=== PATIENT | female | born 1975 | race Caucasian/White ===

== ENCOUNTER 2017-04-27 01:05 | Emergency (ER) | payer SELFPAY ==
[~2017-04-27] VITALS: Ht 162.6 cm; Wt 131.5 kg
[2017-04-27] MEDS ORDERED: methylPREDNISolone 125 MG (Solu-MEDROL) VIAL IV STA (01:22)
--- NOTE | 2017-04-27 01:22 | ED Cough/URI ---
General Stated Complaint: SOB Source: patient History of Present Illness Time seen by provider: 01:13 Initial Comments PT ARRIVES VIA POV FROM HOME C/O PRODUCTIVE COUGH X 2 WEEKS--BROWN/GREEN SPUTUM AT TIMES SHE COUGHS SO HARD IT CAUSES HER TO CHOKE AND GET SHORT OF BREATH HAS HAD A LOT OF POST NASAL DRAINAGE C/O SUBJECTIVE FEVER AND CHILLS C/O GENERALIZED WEAKNESS PT SAW [employer] [facility] 2 WEEKS AGO FOR THIS AND WAS GIVEN RX FOR PREDNISONE X 5 DAYS AND WAS BETTER WHILE SHE WAS TAKING THEM, THEN WHEN FINISHED, SHE HAD INCREASED NASAL DRAINAGE AND INCREASED COUGH HAS NOT FOLLOWED UP SINCE THEN PT DOES HAVE COPD AND HAS USED HER ALBUTEROL INHALER 5-6 TIMES TODAY WITHOUT RELIEF--LAST USED 30 MINUTES AGO PCP: [facility], DR. Omar GONZALEZ Allergies and Home Medications Allergies Coded Allergies: acetaminophen (Verified Allergy, Intermediate, ITCHING, 04/27/17) oxycodone (Verified Allergy, Intermediate, ITCHING, 04/27/17) Home Medications Albuterol 8.5 Gm Hfa.aer.ad, (Reported) Ascorbate Calcium 500 Mg Tablet, (Reported) Aspirin 81 Mg Chew, (Reported) Benzonatate 100 Mg Capsule, 1-2 TAB PO TID, #30 Prescribed by: MAGGIE RAJPUT on 04/27/17237 Ferrous Sulfate 325 Mg Tablet, (Reported) Gabapentin 300 Mg Capsule, (Reported) Guaifenesin/Dextromethorphan 1 Each Tbmp.12hr, 1 EACH PO BID for 10 Days, #20 Prescribed by: MAGGIE RAJPUT on 04/27/17237 Hydrochlorothiazide 25 Mg Tab, (Reported) Levofloxacin 500 Mg Tablet, 500 MG PO DAILY, #10 Prescribed by: MAGGIE RAJPUT on 04/27/17 0238 Methylprednisolone 4 Mg Tab.ds.pk, 4 MG PO UD, #1 Prescribed by: MAGGIE RAJPUT on 04/27/17 023 Naproxen 500 Mg Tablet, (Reported) Oxymetazoline HCl 30 Ml Mist, (Reported) Propranolol Hcl 10 Mg Tablet, (Reported) Ranitidine HCl 150 Mg Tablet, (Reported) Constitutional: see HPI, chills, fever, weakness EENTM: see HPI, nose congestion, other (NASAL DRAINAGE) Respiratory: see HPI, cough, phlegm, short of breath Cardiovascular: no symptoms reported Gastrointestinal: no symptoms reported Genitourinary: no symptoms reported : No LMP: Apr 13, 2017 Musculoskeletal: no symptoms reported Skin: no symptoms reported Psychiatric/Neurological: No Symptoms Reported Hematologic/Lymphatic: No Symptoms Reported Immunological/Allergic: no symptoms reported Past Kyblbdz-Ucgzuc-Ursjga Hx Patient Social History Alcohol Use: Occasionally Uses Recreational Drug Use: No Smoking Status: Current Everyday Smoker (1/2 PPD) Type Used: Cigarettes Recent Foreign Travel: No Contact w/Someone Who Travel: No Surgeries History of Surgeries: Yes ( X 3; EXPLORATORY LAPAROSCOPY) Surgeries: Abdominal, Section, Tubal Ligation Respiratory History of Respiratory Disorde: Yes Respiratory Disorders: Asthma, COPD Cardiovascular History of Cardiac Disorders: Yes Cardiac Disorders: Hypertension Neurological History of Neurological Disord: No Reproductive System : No Hx Reproductive Disorders: No [employer] History: Tubal Ligation Genitourinary History of Genitourinary Disor: No Gastrointestinal History of Gastrointestinal Di: No Musculoskeletal History of Musculoskeletal Dis: Yes (SCIATICA) Musculoskeletal Disorders: Chronic Back Pain Endocrine History of Endocrine Disorders: No HEENT History of HEENT Disorders: No Cancer History of Cancer: No Psychosocial History of Psychiatric Problem: No Integumentary History of Skin or Integumenta: No Blood Transfusions History of Blood Disorders: No Physical Exam Vital Signs Vital Sign - Last 12Hours 04/27/17 01:33 Temp 98.3 Pulse 90 Resp 18 B/P (MAP) 138/82 Pulse Ox 93 O2 Delivery Room Air Capillary Refill : General Appearance: WD/WN, no apparent distress, obese, other (STRONG ODOR OF CIGARETTES. TALKS LOUDLY AT LENGTH. DOES NOT APPEAR TO BE DYSPNEIC) HEENT: PERRL/EOMI, other (POST NASAL DRAINAGE) Neck: normal inspection Respiratory: no respiratory distress, no accessory muscle use, decreased breath sounds (LUNG SOUNDS DIMINISHED IN ALL LUNG BUNCH) Cardiovascular: regular rate, rhythm, no edema, no JVD, no murmur Gastrointestinal: normal bowel sounds, non tender, soft Extremities: normal inspection, no pedal edema, no calf tenderness, normal capillary refill Neurologic/Psychiatric: factorer II-XII nml as tested, no motor/sensory deficits, alert, normal mood/affect, oriented x 3 Skin: normal color, warm/dry Focused Exam Evaluation Lactate Level Laboratory Tests 04/27/17 02:19: Lactic Acid Level 1.72 Lactic Acid Level Laboratory Tests Test 04/27/17 02:19 Lactic Acid Level 1.72 MMOL/L (0.50-2.00) Progress/Results/Core Measures Results/Orders Lab Results Laboratory Tests Test 04/27/17 01:56 04/27/17 02:19 Range/Units White Blood Count 5.8 4.3-11.0 10^3/uL Red Blood Count 4.37 4.35-5.85 10^6/uL Hemoglobin 13.4 11.5-16.0 G/DL Hematocrit 40 35-52 % Mean Corpuscular Volume 90 80-99 FL Mean Corpuscular Hemoglobin 31 25-34 PG Mean Corpuscular Hemoglobin Concent 34 32-36 G/DL Red Cell Distribution Width 16.8 H 10.0-14.5 % Platelet Count 241 130-400 10^3/uL Mean Platelet Volume 10.9 H 7.4-10.4 FL Neutrophils (%) (Auto) 73 42-75 % Lymphocytes (%) (Auto) 15 12-44 % Monocytes (%) (Auto) 10 0-12 % Eosinophils (%) (Auto) 2 0-10 % Basophils (%) (Auto) 0 0-10 % Neutrophils # (Auto) 4.2 1.8-7.8 X 10^3 Lymphocytes # (Auto) 0.9 L 1.0-4.0 X 10^3 Monocytes # (Auto) 0.6 0.0-1.0 X 10^3 Eosinophils # (Auto) 0.1 0.0-0.3 10^3/uL Basophils # (Auto) 0.0 0.0-0.1 10^3/uL Sodium Level 138 135-145 MMOL/L Potassium Level 3.6 3.6-5.0 MMOL/L Chloride Level 102 98-107 MMOL/L Carbon Dioxide Level 23 21-32 MMOL/L Anion Gap 13 5-14 MMOL/L Blood Urea Nitrogen 13 7-18 MG/DL Creatinine 0.79 0.60-1.30 MG/DL Estimat Glomerular Filtration Rate > 60 BUN/Creatinine Ratio 16 Glucose Level 108 H 70-105 MG/DL Calcium Level 8.9 8.5-10.1 MG/DL Total Bilirubin 0.4 0.1-1.0 MG/DL Aspartate Amino Transf (AST/SGOT) 16 5-34 U/L Alanine Aminotransferase (ALT/SGPT) 31 0-55 U/L Alkaline Phosphatase 77 40-136 U/L Total Protein 6.7 6.4-8.2 GM/DL Albumin 3.7 3.2-4.5 GM/DL Serum Test, Qualitative NEGATIVE NEGATIVE Lactic Acid Level 1.72 0.50-2.00 MMOL/L Micro Results Microbiology 04/27/17 Influenza Types A,B Antigen (JACE) - Final, Complete My Orders Orders - MAGGIE RAJPUT DO Saline Lock/Iv-Start (04/27/17 01:22) O2 (04/27/17:22) Monitor-Rhythm Ecg Trace Only (04/27/17:) Cbc With Automated Diff (04/27/17:) Comprehensive Metabolic Panel (04/27/17:) Hcg,Qualitative Serum (04/27/17:) Lactic Acid Analyzer (04/27/17:22) Blood Culture (04/27/17:22) Influenza A And B Antigens (04/27/17:22) Chest Pa/Lat (2 View) (04/27/17 01:22) Albuterol/Ipra Inhalation Soln (Duoneb I (04/27/17 01:30) Dexamethasone Injection (Decadron Inject (04/27/17 01:30) Methylprednisolone Sod Succ (Solu-Medrol (04/27/17 01:22) Svn Sm Volume Nebulizer Rt-Rfs (04/27/17 01:22) Ceftriaxone Injection (Rocephin Injectio (04/27/17 02:45) Levofloxacin Tablet (Levaquin Tablet) (04/27/17 02:35) Benzonatate Capsule (Tessalon Perles) (04/27/17 02:45) Medications Given in ED Current Medications Medications Dose Ordered Sig/Jenny Route Start Time Stop Time Status Last Admin Dose Admin Albuterol/ Ipratropium 3 ml ONCE ONCE INH 04/27/17 01:30 04/27/17 01:31 DC 04/27/17 02:16 3 ML Ceftriaxone Sodium 1000 mg/ Sodium Chloride 50 ml @ 100 mls/hr ONCE ONCE IV 04/27/17 02:45 04/27/17 03:14 04/27/17 02:44 100 MLS/HR Dexamethasone Sodium Phosphate 20 mg ONCE ONCE IH 04/27/17 01:30 04/27/17 01:31 DC 04/27/17 02:17 20 MG Vital Signs/I&O Vital Sign - Last 12Hours 04/27/17 04/27/17 04/27/17 01:33 01:33 02:18 Temp 98.3 Pulse 90 Resp 18 B/P (MAP) 138/82 Pulse Ox 93 97 O2 Delivery Room Air Room Air Room Air Progress Note : Progress Note INCREASED AERATION AFTER NEB TREATMENT Diagnostic Imaging Comments CXR--NO ACUTE PROCESS, PENDING RADIOLOGIST REVIEW Reviewed: Reviewed by Me Departure Impression Impression: Primary Impression: Bronchitis Additional Impressions: Smoker History of COPD Disposition: HOME, SELF-CARE Condition: Improved Departure-Patient Inst. Referrals: ROBI GONZALEZ MD (PCP/Family) Primary Care Physician Patient Instructions: Acute Bronchitis, Adult (DC) Add. Discharge Instructions: LOTS OF CLEAR LIQUIDS TYLENOL AND MOTRIN NEEDED FOR PAIN OR FEVER FOLLOW UP WITH DR. GONZALEZ IN 3-4 DAYS FOR RECHECK Scripts Benzonatate (Tessalon Perle) 100 Mg Capsule 1-2 TAB PO TID for Cough, #30 CAP Prov: MAGGIE RAJPUT DO 04/27/17 Guaifenesin/Dextromethorphan (Mucinex Dm ER 1,200-60 mg Tab) 1 Each Tbmp.12hr 1 EACH PO BID for 10 Days, #20 EA Prov: REGULOMAGGIE K DO 04/27/17 Methylprednisolone (Medrol) 4 Mg Tab.ds.pk 4 MG PO UD, #1 PKG Prov: MAGGIE RAJPUT DO 04/27/17 Levofloxacin (Levaquin) 500 Mg Tablet 500 MG PO DAILY for INFECTION, #10 TAB Prov: MAGGIE RAJPUT DO 04/27/17 MAGGIE RAJPUT DO Apr 27, 2017 01:22
[2017-04-27] MEDS ORDERED: DEXAMETHASONE 4 MG/ML SDV (DECADRON) IH ONE (01:30)
[2017-04-27] MEDS ORDERED: RT-ALBUTEROL/IPRATROPIUM 3 ML (DUONEB) VIAL INH ONE (01:30)
[2017-04-27 02:13] LABS: BASOPHILS % (AUTO) 0 % (0-10); EOSINOPHILS # (AUTO) 0.1 10^3/uL (0.0-0.3); EOSINOPHILS % (AUTO) 2 % (0-10); LYMPHOCYTES # (AUTO) 0.9 X 10^3 (1.0-4.0); LYMPHOCYTES % (AUTO) 15 % (12-44); MEAN CORPUSCULAR HEMOGLOBIN 31 PG (25-34); MEAN CORPUSCULAR HGB CONC 34 G/DL (32-36); MEAN CORPUSCULAR VOLUME 90 FL (80-99); MEAN PLATELET VOLUME 10.9 FL (7.4-10.4); MONOCYTES # (AUTO) 0.6 X 10^3 (0.0-1.0); MONOCYTES % (AUTO) 10 % (0-12); NEUTROPHILS # (AUTO) 4.2 X 10^3 (1.8-7.8); NEUTROPHILS % (AUTO) 73 % (42-75); PLATELET COUNT 241 10^3/uL (130-400); RED BLOOD COUNT 4.37 10^6/uL (4.35-5.85); RED CELL DISTRIBUTION WIDTH 16.8 % (10.0-14.5); WHITE BLOOD COUNT 5.8 10^3/uL (4.3-11.0)
[2017-04-27 02:31] LABS: CARBON DIOXIDE 23 MMOL/L (21-32); CHLORIDE 102 MMOL/L (98-107); POTASSIUM 3.6 MMOL/L (3.6-5.0); SODIUM 138 MMOL/L (135-145)
[2017-04-27 02:32] LABS: ALANINE AMINOTRANSFERASE 31 U/L (0-55); ALBUMIN 3.7 GM/DL (3.2-4.5); ANION GAP 13 MMOL/L (5-14); ASPARTATE AMINO TRANSFERASE 16 U/L (5-34); BILIRUBIN,TOTAL 0.4 MG/DL (0.1-1.0); BLOOD UREA NITROGEN 13 MG/DL (7-18); BUN/CREATININE RATIO 16; CALCIUM 8.9 MG/DL (8.5-10.1); CREATININE SERUM 0.79 MG/DL (0.60-1.30); GFR ESTIMATED > 60; GLUCOSE 108 MG/DL (70-105); TOTAL PROTEIN 6.7 GM/DL (6.4-8.2)
[2017-04-27] MEDS ORDERED: OXYM30MI9 (02:32)
[2017-04-27] MEDS ORDERED: HCT25T (02:32)
[2017-04-27] MEDS ORDERED: PROP10TA8 (02:32)
[2017-04-27] MEDS ORDERED: FERR325T24 (02:32)
[2017-04-27] MEDS ORDERED: ALBU8.5H2 (02:33)
[2017-04-27] MEDS ORDERED: ASPI81TA19 (02:33)
[2017-04-27] MEDS ORDERED: GABA-488 (02:33)
[2017-04-27] MEDS ORDERED: NAPR500T (02:33)
[2017-04-27] MEDS ORDERED: ASCO-262 (02:33)
[2017-04-27] MEDS ORDERED: RANI150T90 (02:33)
[2017-04-27] MEDS ORDERED: LEVOFLOXACIN 500 MG TAB (LEVAQUIN) PO STA (02:35)
[2017-04-27] MEDS ORDERED: METH4TAB PO (02:38)
[2017-04-27] MEDS ORDERED: BENZ-13 PO (02:38)
[2017-04-27] MEDS ORDERED: GUAI1TBM19 PO (02:38)
[2017-04-27] MEDS ORDERED: LEVO500T2 PO (02:38)
[2017-04-27] MEDS ORDERED: BENZONATATE 100 MG (TESSALON) CAPSULE PO SCH (02:45)
[2017-04-27] MEDS ORDERED: cefTRIAXone INJECTION 1,000 MG in NS (IVPB) 50 ML IV ONE (02:45)
[2017-04-27 03:22] VITALS: BP 126/96
--- NOTE | 2017-04-27 07:16 | Diagnostic Imaging Report ---
PA and lateral views of the chest Indication: Shortness of breath Findings: The lungs are clear. The heart size is normal. There is no effusion or pneumothorax The mediastinum and rafael appear unremarkable. Impression: Unremarkable study. Dictated by: Dictated on workstation # [id number]
== END 2017-04-27 03:25 | disposition home or self-care (01) ==
LOC: ER 01:08
DX: J40 Bronchitis, not specified as acute or chronic (principal); J44.9 Chronic obstructive pulmonary disease, unspecified; I10 Essential (primary) hypertension; F17.210 Nicotine dependence, cigarettes, uncomplicated; Z98.51 Tubal ligation status; Z87.59 Personal history of other complications of pregnancy, childbirth and the puerperium; Z79.4 Long term (current) use of insulin
CPT/HCPCS: 36415; 71020; 80053; 83605; 84703; 85025; 87040; 87804; 94640; 96374; 96375

== ENCOUNTER 2018-07-28 15:30 | Emergency (ER) | payer SELFPAY ==
[~2018-07-28] VITALS: Ht 162.6 cm; Wt 121.6 kg
[~2018-07-28 15:30] MED LIST: ALBU8.5H2; ASCO-262; ASPI81TA19; BENZ100C18 PO; FERR325T24; GABA-488; GUAI1TBM19 PO; HCT25T; LEVO500T2 PO; METH4TAB PO; NAPR-1071; OXYM30MI9; PROP10TA8; RANI150T90
--- OUTSIDE RECORDS SUMMARY | 2018-07-28 15:39 | XMS REPORT ---
Author Author CHIDI RODRIGUEZ Organization [facility] [place] Address [address] [place] [address] Care Team Providers Care Social Media Marketing Manager Name Role Phone JENNIFERCHIDI Unavailable PROBLEMS Type Condition ICD9-CM Code HLF88-CB Code Onset Dates Condition Status SNOMED Code Problem Benign essential tremor G25.0 Active 726521658 Problem Sciatica, right side M54.31 Active 07433930 Problem Essential hypertension I10 Active 73951322 Problem PTSD (post-traumatic stress disorder) F43.10 Active 12882066 Problem Mild intermittent asthma J45.20 Active 297478243 Problem Moderate episode of recurrent major depressive disorder F33.1 Active 542731931 Problem Iron deficiency anemia secondary to inadequate dietary iron intake D50.8 Active 938646793 Problem Mild intermittent asthma with (acute) exacerbation J45.21 Active 179693111 Problem Unspecified mood [affective] disorder F39 Active 62607735 ALLERGIES No Information ENCOUNTERS Encounter Location Date Diagnosis [facility] [id number] [place] [phone] Jul, [place] [id number] [place] [phone] Jul, Unspecified mood [affective] disorder F39 [place] [address] [address] Jun, Unspecified mood [affective] disorder F39 ; PTSD (post- traumatic stress disorder) F43.10 and Other halfway (current) drug therapy Z79.899 [place] [address] [address] Jun, Acute nasopharyngitis J00 and BMI 45.0-49.9, adult Z68.42 [place] [address] [address] Jun, Unspecified mood [affective] disorder F39 and Posttraumatic stress disorder F43.10 [facility] [place] [id number] [place] [phone] Jun, [facility] [place] [id number] [place] [phone] May, Unspecified mood [affective] disorder F39 and PTSD (post- traumatic stress disorder) F43.10 [place] [id number] [place] [address] 94[address] [phone] May, Unspecified mood [affective] disorder F39 and Posttraumatic stress disorder F43.10 [place] [id number] [place] [address] 6[address]- [address] May, Unspecified mood [affective] disorder F39 [place] [id number] [place] [phone] Apr, Unspecified mood [affective] disorder F39 and PTSD (post- traumatic stress disorder) F43.10 [place] [id number] [place] [address] [phone]- [phone] Mar, Unspecified mood [affective] disorder F39 and PTSD (post- traumatic stress disorder) F43.10 [place] [address] [address] Mar, Unspecified mood [affective] disorder F39 and Mild intermittent asthma J45.20 [facility] [place] [address] [address] Mar, 2018 Unspecified mood [affective] disorder F39 and Posttraumatic stress disorder F43.10 [place] [id number] [place] [phone] Feb, Mild intermittent asthma with (acute) exacerbation J45.21 [facility] [place] [address] [address] Feb, Essential hypertension I10 and Moderate episode of recurrent major depressive disorder F33.1 [facility] [place] [address] [address] Feb, Unspecified mood [affective] disorder F39 and Posttraumatic stress disorder F43.10 [facility] [place] [address] [address] Feb, [facility] [place] [id number] [place] [address] Jan, Unspecified mood [affective] disorder F39 and Posttraumatic stress disorder F43.10 [facility] [place] [id number] [place] [address] 0[address]- [address] Jan, Sciatica, right side M54.31 ; Moderate episode of recurrent major depressive disorder F33.1 ; Non-seasonal allergic rhinitis, unspecified trigger J30.89 ; Mild intermittent asthma with (acute) exacerbation J45.21 and BMI 50.0-59.9, adult Z68.43 [place] [address] [place] [address] 038[address]- 40[address] Jan, Unspecified mood [affective] disorder F39 [place] [id number] [place] [address] 27[address] December, Unspecified mood [affective] disorder F39 [facility] [place] [address] [place] [address]- [address] December, [facility] [place] [id number] [place] [address] 91[address]- 84[address] Nov, Essential hypertension I10 [facility] [address] [place] [phone] Nov, Dental examination Z01.20 and Dental caries K02.9 [facility] [place] [id number] [place] [address]27- [address] Nov, [facility] [place] [id number] [place] [address] 37565- 5107 Nov, Moderate episode of recurrent major depressive disorder F33.1 ; Essential hypertension I10 and BMI 50.0-59.9, adult Z68.43 [facility] [place] [id number] [place] [address] 89[address]- [address] Oct, [facility] [place] [id number] [place] [address] 14916- [address] Oct, [facility] [id number] [place] [address] Sep, Acute non-recurrent maxillary sinusitis J01.00 and BMI 50.0 -59.9, adult Z68.43 [facility] [id number] [place] [address] Sep, Acute non-recurrent maxillary sinusitis J01.00 and BMI 50.0 -59.9, adult Z68.43 [place] [id number] [place] [address]- [phone] Jun, Acute suppurative otitis media of right ear without spontaneous rupture of tympanic membrane, recurrence not specified H66.001 ; BMI 50.0-59.9, adult Z68.43 and BMI 60.0-69.9, adult Z68.44 [place] [id number] [place] [address] 30120- [address] Jun, [place] [id number] [place] [address] 859[address]- [address] May, [place] [address] [address] Apr, Benign essential tremor G25.0 [place] [id number] [place] [address] 50381- [address] Apr, [place] [address] [address] Apr, Benign paroxysmal vertigo of both ears H81.13 [place] [id number] [place] [address] 22298- 0682 Mar, [place] [address] [facility] [id number] [address] Feb, Sciatica, right side M54.31 ; Essential hypertension I10 ; Iron deficiency anemia secondary to inadequate dietary iron intake D50.8 and Benign essential tremor G25.0 [place] [id number] [address] Feb, Benign essential tremor G25.0 and Essential hypertension I10 [place] [id number] [address] Feb, Benign essential tremor G25.0 and Essential hypertension I10 IMMUNIZATIONS No Known Immunizations SOCIAL HISTORY Never Assessed REASON FOR VISIT Repository Medication PLAN OF CARE VITAL SIGNS MEDICATIONS Medication Instructions Dosage Frequency Start Date End Date Duration Status Pristiq 50 MG Orally Once a day 2 tablet 24h Jun, 45 days Active RESULTS No Results PROCEDURES No Known procedures INSTRUCTIONS MEDICATIONS ADMINISTERED No Known Medications MEDICAL (GENERAL) HISTORY Type Description Date Medical History asthma Medical History chronic obstructive pulmonary disease (COPD) Medical History HTN Medical History sciatic pain Surgical History section x3 Surgical History exploratory laparoscopy Surgical History tubal ligation
--- OUTSIDE RECORDS SUMMARY | 2018-07-28 15:39 | XMS REPORT ---
Author Author CHIDI RODRIGUEZ [facility] Address [address] [place] [address] Care Team Providers Care Machine Steak Tenderizer Name Role Phone JENNIFERCHIDI Unavailable PROBLEMS Type Condition ICD9-CM Code [id number] Code Onset Dates Condition Status SNOMED Code Problem Benign essential tremor G25.0 Active 704742132 Problem Sciatica, right side M54.31 Active 27640323 Problem Essential hypertension I10 Active 32056279 Problem PTSD (post-traumatic stress disorder) F43.10 Active 36351477 Problem Mild intermittent asthma J45.20 Active 305611872 Problem Moderate episode of recurrent major depressive disorder F33.1 Active 700349873 Problem Iron deficiency anemia secondary to inadequate dietary iron intake D50.8 Active 292388765 Problem Mild intermittent asthma with (acute) exacerbation J45.21 Active 201781935 Problem Unspecified mood [affective] disorder F39 Active 92120027 ALLERGIES Substance Reaction Event Type Date Status Percocet itching Drug Allergy Jun, Active ENCOUNTERS Encounter Location Date Diagnosis [place] [id number] [place] [address] 12109- 2288 Jul, [place] [address] [place] [id number] [place] [address] 95731- 0216 Jul, [place] [address] [place] [id number] [place] [address] 94756- 0538 Jun, Unspecified mood [affective] disorder F39 ; PTSD (post- traumatic stress disorder) F43.10 and Other release specialist (current) drug therapy Z79.899 [place] [address] [place] [address] 80580- 5223 Jun, Acute nasopharyngitis J00 and BMI 45.0-49.9, adult Z68.42 [place] [address] [place] [id number] [address] Jun, Unspecified mood [affective] disorder F39 and Posttraumatic stress disorder F43.10 [facility] [address] [place] [id number] [place] [address] 06902- 1688 Jun, [facility] [address] [place] [address] [id number] [place] [address] 14205- 6784 May, Unspecified mood [affective] disorder F39 and PTSD (post- traumatic stress disorder) F43.10 [place] [address] [place] [id number] [place] [address] 82515- 0228 May, Unspecified mood [affective] disorder F39 and Posttraumatic stress disorder F43.10 [place] [address] [place] [id number] [place] [address] 20345- 3286 May, Unspecified mood [affective] disorder F39 [place] [address] [place] [id number] [place] [address] 28702- 4073 Apr, Unspecified mood [affective] disorder F39 and PTSD (post- traumatic stress disorder) F43.10 [place] [address] [place] [id number] [place] [address] 60772- 7048 Mar, Unspecified mood [affective] disorder F39 and PTSD (post- traumatic stress disorder) F43.10 [place] [address] [address] 3496 Mar, Unspecified mood [affective] disorder F39 and Mild intermittent asthma J45.20 [place] [address] [place] [id number] [place] [address] 28326- 8470 07 Mar, 2018 Unspecified mood [affective] disorder F39 and Posttraumatic stress disorder F43.10 [place] [address] [place] [id number] [place] [address] 02651- 4058 Feb, Mild intermittent asthma with (acute) exacerbation J45.21 [place] [address] [place] [address] 29049- 4674 Feb, Essential hypertension I10 and Moderate episode of recurrent major depressive disorder F33.1 [facility] [address] [address] 1841 Feb, Unspecified mood [affective] disorder F39 and Posttraumatic stress disorder F43.10 [facility] [address] [place] [id number] [place] [address] 66958- 6487 Feb, [facility] [address] [place] [id number] [place] [address] 40306- 4082 Jan, Unspecified mood [affective] disorder F39 and Posttraumatic stress disorder F43.10 [place] [address] [place] [id number] [place] [address] 25260- 9948 Jan, Sciatica, right side M54.31 ; Moderate episode of recurrent major depressive disorder F33.1 ; Non-seasonal allergic rhinitis, unspecified trigger J30.89 ; Mild intermittent asthma with (acute) exacerbation J45.21 and BMI 50.0-59.9, adult Z68.43 [facility] [address] [place] [address] [id number] [place] [address] 12316- 6612 Jan, Unspecified mood [affective] disorder F39 [facility] [address] [place] [id number] [place] [address] 40237- 0242 December, Unspecified mood [affective] disorder F39 [facility] [address] [place] [id number] [place] [address] 39416- 9213 December, [facility] [address] [place] [id number] [place] [address] 31464- 7786 Nov, Essential hypertension I10 [facility] [id number] [place] [address] [id number] Nov, Dental examination Z01.20 and Dental caries K02.9 [facility] [address] [place] [address] 19608- 5918 Nov, [facility] [address] [place] [id number] [place] [address] 63799- 5762 Nov, Moderate episode of recurrent major depressive disorder F33.1 ; Essential hypertension I10 and BMI 50.0-59.9, adult Z68.43 [place] [address] [place] [id number] [place] [address] 44637- 6804 Oct, [facility] [address] [place] [id number] [place] [address] 73607- 3551 Oct, [facility] [address] 26[address] -2291 Sep, Acute non-recurrent maxillary sinusitis J01.00 and BMI 50.0 -59.9, adult Z68.[address] [facility] [address] 264[address] -1396 Sep, Acute non-recurrent maxillary sinusitis J01.00 and BMI 50.0 -59.9, adult Z68.43 [place] [address] 16162- 6129 Jun, Acute suppurative otitis media of right ear without spontaneous rupture of tympanic membrane, recurrence not specified H66.001 ; BMI 50.0-59.9, adult Z68.43 and BMI 60.0-69.9, adult Z68.44 [place] [address] [place] [id number] [place] [address] 23060- 6410 Jun, [place] [address] [place] [id number] [place] [address] 34618- 5925 May, [place] [address] 07812- 9714 Apr, Benign essential tremor G25.0 [place] [address] 50632- 2294 Apr, [place] [address] 04542- 5379 Apr, Benign paroxysmal vertigo of both ears H81.13 [place] [address] 11124- 0042 Mar, [facility] [address] [facility] [id number] [address] Feb, Sciatica, right side M54.31 ; Essential hypertension I10 ; Iron deficiency anemia secondary to inadequate dietary iron intake D50.8 and Benign essential tremor G25.0 [place] [address] [place] [id number] [address]- 9150 Feb, Benign essential tremor G25.0 and Essential hypertension I10 [place] [address] [facility] [id number] [address]- 3385 Feb, Benign essential tremor G25.0 and Essential hypertension I10 IMMUNIZATIONS No Known Immunizations SOCIAL HISTORY Never Assessed REASON FOR VISIT LIANA f/uBryce campo ma PLAN OF CARE Activity Details Follow Up 4 Weeks Reason: f/u VITAL SIGNS Height 63 in 2018-07-03 Weight 269.4 lbs 2018-07-03 Heart Rate 80 bpm 2018-07-03 Respiratory Rate 20 2018-07-03 BMI 47.72 kg/m2 2018-07-03 Blood pressure systolic 126 mmHg 2018-07-03 Blood pressure diastolic 90 mmHg 2018-07-03 MEDICATIONS Medication Instructions Dosage Frequency Start Date End Date Duration Status Gabapentin 300 MG Orally Three times a day 1 capsule 8h Feb, 30 day(s) Active Latuda 40 mg Orally Once a day 1 tablet with food 24h Mar, Active Vitamin C 500 MG Orally Once a day 1 tablet 24h Active Hydrochlorothiazide 25 MG Orally Once a day 1 tablet in the morning 24h Feb, 90 days Active SudoGest 60 mg Orally every 6 hrs 1 tablet as needed 6h Jun, 5 days Not-Taking Flonase 50 MCG/ACT Nasally Once a day 1 spray in each nostril 24h 30 day(s) Active Propranolol HCl 10 mg Orally Twice a day 1 tablet 12h 30 Active ProAir HFA 108 (90 Base) MCG/ACT Inhalation every 4 hrs 2 puffs as needed 4h 90 days Not-Taking Proventil HFA 108 (90 Base) MCG/ACT INHALE TWO PUFFS BY MOUTH EVERY 4 HOURS NEEDED 17 Active Ferrous Sulfate 325 (65 Fe) MG Orally Once a day 1 tablet 24h Feb, 30 day(s) Active Pristiq 100 mg Orally Once a day 1 tablet 24h 28 Jun, 2018 30 day(s) Active Cyclobenzaprine HCl 10 mg Orally 2 times a day 1 tablet as needed 12h 18 Jan, 2018 Not-Taking RESULTS No Results PROCEDURES No Known procedures INSTRUCTIONS MEDICATIONS ADMINISTERED No Known Medications MEDICAL (GENERAL) HISTORY Type Description Date Medical History asthma Medical History chronic obstructive pulmonary disease (COPD) Medical History HTN Medical History sciatic pain Surgical History section x3 Surgical History exploratory laparoscopy Surgical History tubal ligation
--- OUTSIDE RECORDS SUMMARY | 2018-07-28 15:40 | XMS REPORT ---
Author Author JERRICA CAIN Organization [facility] Address [address] [place] [address] Care Team Providers Care Magnetic Resonance Imaging Coordinator Name Role Phone JERRICA CAIN Unavailable PROBLEMS Type Condition ICD9-CM Code [id number] Code Onset Dates Condition Status SNOMED Code Problem Benign essential tremor G25.0 Active 752660502 Problem Sciatica, right side M54.31 Active 67079326 Problem Essential hypertension I10 Active 56519250 Problem PTSD (post-traumatic stress disorder) F43.10 Active 76995708 Problem Mild intermittent asthma J45.20 Active 809805263 Problem Moderate episode of recurrent major depressive disorder F33.1 Active 944590827 Problem Iron deficiency anemia secondary to inadequate dietary iron intake D50.8 Active 857796015 Problem Mild intermittent asthma with (acute) exacerbation J45.21 Active 990840573 Problem Unspecified mood [affective] disorder F39 Active 57804190 ALLERGIES No Information ENCOUNTERS Encounter Location Date Diagnosis [facility] [address] [place] [address] 26453- 4125 Jun, [facility] [address] [place] [id number] [place] [address] 46661- 0534 May, [facility] [address] [place] [id number] [place] [address] 97725- 5164 May, Unspecified mood [affective] disorder F39 and Posttraumatic stress disorder F43.10 [facility] [address] [place] [id number] [place] [address] 00919- 0452 May, Unspecified mood [affective] disorder F39 [facility] [address] [place] [id number] [place] [address] 87386- 1016 Apr, Unspecified mood [affective] disorder F39 and PTSD (post- traumatic stress disorder) F43.10 [facility] [address] [place] [id number] [place] [address] 57440- 9930 Mar, Unspecified mood [affective] disorder F39 and PTSD (post- traumatic stress disorder) F43.10 [place] [address] [place] [id number] [place] [address] 31986- 9488 13 Mar, 2018 Unspecified mood [affective] disorder F39 and Mild intermittent asthma J45.20 [place] [address] [place] [id number] [place] [address] 74546- 8891 07 Mar, 2018 Unspecified mood [affective] disorder F39 and Posttraumatic stress disorder F43.10 [place] [address] [place] [id number] [place] [address] 25492- 6061 23 Feb, 2018 Mild intermittent asthma with (acute) exacerbation J45.21 [place] [address] [place] [id number] [place] [address] 72882- 8653 Feb, Essential hypertension I10 and Moderate episode of recurrent major depressive disorder F33.1 [place] [address] [place] [id number] [place] [address] 31981- 2207 Feb, Unspecified mood [affective] disorder F39 and Posttraumatic stress disorder F43.10 [place] [address] [place] [id number] [place] [address] 57020- 8419 Feb, [place] [address] [place] [id number] [place] [address] 81297- 7426 Jan, Unspecified mood [affective] disorder F39 and Posttraumatic stress disorder F43.10 [place] [address] [place] [id number] [place] [address] 14128- 3622 18 Jan, 2018 Sciatica, right side M54.31 ; Moderate episode of recurrent major depressive disorder F33.1 ; Non-seasonal allergic rhinitis, unspecified trigger J30.89 ; Mild intermittent asthma with (acute) exacerbation J45.21 and BMI 50.0-59.9, adult Z68.43 [place] [address] [place] [id number] [place] [address] 70380- 1040 05 Jan, 2018 Unspecified mood [affective] disorder F39 [facility] [address] [place] [address] 26273- 9184 December, Unspecified mood [affective] disorder F39 [facility] [address] [place] [id number] [place] [address] 83460- 4159 December, [facility] [address] [place] [id number] [place] [address] 30882- 3254 Nov, Essential hypertension I10 [facility] [address] [place] [id number] [place] [address] [id number] Nov, Dental examination Z01.20 and Dental caries K02.9 [place] [address] [place] [id number] [place] [address] 45122- 8515 Nov, [facility] [address] [place] [id number] [place] [address] 45662- 5626 Nov, Moderate episode of recurrent major depressive disorder F33.1 ; Essential hypertension I10 and BMI 50.0-59.9, adult Z68.43 [facility] [address] [place] [id number] [place] [address] 10538- 5361 Oct, [facility] [address] [place] [id number] [place] [address] 88616- 9912 Oct, [facility] [address] [place] [id number] [place] [address] 88315 -9491 Sep, Acute non-recurrent maxillary sinusitis J01.00 and BMI 50.0 -59.9, adult Z68.43 [facility] [address] [place] [address] 27725 -1797 Sep, Acute non-recurrent maxillary sinusitis J01.00 and BMI 50.0 -59.9, adult Z68.43 [facility] [address] [place] [address] 05054- 9619 Jun, Acute suppurative otitis media of right ear without spontaneous rupture of tympanic membrane, recurrence not specified H66.001 ; BMI 50.0-59.9, adult Z68.43 and BMI 60.0-69.9, adult Z68.44 [place] [address] [address]- 6284 Jun, [place] [address] [place] [id number] [place] [address] 09369- 1747 May, [place] [address] [place] [id number] [place] [address] 14013- 4326 Apr, Benign essential tremor G25.0 [place] [address] [place] [id number] [place] [address] 46074- 3414 Apr, [place] [address] [place] [id number] [place] [address] 56304- 1569 Apr, Benign paroxysmal vertigo of both ears H81.13 [place] [address] [place] [id number] [place] [address] 19416- 3281 Mar, [place] [address] [place] [id number] [place] [address] 99958- 9445 Feb, Sciatica, right side M54.31 ; Essential hypertension I10 ; Iron deficiency anemia secondary to inadequate dietary iron intake D50.8 and Benign essential tremor G25.0 [place] [address] [address]- 2660 Feb, Benign essential tremor G25.0 and Essential hypertension I10 [place] [address] [address]- 5851 Feb, Benign essential tremor G25.0 and Essential hypertension I10 IMMUNIZATIONS No Known Immunizations SOCIAL HISTORY Never Assessed REASON FOR VISIT f/u PLAN OF CARE Activity Details Follow Up 2 Weeks Reason:mood and anxiety VITAL SIGNS MEDICATIONS Unknown Medications RESULTS No Results PROCEDURES Procedure Date Ordered Result Body Site Psychotherapy, patient &/family, 30 minutes, established patient May 13, 2018 INSTRUCTIONS MEDICATIONS ADMINISTERED No Known Medications MEDICAL (GENERAL) HISTORY Type Description Date Medical History asthma Medical History chronic obstructive pulmonary disease (COPD) Medical History HTN Medical History sciatic pain Surgical History section x3 Surgical History exploratory laparoscopy Surgical History tubal ligation
--- OUTSIDE RECORDS SUMMARY | 2018-07-28 15:40 | XMS REPORT ---
Author Author CHIDI RODRIGUEZ [facility] Address [address] [place] [address] Care Team Providers Care Construction Recruiter Name Role Phone JENNIFERCHIDI Unavailable PROBLEMS Type Condition ICD9-CM Code [id number] Code Onset Dates Condition Status SNOMED Code Problem Benign essential tremor G25.0 Active 249893115 Problem Sciatica, right side M54.31 Active 03476945 Problem Essential hypertension I10 Active 53206768 Problem PTSD (post-traumatic stress disorder) F43.10 Active 55217003 Problem Mild intermittent asthma J45.20 Active 685226946 Problem Moderate episode of recurrent major depressive disorder F33.1 Active 401610189 Problem Iron deficiency anemia secondary to inadequate dietary iron intake D50.8 Active 079103207 Problem Mild intermittent asthma with (acute) exacerbation J45.21 Active 761914017 Problem Unspecified mood [affective] disorder F39 Active 25050737 ALLERGIES Substance Reaction Event Type Date Status Percocet itching Drug Allergy May, Active ENCOUNTERS Encounter Location Date Diagnosis [facility] [id number] [place] [address] 76351- 6771 Jul, [facility] [id number] [place] [address] 11920- 0742 Jun, [facility] [id number] [place] [address] 11618- 7633 Jun, [facility] [id number] [place] [address] 03224- 6101 Jun, [facility] [id number] [place] [address] 03977- 1108 May, Unspecified mood [affective] disorder F39 and PTSD (post- traumatic stress disorder) F43.10 [facility] [address] [place] [address] 08 May, 2018 Unspecified mood [affective] disorder F39 and Posttraumatic stress disorder F43.10 [facility] [id number] [place] [address] 13323- 3016 May, Unspecified mood [affective] disorder F39 [facility] [id number] [place] [address] 87053- 3566 Apr, Unspecified mood [affective] disorder F39 and PTSD (post- traumatic stress disorder) F43.10 [place] [facility] [id number] [place] [address] 35176- 9098 Mar, Unspecified mood [affective] disorder F39 and PTSD (post- traumatic stress disorder) F43.10 [place] [address] [place] [address] 45292- 2621 Mar, Unspecified mood [affective] disorder F39 and Mild intermittent asthma J45.20 [facility] [id number] [place] [address] 51601- 4487 Mar, Unspecified mood [affective] disorder F39 and Posttraumatic stress disorder F43.10 [facility] [id number] [place] [address] 56160- 0168 Feb, Mild intermittent asthma with (acute) exacerbation J45.21 [facility] [id number] [place] [address] 87238- 5991 Feb, Essential hypertension I10 and Moderate episode of recurrent major depressive disorder F33.1 [facility] [id number] [place] [address] 85880- 6228 Feb, Unspecified mood [affective] disorder F39 and Posttraumatic stress disorder F43.10 [facility] [id number] [place] [address] 16559- 2029 Feb, [facility] [id number] [place] [address] 06574- 2609 Jan, Unspecified mood [affective] disorder F39 and Posttraumatic stress disorder F43.10 [facility] [address] [place] [address] 74039- 1079 18 Jan, 2018 Sciatica, right side M54.31 ; Moderate episode of recurrent major depressive disorder F33.1 ; Non-seasonal allergic rhinitis, unspecified trigger J30.89 ; Mild intermittent asthma with (acute) exacerbation J45.21 and BMI 50.0-59.9, adult Z68.43 [facility] [id number] [place] [address] 45226- 7274 05 Jan, 2018 Unspecified mood [affective] disorder F39 [facility] [id number] [place] [address] 99218- 9878 December, Unspecified mood [affective] disorder F39 [facility] [id number] [place] [address] 28981- 7217 December, [facility] [address] 13501- 0461 Nov, Essential hypertension I10 [facility] [address] [place] [address] [phone] Nov, Dental examination Z01.20 and Dental caries K02.9 [facility] [address] [place] [address] 19027- 8581 Nov, [facility] [address] [place] [address] 94191- 6153 Nov, Moderate episode of recurrent major depressive disorder F33.1 ; Essential hypertension I10 and BMI 50.0-59.9, adult Z68.43 [facility] [id number] [place] [address] 41515- 9685 Oct, [facility] [id number] [place] [address] 21780- 0457 Oct, [facility] [address] [place] [address] 35340 -3664 Sep, Acute non-recurrent maxillary sinusitis J01.00 and BMI 50.0 -59.9, adult Z68.43 [facility] [id number] [place] [address] 26173 -2644 Sep, Acute non-recurrent maxillary sinusitis J01.00 and BMI 50.0 -59.9, adult Z68.43 [facility] [address] 93091- 2700 Jun, Acute suppurative otitis media of right ear without spontaneous rupture of tympanic membrane, recurrence not specified H66.001 ; BMI 50.0-59.9, adult Z68.43 and BMI 60.0-69.9, adult Z68.44 [place] [address] 24684- 1876 Jun, [place] [facility] [address] 53586- 2202 May, [facility] [facility] [address] 17320- 9259 Apr, Benign essential tremor G25.0 [place] [facility] [address] 44236- 3170 Apr, [facility] [facility] [address] 55946- 0128 Apr, Benign paroxysmal vertigo of both ears H81.13 [place] [address] 19962- 5048 Mar, [facility] [address] 67143- 6407 Feb, Sciatica, right side M54.31 ; Essential hypertension I10 ; Iron deficiency anemia secondary to inadequate dietary iron intake D50.8 and Benign essential tremor G25.0 [facility] [id number] [place] [address] 15815- 1097 Feb, Benign essential tremor G25.0 and Essential hypertension I10 [facility] [address] 96777- 0430 Feb, Benign essential tremor G25.0 and Essential hypertension I10 IMMUNIZATIONS No Known Immunizations SOCIAL HISTORY Never Assessed REASON FOR VISIT f/u-AB/MA PLAN OF CARE Activity Details Follow Up 4 Weeks Reason: Follow-up VITAL SIGNS Height 63 in 2018-06-04 Weight 268.3 lbs 2018-06-04 Heart Rate 82 bpm 2018-06-04 Respiratory Rate 20 2018-06-04 BMI 47.52 kg/m2 2018-06-04 Blood pressure systolic 152 mmHg 2018-06-04 Blood pressure diastolic 92 mmHg 2018-06-04 MEDICATIONS Medication Instructions Dosage Frequency Start Date End Date Duration Status Proventil HFA 108 (90 Base) MCG/ACT INHALE TWO PUFFS BY MOUTH EVERY 4 HOURS NEEDED 17 Not-Taking Propranolol HCl 10 mg Orally Twice a day 1 tablet 12h 30 Active Latuda 40 mg Orally Once a day 1 tablet with food 24h Mar, Active Ferrous Sulfate 325 (65 Fe) MG Orally Once a day 1 tablet 24h Feb, 30 day(s) Active Vitamin C 500 MG Orally Once a day 1 tablet 24h Active Cyclobenzaprine HCl 10 mg Orally 2 times a day 1 tablet as needed 12h 18 Jan, 2018 Not-Taking Pristiq 50 mg Orally Once a day 1 tablet 24h May, 30 day(s) Active Flonase 50 MCG/ACT Nasally Once a day 1 spray in each nostril 24h 30 day(s) Active Gabapentin 300 MG Orally Three times a day 1 capsule 8h Feb, 30 day(s) Active Hydrochlorothiazide 25 MG Orally Once a day 1 tablet in the morning 24h Feb, 90 days Active ProAir HFA 108 (90 Base) MCG/ACT Inhalation every 4 hrs 2 puffs as needed 4h 90 days Active RESULTS No Results PROCEDURES No Known procedures INSTRUCTIONS MEDICATIONS ADMINISTERED No Known Medications MEDICAL (GENERAL) HISTORY Type Description Date Medical History asthma Medical History chronic obstructive pulmonary disease (COPD) Medical History HTN Medical History sciatic pain Surgical History section x3 Surgical History exploratory laparoscopy Surgical History tubal ligation
--- OUTSIDE RECORDS SUMMARY | 2018-07-28 15:40 | XMS REPORT ---
Author Author ROBI GONZALEZ Organization [facility] Address [address] [place] [address] Care Team Providers Care Contaminated Land Consultant Name Role Phone ROBI GONZALEZ Unavailable PROBLEMS Type Condition ICD9-CM Code HKD67-TG Code Onset Dates Condition Status SNOMED Code Problem Benign essential tremor G25.0 Active 171744091 Problem Sciatica, right side M54.31 Active 26306961 Problem Essential hypertension I10 Active 43592058 Problem PTSD (post-traumatic stress disorder) F43.10 Active 83613860 Problem Mild intermittent asthma J45.20 Active 917139947 Problem Moderate episode of recurrent major depressive disorder F33.1 Active 450959278 Problem Iron deficiency anemia secondary to inadequate dietary iron intake D50.8 Active 239394278 Problem Mild intermittent asthma with (acute) exacerbation J45.21 Active 263830962 Problem Unspecified mood [affective] disorder F39 Active 99733644 ALLERGIES No Information ENCOUNTERS Encounter Location Date Diagnosis [facility] [id number] [place] [address] 42187- 3310 Jul, [facility] [id number] [place] [address] 26081- 3311 Jun, [facility] [id number] [place] [address] 95131- 5907 Jun, [facility] [id number] [place] [address] 10439- 2626 Jun, [facility] [id number] [place] [address] 17234- 7593 May, Unspecified mood [affective] disorder F39 and PTSD (post- traumatic stress disorder) F43.10 [facility] [id number] [place] [address] 24856- 0913 May, Unspecified mood [affective] disorder F39 and Posttraumatic stress disorder F43.10 [facility] [address] [address]- 4843 May, Unspecified mood [affective] disorder F39 [facility] [id number] [place] [address] 17404- 1138 Apr, Unspecified mood [affective] disorder F39 and PTSD (post- traumatic stress disorder) F43.10 [facility] [id number] [place] [address] 17660- 2939 Mar, Unspecified mood [affective] disorder F39 and PTSD (post- traumatic stress disorder) F43.10 [place] [facility] [id number] [place] [address] 50095- 1581 Mar, Unspecified mood [affective] disorder F39 and Mild intermittent asthma J45.20 [facility] [facility] [id number] [place] [address] 46141- 9601 Mar, Unspecified mood [affective] disorder F39 and Posttraumatic stress disorder F43.10 [facility] [id number] [place] [address] 55052- 4325 Feb, Mild intermittent asthma with (acute) exacerbation J45.21 [facility] [id number] [place] [address] 55981- 3084 Feb, Essential hypertension I10 and Moderate episode of recurrent major depressive disorder F33.1 [facility] [id number] [place] [address] 58465- 5574 Feb, Unspecified mood [affective] disorder F39 and Posttraumatic stress disorder F43.10 [facility] [facility] [id number] [place] [address] 23179- 2927 Feb, [facility] [facility] [id number] [place] [address] 13306- 1032 Jan, Unspecified mood [affective] disorder F39 and Posttraumatic stress disorder F43.10 [facility] [id number] [place] [address] 52041- 4784 Jan, Sciatica, right side M54.31 ; Moderate episode of recurrent major depressive disorder F33.1 ; Non-seasonal allergic rhinitis, unspecified trigger J30.89 ; Mild intermittent asthma with (acute) exacerbation J45.21 and BMI 50.0-59.9, adult Z68.43 [facility] [id number] [place] [address] 10025- 5510 Jan, Unspecified mood [affective] disorder F39 [facility] [id number] [place] [address] 76009- 3001 December, Unspecified mood [affective] disorder F39 [facility] [id number] [place] [address] 54166- 9314 December, [facility] [id number] [place] [address] 76252- 2204 Nov, Essential hypertension I10 [facility] [id number] [place] [address] [phone] Nov, Dental examination Z01.20 and Dental caries K02.9 [place] [id number] [place] [address] 22709- 0723 Nov, [facility] [id number] [place] [address] 44665- 9428 Nov, Moderate episode of recurrent major depressive disorder F33.1 ; Essential hypertension I10 and BMI 50.0-59.9, adult Z68.43 [facility] [id number] [place] [address] 35896- 7855 Oct, [facility] [id number] [place] [address] 68784- 2028 Oct, [facility] [id number] [place] [address] 22278 -1231 Sep, Acute non-recurrent maxillary sinusitis J01.00 and BMI 50.0 -59.9, adult Z68.43 [facility] [address] [place] [address] 90786 -6624 Sep, Acute non-recurrent maxillary sinusitis J01.00 and BMI 50.0 -59.9, adult Z68.43 [facility] [id number] [place] [address] 46551- 2269 Jun, Acute suppurative otitis media of right ear without spontaneous rupture of tympanic membrane, recurrence not specified H66.001 ; BMI 50.0-59.9, adult Z68.43 and BMI 60.0-69.9, adult Z68.44 [facility] [id number] [place] [address] 32482- 6236 Jun, [facility] [id number] [place] [address] 11899- 2028 May, [facility] [id number] [place] [address] 90162- 6683 Apr, Benign essential tremor G25.0 [facility] [id number] [place] [address] 70093- 8816 Apr, [facility] [address] 91353- 3879 Apr, Benign paroxysmal vertigo of both ears H81.13 [facility] [id number] [place] [address] 74825- 4448 Mar, [place] [facility] [id number] [place] [address] 23177- 5034 Feb, Sciatica, right side M54.31 ; Essential hypertension I10 ; Iron deficiency anemia secondary to inadequate dietary iron intake D50.8 and Benign essential tremor G25.0 [facility] [id number] [place] [address] 90247- 4583 Feb, Benign essential tremor G25.0 and Essential hypertension I10 [facility] [id number] [place] [address] 30066- 8113 Feb, Benign essential tremor G25.0 and Essential hypertension I10 IMMUNIZATIONS No Known Immunizations SOCIAL HISTORY Never Assessed REASON FOR VISIT Refill PLAN OF CARE VITAL SIGNS MEDICATIONS Unknown Medications RESULTS No Results PROCEDURES No Known procedures INSTRUCTIONS MEDICATIONS ADMINISTERED No Known Medications MEDICAL (GENERAL) HISTORY Type Description Date Medical History asthma Medical History chronic obstructive pulmonary disease (COPD) Medical History HTN Medical History sciatic pain Surgical History section x3 Surgical History exploratory laparoscopy Surgical History tubal ligation
--- OUTSIDE RECORDS SUMMARY | 2018-07-28 15:40 | XMS REPORT ---
Author Author CHIDI RODRIGUEZ [facility] Address [address] [place] [address] Care Team Providers Care Office Machine Embossograph Operator Name Role Phone JENNIFERCHIDI Unavailable PROBLEMS Type Condition ICD9-CM Code NWU77-CT Code Onset Dates Condition Status SNOMED Code Problem Benign essential tremor G25.0 Active 017822026 Problem Sciatica, right side M54.31 Active 29551173 Problem Essential hypertension I10 Active 60603916 Problem PTSD (post-traumatic stress disorder) F43.10 Active 45052274 Problem Mild intermittent asthma J45.20 Active 836706307 Problem Moderate episode of recurrent major depressive disorder F33.1 Active 402800039 Problem Iron deficiency anemia secondary to inadequate dietary iron intake D50.8 Active 724720320 Problem Mild intermittent asthma with (acute) exacerbation J45.21 Active 854465790 Problem Unspecified mood [affective] disorder F39 Active 71776810 ALLERGIES Substance Reaction Event Type Date Status Percocet itching Drug Allergy Mar, Active ENCOUNTERS Encounter Location Date Diagnosis [place] [id number] [place] [address] 62194- 9057 16 May, 2018 [place] [id number] [place] [address] 11354- 9174 May, [facility] [id number] [place] [address] 29313- 6605 Apr, Unspecified mood [affective] disorder F39 and PTSD (post- traumatic stress disorder) F43.10 [facility] [address] [place] [address] 17124- 2576 Mar, Unspecified mood [affective] disorder F39 and PTSD (post- traumatic stress disorder) F43.10 [facility] [address] [place] [address] 50081- 5394 13 Mar, 2018 Unspecified mood [affective] disorder F39 and Mild intermittent asthma J45.20 [facility] [facility] [address] [place] [address] 71231- 0276 07 Mar, 2018 Unspecified mood [affective] disorder F39 and Posttraumatic stress disorder F43.10 [place] [facility] [address] [place] [address] 62778- 8674 Feb, Mild intermittent asthma with (acute) exacerbation J45.21 [facility] [facility] [address] [place] [address] 64352- 4568 Feb, Essential hypertension I10 and Moderate episode of recurrent major depressive disorder F33.1 [place] [address] 91954- 3982 Feb, Unspecified mood [affective] disorder F39 and Posttraumatic stress disorder F43.10 [place] [address] [place] [address] 25846- 8034 Feb, [facility] [facility] [address] [place] [address] 24359- 2844 Jan, Unspecified mood [affective] disorder F39 and Posttraumatic stress disorder F43.10 [place] [address] [place] [address] 67280- 3032 Jan, Sciatica, right side M54.31 ; Moderate episode of recurrent major depressive disorder F33.1 ; Non-seasonal allergic rhinitis, unspecified trigger J30.89 ; Mild intermittent asthma with (acute) exacerbation J45.21 and BMI 50.0-59.9, adult Z68.43 [place] [address] [place] [address] 80311- 4555 Jan, Unspecified mood [affective] disorder F39 [facility] [facility] [address] [place] [address] 13323- 9593 December, Unspecified mood [affective] disorder F39 [facility] [id number] [place] [address] 17257- 2561 December, [facility] [address] [place] [address] 11939- 8302 Nov, Essential hypertension I10 [facility] [id number] [place] [address] [id number] Nov, Dental examination Z01.20 and Dental caries K02.9 [facility] [id number] [place] [address] 89635- 5235 Nov, [facility] [id number] [place] [address] 90669- 1209 Nov, Moderate episode of recurrent major depressive disorder F33.1 ; Essential hypertension I10 and BMI 50.0-59.9, adult Z68.43 [facility] [id number] [place] [address] 16408- 4397 Oct, [facility] [address] 29014- 3067 Oct, [facility] [id number] [place] [address] 30041 -6140 Sep, Acute non-recurrent maxillary sinusitis J01.00 and BMI 50.0 -59.9, adult Z68.43 [facility] [id number] [place] [address] 68733 -5327 Sep, Acute non-recurrent maxillary sinusitis J01.00 and BMI 50.0 -59.9, adult Z68.43 [facility] [id number] [place] [address] 31166- 0968 Jun, Acute suppurative otitis media of right ear without spontaneous rupture of tympanic membrane, recurrence not specified H66.001 ; BMI 50.0-59.9, adult Z68.43 and BMI 60.0-69.9, adult Z68.44 [facility] [id number] [place] [address] 27347- 6788 Jun, [facility] [id number] [place] [address] 19884- 7686 May, [place] [address] [place] [address] 37021- 6577 Apr, Benign essential tremor G25.0 [place] [id number] [place] [address] 73353- 5507 Apr, [place] [id number] [place] [address] 65914- 2308 Apr, Benign paroxysmal vertigo of both ears H81.13 [place] [id number] [place] [address] 26167- 8468 Mar, [place] [id number] [place] [address] 62823- 5428 Feb, Sciatica, right side M54.31 ; Essential hypertension I10 ; Iron deficiency anemia secondary to inadequate dietary iron intake D50.8 and Benign essential tremor G25.0 [place] [id number] [place] [address] 68546- 2678 Feb, Benign essential tremor G25.0 and Essential hypertension I10 [place] [facility] [id number] [place] [address] 64762- 2735 Feb, Benign essential tremor G25.0 and Essential hypertension I10 IMMUNIZATIONS No Known Immunizations SOCIAL HISTORY Never Assessed REASON FOR VISIT intake PLAN OF CARE Activity Details Follow Up 4 Weeks Reason: Follow-up VITAL SIGNS Height 63 in 2018-04-02 Weight 279.5 lbs 2018-04-02 BMI 49.51 kg/m2 2018-04-02 MEDICATIONS Medication Instructions Dosage Frequency Start Date End Date Duration Status Gabapentin 300 MG Orally Three times a day 1 capsule 8h Feb, 30 day(s) Active Hydrochlorothiazide 25 MG Orally Once a day 1 tablet in the morning 24h Feb, 90 days Active Propranolol HCl 10 mg Orally Twice a day 1 tablet 12h 30 days Active Vitamin C 500 MG Orally Once a day 1 tablet 24h Active Ferrous Sulfate 325 (65 Fe) MG Orally Once a day 1 tablet 24h Feb, 30 day(s) Active Proventil HFA 108 (90 Base) MCG/ACT INHALE TWO PUFFS BY MOUTH EVERY 4 HOURS NEEDED 17 Active ProAir HFA 108 (90 Base) MCG/ACT Inhalation every 4 hrs 2 puffs as needed 4h 90 days Active Latuda 40 mg Orally Once a day 1 tablet with food 24h Mar, 30 day(s) Active Flonase 50 MCG/ACT Nasally Once a day 1 spray in each nostril 24h 30 day(s) Active Abilify 10 MG Orally Once a day for two weeks, then 1/2 tablet for two weeks, then stop. Tapering out. 1 tablet Nov, 28 days Active Cyclobenzaprine HCl 10 mg Orally 2 [...]
--- OUTSIDE RECORDS SUMMARY | 2018-07-28 15:40 | XMS REPORT ---
Author Author CHIDI RODRIGUEZ [facility] Address [address] [place] [address] Care Team Providers Care Bag Filler Machine Operator Name Role Phone JENNIFERCHIDI Unavailable PROBLEMS Type Condition ICD9-CM Code SFF56-GS Code Onset Dates Condition Status SNOMED Code Problem Benign essential tremor G25.0 Active 834884192 Problem Sciatica, right side M54.31 Active 32448773 Problem Essential hypertension I10 Active 12376393 Problem PTSD (post-traumatic stress disorder) F43.10 Active 68892043 Problem Mild intermittent asthma J45.20 Active 866462691 Problem Moderate episode of recurrent major depressive disorder F33.1 Active 335863593 Problem Iron deficiency anemia secondary to inadequate dietary iron intake D50.8 Active 183867503 Problem Mild intermittent asthma with (acute) exacerbation J45.21 Active 193754305 Problem Unspecified mood [affective] disorder F39 Active 78365185 ALLERGIES Substance Reaction Event Type Date Status Percocet itching Drug Allergy Apr, Active ENCOUNTERS Encounter Location Date Diagnosis [place] [id number] [place] [address] 91701- 5032 Jun, [facility] [id number] [place] [address] 46843- 9286 May, [facility] [id number] [place] [address] 16650- 1237 May, [facility] [id number] [place] [address] 98819- 4371 May, Unspecified mood [affective] disorder F39 [facility] [id number] [place] [address] 88125- 0233 Apr, Unspecified mood [affective] disorder F39 and PTSD (post- traumatic stress disorder) F43.10 [place] [address], [place] [address] Mar, Unspecified mood [affective] disorder F39 and PTSD (post- traumatic stress disorder) F43.10 [place] [id number] [place] [address] 90074- 0902 13 Mar, 2018 Unspecified mood [affective] disorder F39 and Mild intermittent asthma J45.20 [place] [id number] [place] [address] 52370- 5614 07 Mar, 2018 Unspecified mood [affective] disorder F39 and Posttraumatic stress disorder F43.10 [place] [id number] [place] [address] 99109- 8927 23 Feb, 2018 Mild intermittent asthma with (acute) exacerbation J45.21 [place] [id number] [place] [address] 87960- 2721 Feb, Essential hypertension I10 and Moderate episode of recurrent major depressive disorder F33.1 [place] [id number] [place] [address] 09597- 8667 Feb, Unspecified mood [affective] disorder F39 and Posttraumatic stress disorder F43.10 [place] [id number] [place] [address] 19502- 1190 Feb, [place] [id number] [place] [address] 92100- 1663 Jan, Unspecified mood [affective] disorder F39 and Posttraumatic stress disorder F43.10 [place] [id number] [place] [address] 03283- 8430 18 Jan, 2018 Sciatica, right side M54.31 ; Moderate episode of recurrent major depressive disorder F33.1 ; Non-seasonal allergic rhinitis, unspecified trigger J30.89 ; Mild intermittent asthma with (acute) exacerbation J45.21 and BMI 50.0-59.9, adult Z68.43 [place] [address] [place] [address] 16427- 1560 05 Jan, 2018 Unspecified mood [affective] disorder F39 [facility] [id number] [place] [address] 45008- 4268 December, Unspecified mood [affective] disorder F39 [facility] [id number] [place] [address] 09636- 4059 December, [facility] [id number] [place] [address] 41594- 6847 Nov, Essential hypertension I10 [facility] [id number] [place] [address] [id number] Nov, Dental examination Z01.20 and Dental caries K02.9 [facility] [address] 58009- 4697 Nov, [facility] [id number] [place] [address] 47735- 7934 Nov, Moderate episode of recurrent major depressive disorder F33.1 ; Essential hypertension I10 and BMI 50.0-59.9, adult Z68.43 [facility] [id number] [place] [address] 45543- 4870 Oct, [facility] [id number] [place] [address] 96757- 9496 Oct, [facility] [id number] [place] [address] 49404 -8365 Sep, Acute non-recurrent maxillary sinusitis J01.00 and BMI 50.0 -59.9, adult Z68.43 [facility] [address] [place] [address] 43528 -7575 Sep, Acute non-recurrent maxillary sinusitis J01.00 and BMI 50.0 -59.9, adult Z68.43 [facility] [address] [place] [address] 22703- 9496 Jun, Acute suppurative otitis media of right ear without spontaneous rupture of tympanic membrane, recurrence not specified H66.001 ; BMI 50.0-59.9, adult Z68.43 and BMI 60.0-69.9, adult Z68.44 [place] [address] [place] [address] 77183- 9476 Jun, [place] [id number] [place] [address] 54734- 7637 May, [place] [id number] [place] [address] 34582- 4841 Apr, Benign essential tremor G25.0 [place] [id number] [place] [address] 14258- 3765 Apr, [place] [address] 59842- 1807 Apr, Benign paroxysmal vertigo of both ears H81.13 [place] [id number] [place] [address] 61633- 3488 Mar, [place] [id number] [place] [address] 49386- 1406 Feb, Sciatica, right side M54.31 ; Essential hypertension I10 ; Iron deficiency anemia secondary to inadequate dietary iron intake D50.8 and Benign essential tremor G25.0 [place] [address] [place] [address] 00167- 2959 Feb, Benign essential tremor G25.0 and Essential hypertension I10 [place] [id number] [place] [address] 35873- 7638 Feb, Benign essential tremor G25.0 and Essential hypertension I10 IMMUNIZATIONS No Known Immunizations SOCIAL HISTORY Never Assessed REASON FOR VISIT LIANA f/u- AB/MA PLAN OF CARE Activity Details Follow Up 3 Weeks Reason:LIANA f/u VITAL SIGNS Height 63 in 2018-04-30 Weight 280.1 lbs 2018-04-30 Heart Rate 90 bpm 2018-04-30 Respiratory Rate 20 2018-04-30 BMI 49.61 kg/m2 2018-04-30 Blood pressure systolic 150 mmHg 2018-04-30 Blood pressure diastolic 90 mmHg 2018-04-30 MEDICATIONS Medication Instructions Dosage Frequency Start Date End Date Duration Status Proventil HFA 108 (90 Base) MCG/ACT INHALE TWO PUFFS BY MOUTH EVERY 4 HOURS NEEDED 17 Not-Taking Cyclobenzaprine HCl 10 mg Orally 2 times a day 1 tablet as needed 12h 18 Jan, 2018 Not-Taking Hydrochlorothiazide 25 MG Orally Once a day 1 tablet in the morning 24h Feb, 90 days Active Pristiq 50 mg Orally Once a day 1 tablet 24h Apr, 30 day(s) Active Propranolol HCl 10 mg Orally Twice a day 1 tablet 12h 30 days Active Gabapentin 300 MG Orally Three times a day 1 capsule 8h Feb, 30 day(s) Active Vitamin C 500 MG Orally Once a day 1 tablet 24h Active Ferrous Sulfate 325 (65 Fe) MG Orally Once a day 1 tablet 24h Feb, 30 day(s) Active Flonase 50 MCG/ACT Nasally Once a day 1 spray in each nostril 24h 30 day(s) Active ProAir HFA 108 (90 Base) MCG/ACT Inhalation every 4 hrs 2 puffs as needed 4h 90 days Active Latuda 40 mg Orally Once a day 1 tablet with food 24h Mar, Active RESULTS No Results PROCEDURES No Known procedures INSTRUCTIONS MEDICATIONS ADMINISTERED No Known Medications MEDICAL (GENERAL) HISTORY Type Description Date Medical History asthma Medical History chronic obstructive pulmonary disease (COPD) Medical History HTN Medical History sciatic pain Surgical History section x3 Surgical History exploratory laparoscopy Surgical History tubal ligation
--- OUTSIDE RECORDS SUMMARY | 2018-07-28 15:40 | XMS REPORT ---
Author Author BREANNE AIKEN Organization [facility] Address [address] [place] [address] Care Team Providers Care Assistant Head Cashier Name Role Phone BREANNE AIKEN Unavailable PROBLEMS Type Condition ICD9-CM Code QKD09-JL Code Onset Dates Condition Status SNOMED Code Problem Benign essential tremor G25.0 Active 513471239 Problem Sciatica, right side M54.31 Active 47324719 Problem Essential hypertension I10 Active 46048930 Problem PTSD (post-traumatic stress disorder) F43.10 Active 47367368 Problem Mild intermittent asthma J45.20 Active 029919344 Problem Moderate episode of recurrent major depressive disorder F33.1 Active 035077032 Problem Iron deficiency anemia secondary to inadequate dietary iron intake D50.8 Active 144041386 Problem Mild intermittent asthma with (acute) exacerbation J45.21 Active 410094229 Problem Unspecified mood [affective] disorder F39 Active 91613823 ALLERGIES Substance Reaction Event Type Date Status Percocet itching Drug Allergy Jun, Active ENCOUNTERS Encounter Location Date Diagnosis [place] [id number] [place] [address] 93612- 0229 Jul, [place] [id number] [place] [address] 05186- 2216 Jul, [place] [id number] [place] [address] 32195- 4154 Jun, Unspecified mood [affective] disorder F39 ; PTSD (post- traumatic stress disorder) F43.10 and Other terminal clerk (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) drug therapy Z79.899 [place] [id number] [place] [address] 29170- 8780 Jun, Acute nasopharyngitis J00 and BMI 45.0-49.9, adult Z68.42 [place] [id number] [address]- [address]01 Jun, Unspecified mood [affective] disorder F39 and Posttraumatic stress disorder F43.10 [facility] [id number] [place] [address] 56732- 0126 Jun, [facility] [id number] [place] [address] 68422- 9804 May, Unspecified mood [affective] disorder F39 and PTSD (post- traumatic stress disorder) F43.10 [facility] [id number] [place] [address] 42305- 0952 May, Unspecified mood [affective] disorder F39 and Posttraumatic stress disorder F43.10 [place] [id number] [place] [address] 51825- 1673 May, Unspecified mood [affective] disorder F39 [place] [id number] [place] [address] 60353- 7543 Apr, Unspecified mood [affective] disorder F39 and PTSD (post- traumatic stress disorder) F43.10 [place] [id number] [place] [address] 91290- 6595 Mar, Unspecified mood [affective] disorder F39 and PTSD (post- traumatic stress disorder) F43.10 [place] [address] [address]- 5427 Mar, Unspecified mood [affective] disorder F39 and Mild intermittent asthma J45.20 [facility] [address] [place] [address] 90770- 1103 Mar, Unspecified mood [affective] disorder F39 and Posttraumatic stress disorder F43.10 [place] [id number] [place] [address] 05458- 5609 Feb, Mild intermittent asthma with (acute) exacerbation J45.21 [facility] [address] [place] [address] 36408- 9418 Feb, Essential hypertension I10 and Moderate episode of recurrent major depressive disorder F33.1 [facility] [address] [address]- 5776 Feb, Unspecified mood [affective] disorder F39 and Posttraumatic stress disorder F43.10 [facility] [address] [address]- 6787 Feb, [facility] [id number] [place] [address] 47646- 0847 Jan, Unspecified mood [affective] disorder F39 and Posttraumatic stress disorder F43.10 [place] [address] [place] [address] 40382- 9690 Jan, Sciatica, right side M54.31 ; Moderate episode of recurrent major depressive disorder F33.1 ; Non-seasonal allergic rhinitis, unspecified trigger J30.89 ; Mild intermittent asthma with (acute) exacerbation J45.21 and BMI 50.0-59.9, adult Z68.43 [place] [address] [place] [address] 10925- 0322 Jan, Unspecified mood [affective] disorder F39 [place] [address] [place] [address] 28968- 9038 December, Unspecified mood [affective] disorder F39 [facility] [address], [place] [address]- 5990 December, [facility] [address] [place] [address] 22711- 4885 Nov, Essential hypertension I10 [facility] [address] [id number] Nov, Dental examination Z01.20 and Dental caries K02.9 [facility] [address], [place] [address]- 8774 Nov, [facility] [address] [address]- 6128 Nov, Moderate episode of recurrent major depressive disorder F33.1 ; Essential hypertension I10 and BMI 50.0-59.9, adult Z68.43 [place] [id number] [place] [address] 94787- 0210 Oct, [place] [address] 24517- 8119 Oct, [facility] [address] 06816 -4476 Sep, Acute non-recurrent maxillary sinusitis J01.00 and BMI 50.0 -59.9, adult Z68.43 [facility] [address] 82880 -8701 Sep, Acute non-recurrent maxillary sinusitis J01.00 and BMI 50.0 -59.9, adult Z68.43 [place] [address] 50024- 7467 Jun, Acute suppurative otitis media of right ear without spontaneous rupture of tympanic membrane, recurrence not specified H66.001 ; BMI 50.0-59.9, adult Z68.43 and BMI 60.0-69.9, adult Z68.44 [place] [id number] [place] [address] 39605- 2867 Jun, [place] [id number] [place] [address] 21525- 1452 May, [place] [address] 00063- 8643 Apr, Benign essential tremor G25.0 [place] [address] 34377- 9480 Apr, [place] [address] 68635- 7001 Apr, Benign paroxysmal vertigo of both ears H81.13 [place] [address] 65243- 3113 Mar, [facility] [address] [facility] [id number] [address] Feb, Sciatica, right side M54.31 ; Essential hypertension I10 ; Iron deficiency anemia secondary to inadequate dietary iron intake D50.8 and Benign essential tremor G25.0 [place] [id number] [address]- 5847 Feb, Benign essential tremor G25.0 and Essential hypertension I10 [place] [address] [facility] [id number] [address]- 4779 Feb, Benign essential tremor G25.0 and Essential hypertension I10 IMMUNIZATIONS No Known Immunizations SOCIAL HISTORY Never Assessed REASON FOR VISIT cough/congestion x4 days kPage ma , cough with no production KPage ma , headaches/ facial pressure/ itching on face and with eyes KPage mA , severe sneezing kPage ma PLAN OF CARE Activity Details Follow Up prn Reason: VITAL SIGNS Height 63 in 2018-06-17 Weight 269 lbs 2018-06-17 Temperature 98.1 degrees Fahrenheit 2018-06-17 Heart Rate 98 bpm 2018-06-17 Respiratory Rate 20 2018-06-17 BMI 47.65 kg/m2 2018-06-17 Blood pressure systolic 144 mmHg 2018-06-17 Blood pressure diastolic 82 mmHg 2018-06-17 MEDICATIONS Medication Instructions Dosage Frequency Start Date End Date Duration Status Ferrous Sulfate 325 (65 Fe) MG Orally Once a day 1 tablet 24h Feb, 30 day(s) Active Vitamin C 500 MG Orally Once a day 1 tablet 24h Active Gabapentin 300 MG Orally Three times a day 1 capsule 8h Feb, 30 day(s) Active SudoGest 60 mg Orally every 6 hrs 1 tablet as needed 6h Jun, 5 days Active Proventil HFA 108 (90 Base) MCG/ACT INHALE TWO PUFFS BY MOUTH EVERY 4 HOURS NEEDED 17 Not-Taking ProAir HFA 108 (90 Base) MCG/ACT Inhalation every 4 hrs 2 puffs as needed 4h 90 days Active Hydrochlorothiazide 25 MG Orally Once a day 1 tablet in the morning 24h Feb, 90 days Active Cyclobenzaprine HCl 10 mg Orally 2 times a day 1 tablet as needed 12h 18 Jan, 2018 Not-Taking Propranolol HCl 10 mg Orally Twice a day 1 tablet 12h 30 Active Flonase 50 MCG/ACT Nasally Once a day 1 spray in each nostril 24h 30 day(s) Active Latuda 40 mg Orally Once a day 1 tablet with food 24h Mar, Active Pristiq 50 mg Orally Once a day 1 tablet 24h 30 May, 2018 30 day(s) Active RESULTS No Results PROCEDURES No Known procedures INSTRUCTIONS MEDICATIONS ADMINISTERED No Known Medications MEDICAL (GENERAL) HISTORY Type Description Date Medical History asthma Medical History chronic obstructive pulmonary disease (COPD) Medical History HTN Medical History sciatic pain Surgical History section x3 Surgical History exploratory laparoscopy Surgical History tubal ligation
--- OUTSIDE RECORDS SUMMARY | 2018-07-28 15:41 | XMS REPORT ---
Author Author JERRICA CAIN Organization [facility] Address [address] [place] [address] Care Team Providers Care Institutional Custodian Name Role Phone JERRICA CAIN Unavailable PROBLEMS Type Condition ICD9-CM Code [id number]-[id number] Code Onset Dates Condition Status SNOMED Code Problem Benign essential tremor G25.0 Active 742334423 Problem Sciatica, right side M54.31 Active 75386432 Problem Essential hypertension I10 Active 53437805 Problem PTSD (post-traumatic stress disorder) F43.10 Active 88580484 Problem Mild intermittent asthma J45.20 Active 282779990 Problem Moderate episode of recurrent major depressive disorder F33.1 Active 607178267 Problem Iron deficiency anemia secondary to inadequate dietary iron intake D50.8 Active 629241808 Problem Mild intermittent asthma with (acute) exacerbation J45.21 Active 424154465 Problem Unspecified mood [affective] disorder F39 Active 11068342 ALLERGIES No Information ENCOUNTERS Encounter Location Date Diagnosis [facility] [address] [place] [address] 07534- 3274 25 Apr, 2018 [facility] [id number] [place] [address] 18915- 8939 Apr, [facility] [id number] [place] [address] 80116- 4599 28 Mar, 2018 Unspecified mood [affective] disorder F39 and PTSD (post- traumatic stress disorder) F43.10 [facility] [id number] [place] [address] 11986- 6458 13 Mar, 2018 Unspecified mood [affective] disorder F39 and Mild intermittent asthma J45.20 [facility] [address] [place] [address] 70125- 2049 07 Mar, 2018 Unspecified mood [affective] disorder F39 and Posttraumatic stress disorder F43.10 [facility] [address] [place] [address] 33720- 9832 Feb, Mild intermittent asthma with (acute) exacerbation J45.21 [facility] [id number] [place] [address] 11872- 9854 Feb, Essential hypertension I10 and Moderate episode of recurrent major depressive disorder F33.1 [place] [id number] [place] [address] 40558- 0521 Feb, Unspecified mood [affective] disorder F39 and Posttraumatic stress disorder F43.10 [place] [id number] [place] [address] 36699- 9652 Feb, [place] [id number] [place] [address] 82447- 1266 Jan, Unspecified mood [affective] disorder F39 and Posttraumatic stress disorder F43.10 [place] [id number] [place] [address] 76506- 9716 Jan, Sciatica, right side M54.31 ; Moderate episode of recurrent major depressive disorder F33.1 ; Non-seasonal allergic rhinitis, unspecified trigger J30.89 ; Mild intermittent asthma with (acute) exacerbation J45.21 and BMI 50.0-59.9, adult Z68.43 [place] [address] [place] [address] 61568- 8977 Jan, Unspecified mood [affective] disorder F39 [facility] [address] [place] [address] 71655- 0220 December, Unspecified mood [affective] disorder F39 [place] [id number] [place] [address] 69564- 6698 December, [facility] [id number] [place] [address] 88572- 7371 Nov, Essential hypertension I10 [facility] [address] [place] [address] [id number] 26 Apr, 2018 Dental examination Z01.20 and Dental caries K02.9 [facility] [id number] [place] [address] 38998- 9961 Nov, [facility] [id number] [place] [address] 79460- 4011 Nov, Moderate episode of recurrent major depressive disorder F33.1 ; Essential hypertension I10 and BMI 50.0-59.9, adult Z68.43 [place] [address] 57790- 0128 Oct, [facility] [address] 19708- 6477 Oct, [facility] [place] [address] 44705 -7393 Sep, Acute non-recurrent maxillary sinusitis J01.00 and BMI 50.0 -59.9, adult Z68.43 [facility] [id number] [place] [address] 24769 -7078 Sep, Acute non-recurrent maxillary sinusitis J01.00 and BMI 50.0 -59.9, adult Z68.43 [place] [id number] [place] [address] 51636- 1259 Jun, Acute suppurative otitis media of right ear without spontaneous rupture of tympanic membrane, recurrence not specified H66.001 ; BMI 50.0-59.9, adult Z68.43 and BMI 60.0-69.9, adult Z68.44 [place] [id number] [place] [address] 97129- 5009 Jun, [place] [address] 70233- 6183 May, [place] [address] 20949- 9187 Apr, Benign essential tremor G25.0 [place] [address] 49353- 5002 Apr, [facility] [id number] [address] 5879 Apr, Benign paroxysmal vertigo of both ears H81.13 [place] [address] [address] 1696 Mar, [place] [address] [address] 8494 Feb, Sciatica, right side M54.31 ; Essential hypertension I10 ; Iron deficiency anemia secondary to inadequate dietary iron intake D50.8 and Benign essential tremor G25.0 [place] [address] [address]- 4118 Feb, Benign essential tremor G25.0 and Essential hypertension I10 [place] [id number] [address]- 3341 Feb, Benign essential tremor G25.0 and Essential hypertension I10 IMMUNIZATIONS No Known Immunizations SOCIAL HISTORY Never Assessed REASON FOR VISIT f/u PLAN OF CARE Activity Details Follow Up Next available Reason:mood VITAL SIGNS MEDICATIONS Unknown Medications RESULTS No Results PROCEDURES Procedure Date Ordered Result Body Site Psychotherapy, patient &/family, 30 minutes, established patient Mar 12, 2018 INSTRUCTIONS MEDICATIONS ADMINISTERED No Known Medications MEDICAL (GENERAL) HISTORY Type Description Date Medical History asthma Medical History chronic obstructive pulmonary disease (COPD) Medical History HTN Medical History sciatic pain Surgical History section x3 Surgical History exploratory laparoscopy Surgical History tubal ligation
--- OUTSIDE RECORDS SUMMARY | 2018-07-28 15:41 | XMS REPORT ---
Author Author ROBI GONZALEZ Organization [facility] Address [address] [place] [address] Care Team Providers Care Senior Net Web Developer Name Role Phone ROBI GONZALEZ Unavailable PROBLEMS Type Condition ICD9-CM Code PFH03-PV Code Onset Dates Condition Status SNOMED Code Problem Benign essential tremor G25.0 Active 351826771 Problem Sciatica, right side M54.31 Active 67472616 Problem Essential hypertension I10 Active 31635283 Problem PTSD (post-traumatic stress disorder) F43.10 Active 06304232 Problem Mild intermittent asthma J45.20 Active 391587098 Problem Moderate episode of recurrent major depressive disorder F33.1 Active 849230017 Problem Iron deficiency anemia secondary to inadequate dietary iron intake D50.8 Active 224318188 Problem Mild intermittent asthma with (acute) exacerbation J45.21 Active 767635368 Problem Unspecified mood [affective] disorder F39 Active 11281098 ALLERGIES No Information ENCOUNTERS Encounter Location Date Diagnosis [facility] [address] [place] [address] 21089- 1118 25 Apr, 2018 [facility] [id number] [place] [address] 55970- 8296 Apr, [facility] [id number] [place] [address] 70576- 4799 28 Mar, 2018 Unspecified mood [affective] disorder F39 and PTSD (post- traumatic stress disorder) F43.10 [facility] [id number] [place] [address] 98162- 8270 13 Mar, 2018 Unspecified mood [affective] disorder F39 and Mild intermittent asthma J45.20 [facility] [address] [address]- 6897 07 Mar, 2018 Unspecified mood [affective] disorder F39 and Posttraumatic stress disorder F43.10 [facility] [address] [place] [address] 81323- 7266 Feb, Mild intermittent asthma with (acute) exacerbation J45.21 [place] [id number] [place] [address] 00097- 2257 Feb, Essential hypertension I10 and Moderate episode of recurrent major depressive disorder F33.1 [place] [id number] [place] [address] 01279- 1895 Feb, Unspecified mood [affective] disorder F39 and Posttraumatic stress disorder F43.10 [place] [id number] [place] [address] 68966- 9987 Feb, [place] [id number] [place] [address] 16756- 9376 Jan, Unspecified mood [affective] disorder F39 and Posttraumatic stress disorder F43.10 [place] [id number] [place] [address] 97673- 7475 Jan, Sciatica, right side M54.31 ; Moderate episode of recurrent major depressive disorder F33.1 ; Non-seasonal allergic rhinitis, unspecified trigger J30.89 ; Mild intermittent asthma with (acute) exacerbation J45.21 and BMI 50.0-59.9, adult Z68.43 [place] [id number] [place] [address] 14225- 4366 Jan, Unspecified mood [affective] disorder F39 [place] [address] [place] [address] 53451- 5456 December, Unspecified mood [affective] disorder F39 [place] [id number] [place] [address] 51480- 2565 December, [facility] [id number] [place] [address] 87158- 0068 Nov, Essential hypertension I10 [facility] [address] [place] [address] [id number] 26 Apr, 2018 Dental examination Z01.20 and Dental caries K02.9 [facility] [id number] [place] [address] 87349- 1687 Nov, [facility] [id number] [place] [address] 22556- 1337 Nov, Moderate episode of recurrent major depressive disorder F33.1 ; Essential hypertension I10 and BMI 50.0-59.9, adult Z68.43 [place] [id number] [place] [address] 12902- 3984 Oct, [place] [id number] [place] [address] 62332- 2703 Oct, [facility] [id number] [place] [address] 38067 -2487 Sep, Acute non-recurrent maxillary sinusitis J01.00 and BMI 50.0 -59.9, adult Z68.43 [facility] [id number] [place] [address] 99223 -0908 Sep, Acute non-recurrent maxillary sinusitis J01.00 and BMI 50.0 -59.9, adult Z68.43 [place] [id number] [place] [address] 79548- 3755 Jun, Acute suppurative otitis media of right ear without spontaneous rupture of tympanic membrane, recurrence not specified H66.001 ; BMI 50.0-59.9, adult Z68.43 and BMI 60.0-69.9, adult Z68.44 [place] [id number] [place] [address] 92415- 8225 Jun, [place] [address] 15852- 0789 May, [place] [id number] [place] [address] 09887- 8145 Apr, Benign essential tremor G25.0 [place] [address] 99499- 3540 Apr, [place] [address] [place] [address] [address]- 1355 Apr, Benign paroxysmal vertigo of both ears H81.13 [place] [address], [place] [address]- 7768 Mar, [place] [address], [place] [address]- 0819 Feb, Sciatica, right side M54.31 ; Essential hypertension I10 ; Iron deficiency anemia secondary to inadequate dietary iron intake D50.8 and Benign essential tremor G25.0 [place] [address], [place] [address]- 8377 Feb, Benign essential tremor G25.0 and Essential hypertension I10 [place] [address] [address]- 3784 Feb, Benign essential tremor G25.0 and Essential hypertension I10 IMMUNIZATIONS No Known Immunizations SOCIAL HISTORY Never 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 PLAN OF CARE Activity Details Follow Up prn Reason: VITAL SIGNS MEDICATIONS Unknown Medications RESULTS No Results PROCEDURES Procedure Date Ordered Result Body Site MYNOR/RAVEN DEMO February 25, 2018 SPIROMETRY February 25, 2018 SPRIOMETRY CHALLENGE February 25, 2018 INSTRUCTIONS MEDICATIONS ADMINISTERED No Known Medications MEDICAL (GENERAL) HISTORY Type Description Date Medical History asthma Medical History chronic obstructive pulmonary disease (COPD) Medical History HTN Medical History sciatic pain Surgical History section x3 Surgical History exploratory laparoscopy Surgical History tubal ligation
--- OUTSIDE RECORDS SUMMARY | 2018-07-28 15:41 | XMS REPORT ---
Author Author JERRICA CAIN Organization [facility] Address [address] [place] [address] Care Team Providers Care Assistant Film Editor Name Role Phone JERRICA CAIN Unavailable PROBLEMS Type Condition ICD9-CM Code BCW54-SY Code Onset Dates Condition Status SNOMED Code Problem Benign essential tremor G25.0 Active 012422525 Problem Sciatica, right side M54.31 Active 84587259 Problem Essential hypertension I10 Active 47348698 Problem PTSD (post-traumatic stress disorder) F43.10 Active 43289706 Problem Mild intermittent asthma J45.20 Active 987873796 Problem Moderate episode of recurrent major depressive disorder F33.1 Active 731641256 Problem Iron deficiency anemia secondary to inadequate dietary iron intake D50.8 Active 200759280 Problem Mild intermittent asthma with (acute) exacerbation J45.21 Active 506529258 Problem Unspecified mood [affective] disorder F39 Active 33739728 ALLERGIES No Information ENCOUNTERS Encounter Location Date Diagnosis [facility] [address] [place] [address] 30346- 5360 25 Apr, 2018 [facility] [id number] [place] [address] 03515- 6956 Apr, [facility] [id number] [place] [address] 84058- 6250 28 Mar, 2018 Unspecified mood [affective] disorder F39 and PTSD (post- traumatic stress disorder) F43.10 [facility] [id number] [place] [address] 22940- 7500 13 Mar, 2018 Unspecified mood [affective] disorder F39 and Mild intermittent asthma J45.20 [facility] [address] [place] [address] 39869- 7408 07 Mar, 2018 Unspecified mood [affective] disorder F39 and Posttraumatic stress disorder F43.10 [facility] [address] [place] [address] 72666- 0175 Feb, Mild intermittent asthma with (acute) exacerbation J45.21 [facility] [id number] [place] [address] 10892- 3895 Feb, Essential hypertension I10 and Moderate episode of recurrent major depressive disorder F33.1 [place] [id number] [place] [address] 10616- 9089 Feb, Unspecified mood [affective] disorder F39 and Posttraumatic stress disorder F43.10 [place] [id number] [place] [address] 74256- 3155 Feb, [place] [id number] [place] [address] 96540- 4973 Jan, Unspecified mood [affective] disorder F39 and Posttraumatic stress disorder F43.10 [place] [id number] [place] [address] 50283- 3259 Jan, Sciatica, right side M54.31 ; Moderate episode of recurrent major depressive disorder F33.1 ; Non-seasonal allergic rhinitis, unspecified trigger J30.89 ; Mild intermittent asthma with (acute) exacerbation J45.21 and BMI 50.0-59.9, adult Z68.43 [place] [address] [place] [address] 15080- 7627 Jan, Unspecified mood [affective] disorder F39 [facility] [address] [place] [address] 75539- 0877 December, Unspecified mood [affective] disorder F39 [place] [id number] [place] [address] 03681- 5084 December, [facility] [id number] [place] [address] 76207- 3008 Nov, Essential hypertension I10 [facility] [address] [place] [address] [id number] 26 Apr, 2018 Dental examination Z01.20 and Dental caries K02.9 [facility] [id number] [place] [address] 29214- 5231 Nov, [facility] [id number] [place] [address] 07533- 6840 Nov, Moderate episode of recurrent major depressive disorder F33.1 ; Essential hypertension I10 and BMI 50.0-59.9, adult Z68.43 [place] [address] 28136- 3448 Oct, [facility] [address] 93280- 0043 Oct, [facility] [place] [address] 83655 -3137 Sep, Acute non-recurrent maxillary sinusitis J01.00 and BMI 50.0 -59.9, adult Z68.43 [facility] [id number] [place] [address] 70535 -0364 Sep, Acute non-recurrent maxillary sinusitis J01.00 and BMI 50.0 -59.9, adult Z68.43 [place] [id number] [place] [address] 24252- 7233 Jun, Acute suppurative otitis media of right ear without spontaneous rupture of tympanic membrane, recurrence not specified H66.001 ; BMI 50.0-59.9, adult Z68.43 and BMI 60.0-69.9, adult Z68.44 [place] [id number] [place] [address] 22195- 0641 Jun, [place] [address] 77808- 2968 May, [place] [address] 69967- 2517 Apr, Benign essential tremor G25.0 [place] [address] 98603- 4099 Apr, [facility] [address] [id number] [address]- 0288 Apr, Benign paroxysmal vertigo of both ears H81.13 [facility] [address] [address]- 1767 Mar, [place] [address] [address]- 7421 Feb, Sciatica, right side M54.31 ; Essential hypertension I10 ; Iron deficiency anemia secondary to inadequate dietary iron intake D50.8 and Benign essential tremor G25.0 [place] [address] [address]- 3575 Feb, Benign essential tremor G25.0 and Essential hypertension I10 [place] [id number] [address]- 5430 Feb, Benign essential tremor G25.0 and Essential hypertension I10 IMMUNIZATIONS No Known Immunizations SOCIAL HISTORY Never Assessed REASON FOR VISIT Depression. PLAN OF CARE Activity Details Follow Up 2 Weeks Reason:depression & PTSD VITAL SIGNS MEDICATIONS Unknown Medications RESULTS No Results PROCEDURES Procedure Date Ordered Result Body Site Psychotherapy, patient &/family, 30 minutes, established patient February 21, 2018 INSTRUCTIONS MEDICATIONS ADMINISTERED No Known Medications MEDICAL (GENERAL) HISTORY Type Description Date Medical History asthma Medical History chronic obstructive pulmonary disease (COPD) Medical History HTN Medical History sciatic pain Surgical History section x3 Surgical History exploratory laparoscopy Surgical History tubal ligation
--- OUTSIDE RECORDS SUMMARY | 2018-07-28 15:41 | XMS REPORT ---
Author Author ROBI GONZALEZ Organization [facility] Address [address] [place] [address] Care Team Providers Care Bpm Solution Architect Name Role Phone ROBI GONZALEZ Unavailable PROBLEMS Type Condition ICD9-CM Code [id number] Code Onset Dates Condition Status SNOMED Code Problem Benign essential tremor G25.0 Active 692227930 Problem Sciatica, right side M54.31 Active 06448308 Problem Essential hypertension I10 Active 24008859 Problem PTSD (post-traumatic stress disorder) F43.10 Active 90554689 Problem Mild intermittent asthma J45.20 Active 137989112 Problem Moderate episode of recurrent major depressive disorder F33.1 Active 233205122 Problem Iron deficiency anemia secondary to inadequate dietary iron intake D50.8 Active 006433786 Problem Mild intermittent asthma with (acute) exacerbation J45.21 Active 757540655 Problem Unspecified mood [affective] disorder F39 Active 40362495 ALLERGIES No Information ENCOUNTERS Encounter Location Date Diagnosis [facility] [place] [address] [place] [address] 62687- 7730 25 Apr, 2018 [facility] [id number] [place] [address] 27212- 1008 Apr, [facility] [place] [id number] [place] [address] 65756- 2492 28 Mar, 2018 Unspecified mood [affective] disorder F39 and PTSD (post- traumatic stress disorder) F43.10 [facility] [place] [id number] [place] [address] 74128- 1637 13 Mar, 2018 Unspecified mood [affective] disorder F39 and Mild intermittent asthma J45.20 [facility] [place] [address] [address] 66[address] 07 Mar, 2018 Unspecified mood [affective] disorder F39 and Posttraumatic stress disorder F43.10 [facility] [place] [address] [place] [address] 20739- 4854 Feb, Mild intermittent asthma with (acute) exacerbation J45.21 [place] [id number] [place] [address] 58673- 9027 Feb, Essential hypertension I10 and Moderate episode of recurrent major depressive disorder F33.1 [place] [id number] [place] [address] 63753- 2856 Feb, Unspecified mood [affective] disorder F39 and Posttraumatic stress disorder F43.10 [place] [id number] [place] [address] 71046- 7132 Feb, [place] [id number] [place] [address] 11345- 8667 Jan, Unspecified mood [affective] disorder F39 and Posttraumatic stress disorder F43.10 [place] [place] [id number] [place] [address] 59545- 8741 Jan, Sciatica, right side M54.31 ; Moderate episode of recurrent major depressive disorder F33.1 ; Non-seasonal allergic rhinitis, unspecified trigger J30.89 ; Mild intermittent asthma with (acute) exacerbation J45.21 and BMI 50.0-59.9, adult Z68.43 [place] [place] [id number] [place] [address] 07332- 2181 Jan, Unspecified mood [affective] disorder F39 [place] [address] [place] [address] 79696- 2668 December, Unspecified mood [affective] disorder F39 [place] [id number] [place] [address] 83734- 6992 December, [facility] [place] [id number] [place] [address] 58479- 6299 Nov, Essential hypertension I10 [facility] [address] [place] [address] [id number] 26 Apr, 2018 Dental examination Z01.20 and Dental caries K02.9 [facility] [place] [id number] [place] [address] 21025- 3978 Nov, [facility] [id number] [place] [address] 85629- 9886 Nov, Moderate episode of recurrent major depressive disorder F33.1 ; Essential hypertension I10 and BMI 50.0-59.9, adult Z68.43 [place] [id number] [place] [address] 03026- 2119 Oct, [place] [id number] [place] [address] 03621- 1272 Oct, [facility] [id number] [place] [address] 86215 -7946 Sep, Acute non-recurrent maxillary sinusitis J01.00 and BMI 50.0 -59.9, adult Z68.43 [facility] [id number] [place] [address] 10198 -2136 Sep, Acute non-recurrent maxillary sinusitis J01.00 and BMI 50.0 -59.9, adult Z68.43 [place] [id number] [place] [address] 60102- 1589 Jun, Acute suppurative otitis media of right ear without spontaneous rupture of tympanic membrane, recurrence not specified H66.001 ; BMI 50.0-59.9, adult Z68.43 and BMI 60.0-69.9, adult Z68.44 [place] [id number] [place] [address] 30375- 7175 Jun, [place] [address] 45625- 5348 May, [facility] [place] [id number] [place] [address] 52217- 7727 Apr, Benign essential tremor G25.0 [place] [address] 86808- 7725 Apr, [place] [id number] [address] 9175 Apr, Benign paroxysmal vertigo of both ears H81.13 [place] [address] [address]- 7807 Mar, [place] [address] [address]- 1583 Feb, Sciatica, right side M54.31 ; Essential hypertension I10 ; Iron deficiency anemia secondary to inadequate dietary iron intake D50.8 and Benign essential tremor G25.0 [facility] [id number] [place] [address] 63966- 9688 Feb, Benign essential tremor G25.0 and Essential hypertension I10 [place] [address] [address]- 7865 Feb, Benign essential tremor G25.0 and Essential hypertension I10 IMMUNIZATIONS No Known Immunizations SOCIAL HISTORY Never Assessed REASON FOR VISIT Repository Medication PLAN OF CARE VITAL SIGNS MEDICATIONS Medication Instructions Dosage Frequency Start Date End Date Duration Status Propranolol HCl 10 mg Orally Twice a day 1 tablet 12h 30 days Active RESULTS No Results PROCEDURES No Known procedures INSTRUCTIONS MEDICATIONS ADMINISTERED No Known Medications MEDICAL (GENERAL) HISTORY Type Description Date Medical History asthma Medical History chronic obstructive pulmonary disease (COPD) Medical History HTN Medical History sciatic pain Surgical History section x3 Surgical History exploratory laparoscopy Surgical History tubal ligation
--- OUTSIDE RECORDS SUMMARY | 2018-07-28 15:41 | XMS REPORT ---
Author Author ROBI GONZALEZ Organization [facility] Address [address] [place] [address] Care Team Providers Care Licensed Nursing Assistant Name Role Phone ROBI GONZALEZ Unavailable PROBLEMS Type Condition ICD9-CM Code [id number] Code Onset Dates Condition Status SNOMED Code Problem Benign essential tremor G25.0 Active 653622045 Problem Sciatica, right side M54.31 Active 31586123 Problem Essential hypertension I10 Active 35699399 Problem PTSD (post-traumatic stress disorder) F43.10 Active 95506106 Problem Mild intermittent asthma J45.20 Active 394791079 Problem Moderate episode of recurrent major depressive disorder F33.1 Active 395629585 Problem Iron deficiency anemia secondary to inadequate dietary iron intake D50.8 Active 597997266 Problem Mild intermittent asthma with (acute) exacerbation J45.21 Active 195788828 Problem Unspecified mood [affective] disorder F39 Active 56735382 ALLERGIES No Information ENCOUNTERS Encounter Location Date Diagnosis [facility] [address] [place] [address] 31112- 9112 25 Apr, 2018 [facility] [id number] [place] [address] 09395- 9239 Apr, [facility] [id number] [place] [address] 06143- 1399 28 Mar, 2018 Unspecified mood [affective] disorder F39 and PTSD (post- traumatic stress disorder) F43.10 [facility] [id number] [place] [address] 37863- 5119 13 Mar, 2018 Unspecified mood [affective] disorder F39 and Mild intermittent asthma J45.20 [facility] [address] [address]- 6468 07 Mar, 2018 Unspecified mood [affective] disorder F39 and Posttraumatic stress disorder F43.10 [facility] [address] [place] [address] 03005- 1921 Feb, Mild intermittent asthma with (acute) exacerbation J45.21 [place] [id number] [place] [address] 91252- 2396 Feb, Essential hypertension I10 and Moderate episode of recurrent major depressive disorder F33.1 [place] [id number] [place] [address] 46679- 5418 Feb, Unspecified mood [affective] disorder F39 and Posttraumatic stress disorder F43.10 [place] [id number] [place] [address] 49189- 7077 Feb, [place] [id number] [place] [address] 05880- 4716 Jan, Unspecified mood [affective] disorder F39 and Posttraumatic stress disorder F43.10 [place] [id number] [place] [address] 76350- 1141 Jan, Sciatica, right side M54.31 ; Moderate episode of recurrent major depressive disorder F33.1 ; Non-seasonal allergic rhinitis, unspecified trigger J30.89 ; Mild intermittent asthma with (acute) exacerbation J45.21 and BMI 50.0-59.9, adult Z68.43 [place] [id number] [place] [address] 50167- 6005 Jan, Unspecified mood [affective] disorder F39 [place] [address] [place] [address] 94644- 9241 December, Unspecified mood [affective] disorder F39 [place] [id number] [place] [address] 91857- 7234 December, [facility] [id number] [place] [address] 46534- 6516 Nov, Essential hypertension I10 [facility] [address] [place] [address] [id number] 26 Apr, 2018 Dental examination Z01.20 [address] Dental caries K02.9 [facility] [id number] [place] [address] 35312- 2531 Nov, [facility] [id number] [place] [address] 57368- 6923 Nov, Moderate episode of recurrent major depressive disorder F33.1 ; Essential hypertension I10 and BMI 50.0-59.9, adult Z68.43 [place] [id number] [place] [address] 60842- 6950 Oct, [place] [id number] [place] [address] 17087- 4927 Oct, [facility] [id number] [place] [address] 18589 -4706 Sep, Acute non-recurrent maxillary sinusitis J01.00 and BMI 50.0 -59.9, adult Z68.43 [facility] [id number] [place] [address] 65522 -7738 Sep, Acute non-recurrent maxillary sinusitis J01.00 and BMI 50.0 -59.9, adult Z68.43 [place] [id number] [place] [address] 16133- 4347 Jun, Acute suppurative otitis media of right ear without spontaneous rupture of tympanic membrane, recurrence not specified H66.001 ; BMI 50.0-59.9, adult Z68.43 and BMI 60.0-69.9, adult Z68.44 [place] [id number] [place] [address] 54647- 2765 Jun, [place] [address] 65231- 6974 May, [place] [id number] [place] [address] 25621- 9945 Apr, Benign essential tremor G25.0 [place] [address] 65080- 4733 Apr, [place] [address] [address]- 2553 Apr, Benign paroxysmal vertigo of both ears H81.13 [place] [address] [address]- 7859 Mar, [place] [address] [place] [address]- 0675 Feb, Sciatica, right side M54.31 ; Essential hypertension I10 ; Iron deficiency anemia secondary to inadequate dietary iron intake D50.8 and Benign essential tremor G25.0 [place] [address], [place] [address]- 5786 Feb, Benign essential tremor G25.0 and Essential hypertension I10 [place] [address], [place] [address]- 7423 Feb, Benign essential tremor G25.0 and Essential hypertension I10 IMMUNIZATIONS No Known Immunizations SOCIAL HISTORY Never Assessed REASON FOR VISIT Medication question PLAN OF CARE VITAL SIGNS MEDICATIONS Medication Instructions Dosage Frequency Start Date End Date Duration Status Hydrochlorothiazide 25 MG Orally Once a day 1 tablet in the morning 24h Feb, 90 days Active Abilify 15 MG Orally Once a day 1 tablet 24h Nov, 30 days Active RESULTS No Results PROCEDURES No Known procedures INSTRUCTIONS MEDICATIONS ADMINISTERED No Known Medications MEDICAL (GENERAL) HISTORY Type Description Date Medical History asthma Medical History chronic obstructive pulmonary disease (COPD) Medical History HTN Medical History sciatic pain Surgical History section x3 Surgical History exploratory laparoscopy Surgical History tubal ligation
--- OUTSIDE RECORDS SUMMARY | 2018-07-28 15:41 | XMS REPORT ---
Author Author ROBI GONZALEZ Organization [facility] Address [address] [place] [address] Care Team Providers Care Incident Response Analyst Name Role Phone ROBI GONZALEZ Unavailable PROBLEMS Type Condition ICD9-CM Code BCQ24-BT Code Onset Dates Condition Status SNOMED Code Problem Benign essential tremor G25.0 Active 327424839 Problem Sciatica, right side M54.31 Active 96818539 Problem Essential hypertension I10 Active 88633672 Problem PTSD (post-traumatic stress disorder) F43.10 Active 86276693 Problem Mild intermittent asthma J45.20 Active 535938922 Problem Moderate episode of recurrent major depressive disorder F33.1 Active 889867796 Problem Iron deficiency anemia secondary to inadequate dietary iron intake D50.8 Active 047713906 Problem Mild intermittent asthma with (acute) exacerbation J45.21 Active 868572053 Problem Unspecified mood [affective] disorder F39 Active 26794801 ALLERGIES Substance Reaction Event Type Date Status Percocet itching Drug Allergy Mar, Active ENCOUNTERS Encounter Location Date Diagnosis [facility] [address] [place] [address] 96010- 6067 May, [facility] [address], [place] [address]- 2613 Apr, [facility] [id number] [place] [address] 01449- 3529 Mar, Unspecified mood [affective] disorder F39 and PTSD (post- traumatic stress disorder) F43.10 [facility] [address] [place] [address] 67562- 3712 Mar, Unspecified mood [affective] disorder F39 and Mild intermittent asthma J45.20 [facility] [address], [place] [address]- 8948 Mar, Unspecified mood [affective] disorder F39 and Posttraumatic stress disorder F43.10 [facility] [address] [place] [address] 64943- 7636 Feb, Mild intermittent asthma with (acute) exacerbation J45.21 [facility] [id number] [place] [address] 25314- 0076 Feb, Essential hypertension I10 and Moderate episode of recurrent major depressive disorder F33.1 [place] [id number] [place] [address] 55871- 5093 Feb, Unspecified mood [affective] disorder F39 and Posttraumatic stress disorder F43.10 [place] [address] 40472- 0486 Feb, [facility] [id number] [place] [address] 11351- 6774 Jan, Unspecified mood [affective] disorder F39 and Posttraumatic stress disorder F43.10 [facility] [id number] [place] [address] 93056- 8755 Jan, Sciatica, right side M54.31 ; Moderate episode of recurrent major depressive disorder F33.1 ; Non-seasonal allergic rhinitis, unspecified trigger J30.89 ; Mild intermittent asthma with (acute) exacerbation J45.21 and BMI 50.0-59.9, adult Z68.43 [place] [id number] [place] [address] 61030- 9455 Jan, Unspecified mood [affective] disorder F39 [facility] [address] [place] [address] 35206- 8163 December, Unspecified mood [affective] disorder F39 [place] [id number] [place] [address] 51723- 4975 December, [facility] [id number] [place] [address] 35591- 5050 Nov, Essential hypertension I10 [facility] [id number] [place] [address] [id number] Nov, Dental examination Z01.20 and Dental caries K02.9 [facility] [id number] [place] [address] 21542- 1434 Nov, [facility] [id number] [place] [address] 65664- 2504 Nov, Moderate episode of recurrent major depressive disorder F33.1 ; Essential hypertension I10 and BMI 50.0-59.9, adult Z68.43 [place] [id number] [place] [address] 52501- 4430 Oct, [place] [id number] [place] [address] 82835- 7392 Oct, [facility] [place] [id number] [place] [address] 34573 -8469 Sep, Acute non-recurrent maxillary sinusitis J01.00 and BMI 50.0 -59.9, adult Z68.43 [facility] [address] [place] [address] 05519 -2908 Sep, Acute non-recurrent maxillary sinusitis J01.00 and BMI 50.0 -59.9, adult Z68.43 [place] [address] [place] [address] 15867- 9257 Jun, Acute suppurative otitis media of right ear without spontaneous rupture of tympanic membrane, recurrence not specified H66.001 ; BMI 50.0-59.9, adult Z68.43 and BMI 60.0-69.9, adult Z68.44 [place] [address], [place] [address]- 7341 Jun, [place] [id number] [place] [address] 59903- 8604 May, [place] [id number] [place] [address] 74324- 1523 Apr, Benign essential tremor G25.0 [place] [address], [place] [address]- 7952 Apr, [place] [id number] [place] [address] 14191- 6846 Apr, Benign paroxysmal vertigo of both ears H81.13 [place] [id number] [place] [address] 78508- 3127 Mar, [place] [id number] [place] [address] 27330- 8292 Feb, Sciatica, right side M54.31 ; Essential hypertension I10 ; Iron deficiency anemia secondary to inadequate dietary iron intake D50.8 and Benign essential tremor G25.0 [place] [id number] [place] [address] 84943- 3010 Feb, Benign essential tremor G25.0 and Essential hypertension I10 [place] [id number] [place] [address] 07218- 3657 Feb, Benign essential tremor G25.0 and Essential hypertension I10 IMMUNIZATIONS No Known Immunizations SOCIAL HISTORY Never Assessed REASON FOR VISIT Depression-ALLEN [place] PLAN OF CARE Activity Details Follow Up 6 Months Reason:asthma VITAL SIGNS Height 63 in 2018-03-18 Weight 282.0 lbs 2018-03-18 Temperature 98.0 degrees Fahrenheit 2018-03-18 Heart Rate 94 bpm 2018-03-18 Respiratory Rate 20 2018-03-18 Oximetry on room air:97 % 2018-03-18 BMI 49.95 kg/m2 2018-03-18 Blood pressure systolic 128 mmHg 2018-03-18 Blood pressure diastolic 80 mmHg 2018-03-18 MEDICATIONS Medication Instructions Dosage Frequency Start Date End Date Duration Status Flonase 50 MCG/ACT Nasally Once a day 1 spray in each nostril 24h 30 day(s) Active Propranolol HCl 10 mg Orally Twice a day 1 tablet 12h 30 days Active ProAir HFA 108 (90 Base) MCG/ACT Inhalation every 4 hrs 2 puffs as needed 4h 90 days Active Gabapentin 300 MG Orally Three times a day 1 capsule 8h Feb, 30 day(s) Active Ferrous Sulfate 325 (65 Fe) MG Orally Once a day 1 tablet 24h Feb, 30 day(s) Active Proventil HFA 108 (90 Base) MCG/ACT INHALE TWO PUFFS BY MOUTH EVERY 4 HOURS NEEDED 17 Active Abilify 15 MG Orally Once a day 1 tablet 24h Nov, 30 days Active Cyclobenzaprine HCl 10 mg Orally 2 times a day 1 tablet as needed 12h 18 Jan, 2018 Active Hydrochlorothiazide 25 MG Orally Once a day 1 tablet in the morning 24h Feb, 90 days Active Vitamin C 100 MG Orally Once a day 1 tablet 24h Active RESULTS No Results PROCEDURES No Known procedures INSTRUCTIONS MEDICATIONS ADMINISTERED No Known Medications MEDICAL (GENERAL) HISTORY Type Description Date Medical History asthma Medical History chronic obstructive pulmonary disease (COPD) Medical History HTN Medical History sciatic pain Surgical History section x3 Surgical History exploratory laparoscopy Surgical History tubal ligation
--- OUTSIDE RECORDS SUMMARY | 2018-07-28 15:42 | XMS REPORT ---
Author Author ROBI GONZALEZ Organization [facility] Address [address] [place] [address] Care Team Providers Care Sales And Service Representative Name Role Phone ROBI GONZALEZ Unavailable PROBLEMS Type Condition ICD9-CM Code UAS20-EQ Code Onset Dates Condition Status SNOMED Code Problem Benign essential tremor G25.0 Active 263536082 Problem Sciatica, right side M54.31 Active 08200875 Problem Essential hypertension I10 Active 42217633 Problem PTSD (post-traumatic stress disorder) F43.10 Active 88978976 Problem Mild intermittent asthma J45.20 Active 561595799 Problem Moderate episode of recurrent major depressive disorder F33.1 Active 728143920 Problem Iron deficiency anemia secondary to inadequate dietary iron intake D50.8 Active 963037798 Problem Mild intermittent asthma with (acute) exacerbation J45.21 Active 293485083 Problem Unspecified mood [affective] disorder F39 Active 90892170 ALLERGIES Substance Reaction Event Type Date Status Percocet itching Drug Allergy Jan, Active ENCOUNTERS Encounter Location Date Diagnosis [facility] [address], [place] [address] Apr, [facility] [address], [place] [address] Apr, [facility] [id number] [place] [address] 77480- 5708 Mar, Unspecified mood [affective] disorder F39 and PTSD (post- traumatic stress disorder) F43.10 [facility] [address] [place] [address] 83379- 0150 Mar, Unspecified mood [affective] disorder F39 and Mild intermittent asthma J45.20 [facility] [address], [place] [address] 07 Mar, 2018 Unspecified mood [affective] disorder F39 and Posttraumatic stress disorder F43.10 [facility] [address] [place] [address] 80379- 9166 Feb, Mild intermittent asthma with (acute) exacerbation J45.21 [facility] [id number] [place] [address] 39128- 9507 Feb, Essential hypertension I10 and Moderate episode of recurrent major depressive disorder F33.1 [place] [id number] [place] [address] 13525- 7300 Feb, Unspecified mood [affective] disorder F39 and Posttraumatic stress disorder F43.10 [place] [address] [address]- 9596 Feb, [facility] [id number] [place] [address] 40292- 1215 Jan, Unspecified mood [affective] disorder F39 and Posttraumatic stress disorder F43.10 [facility] [id number] [place] [address] 58815- 2124 Jan, Sciatica, right side M54.31 ; Moderate episode of recurrent major depressive disorder F33.1 ; Non-seasonal allergic rhinitis, unspecified trigger J30.89 ; Mild intermittent asthma with (acute) exacerbation J45.21 and BMI 50.0-59.9, adult Z68.43 [place] [id number] [place] [address] 13505- 5323 Jan, Unspecified mood [affective] disorder F39 [facility] [address] [place] [address] 70398- 1179 December, Unspecified mood [affective] disorder F39 [facility] [place] [id number] [place] [address] 34687- 9608 December, [facility] [id number] [place] [address] 88162- 9591 Nov, Essential hypertension I10 [facility] [id number] [place] [address] [id number] Nov, Dental examination Z01.20 and Dental caries K02.9 [facility] [id number] [place] [address] 58948- 1254 Nov, [facility] [id number] [place] [address] 66999- 1612 Nov, Moderate episode of recurrent major depressive disorder F33.1 ; Essential hypertension I10 and BMI 50.0-59.9, adult Z68.43 [place] [id number] [place] [address] 70492- 2397 Oct, [place] [id number] [place] [address] 61377- 6029 Oct, [facility] [place] [id number] [place] [address] 97885 -7986 Sep, Acute non-recurrent maxillary sinusitis J01.00 and BMI 50.0 -59.9, adult Z68.43 [facility] [address] [place] [address] 35232 -7133 Sep, Acute non-recurrent maxillary sinusitis J01.00 and BMI 50.0 -59.9, adult Z68.43 [place] [address] [place] [address] 16466- 9934 Jun, Acute suppurative otitis media of right ear without spontaneous rupture of tympanic membrane, recurrence not specified H66.001 ; BMI 50.0-59.9, adult Z68.43 and BMI 60.0-69.9, adult Z68.44 [place] [address], [place] [address] 2603 Jun, [place] [id number] [place] [address] 65895- 8052 May, [place] [id number] [place] [address] 27566- 8952 Apr, Benign essential tremor G25.0 [place] [address], [place] [address] 7543 Apr, [facility] [place] [id number] [place] [address] 66143- 8468 Apr, Benign paroxysmal vertigo of both ears H81.13 [place] [id number] [place] [address] 07059- 8437 Mar, [place] [id number] [place] [address] 55609- 9373 Feb, Sciatica, right side M54.31 ; Essential hypertension I10 ; Iron deficiency anemia secondary to inadequate dietary iron intake D50.8 and Benign essential tremor G25.0 [place] [id number] [place] [address] 97753- 2780 Feb, Benign essential tremor G25.0 and Essential hypertension I10 [place] [id number] [place] [address] 48611- 6410 Feb, Benign essential tremor G25.0 and Essential hypertension I10 IMMUNIZATIONS No Known Immunizations SOCIAL HISTORY Never Assessed REASON FOR VISIT issue with lower back, constant pain x several years, requesting flexeril script -----DBennettRN, sinus/chest congestion/drainage x 2 days, chills, denies fever PLAN OF CARE Activity Details Follow Up 2 Months Reason:depression / asthma Future/Pending Procedure ALBUTEROL UNIT DOSE FORM INHALED VITAL SIGNS Height 63 in 2018-01-21 Weight 290 lbs 2018-01-21 Temperature 98.3 degrees Fahrenheit 2018-01-21 Heart Rate 60 bpm 2018-01-21 Respiratory Rate 20 2018-01-21 BMI 51.37 kg/m2 2018-01-21 Blood pressure systolic 136 mmHg 2018-01-21 Blood pressure diastolic 82 mmHg 2018-01-21 MEDICATIONS Medication Instructions Dosage Frequency Start Date End Date Duration Status Cyclobenzaprine HCl 10 mg Orally 2 times a day 1 tablet as needed 12h 18 Jan, 2018 Active ProAir HFA 108 (90 Base) MCG/ACT Inhalation every 4 hrs 2 puffs as needed 4h 90 days Active Propranolol HCl 10 mg Orally Twice a day 1 tablet 12h Active Naproxen 500 mg Orally every 12 hrs 1 tablet as needed 12h Feb, Active Hydrochlorothiazide 25 MG Orally Once a day 1 tablet in the morning 24h Feb, 90 days Active Flonase 50 MCG/ACT Nasally Once a day 1 spray in each nostril 24h 30 day(s) Active Ferrous Sulfate 325 (65 Fe) MG Orally Once a day 1 tablet 24h Feb, 30 day(s) Active Gabapentin 300 MG Orally Three times a day 1 capsule 8h Feb, 30 day(s) Active Abilify 10 MG Orally Once a day 1 tablet 24h Nov, 90 days Active RESULTS No Results PROCEDURES Procedure Date Ordered Result Body Site ALBUTEROL INHAL UNIT DOSE 1 MG January 21, 2018 INSTRUCTIONS MEDICATIONS ADMINISTERED No Known Medications MEDICAL (GENERAL) HISTORY Type Description Date Medical History asthma Medical History chronic obstructive pulmonary disease (COPD) Medical History HTN Medical History sciatic pain Surgical History section x3 Surgical History exploratory laparoscopy Surgical History tubal ligation
--- OUTSIDE RECORDS SUMMARY | 2018-07-28 15:42 | XMS REPORT ---
Author Author ROBI GONZALEZ Organization [facility] Address [address] [place] [address] Care Team Providers Care Supervisor Ship Maintenance Services Name Role Phone ROBI GONZALEZ Unavailable PROBLEMS Type Condition ICD9-CM Code PQC97-CD Code Onset Dates Condition Status SNOMED Code Problem Essential hypertension I10 Active 94493038 Problem Benign essential tremor G25.0 Active 883882133 Problem Mild intermittent asthma with (acute) exacerbation J45.21 Active 021669167 Problem Posttraumatic stress disorder F43.10 Active 92243585 Problem Iron deficiency anemia secondary to inadequate dietary iron intake D50.8 Active 353625704 Problem Sciatica, right side M54.31 Active 54562078 Problem Unspecified mood [affective] disorder F39 Active 12823444 Problem Moderate episode of recurrent major depressive disorder F33.1 Active 412921177 ALLERGIES No Information ENCOUNTERS Encounter Location Date Diagnosis [facility] [address] [place] [address] 41978- 0419 Apr, [facility] [id number] [place] [address] 38983- 4422 Mar, [facility] [id number] [place] [address] 61934- 7520 Mar, Unspecified mood [affective] disorder F39 and Posttraumatic stress disorder F43.10 [facility] [address] [place] [address] 84095- 2782 Feb, Mild intermittent asthma with (acute) exacerbation J45.21 [facility] [id number] [place] [address] 20586- 0613 Feb, Essential hypertension I10 and Moderate episode of recurrent major depressive disorder F33.1 [facility] [id number] [place] [address] 51177- 4834 Feb, Unspecified mood [affective] disorder F39 and Posttraumatic stress disorder F43.10 [facility] [id number] [place] [address] 06422- 0082 Feb, [facility] [id number] [place] [address] 14679- 7592 Jan, Unspecified mood [affective] disorder F39 and Posttraumatic stress disorder F43.10 [place] [id number] [place] [address] 12829- 7668 Jan, Sciatica, right side M54.31 ; Moderate episode of recurrent major depressive disorder F33.1 ; Non-seasonal allergic rhinitis, unspecified trigger J30.89 ; Mild intermittent asthma with (acute) exacerbation J45.21 and BMI 50.0-59.9, adult Z68.43 [place] [id number] [place] [address] 88421- 9859 05 Jan, 2018 Unspecified mood [affective] disorder F39 [place] [id number] [place] [address] 77182- 8529 December, Unspecified mood [affective] disorder F39 [place] [id number] [place] [address] 00805- 6333 December, [facility] [id number] [place] [address] 68095- 4196 Nov, Essential hypertension I10 [facility] [id number] [place] [address] [phone] Nov, Dental examination Z01.20 and Dental caries K02.9 [facility] [id number] [place] [address] 37838- 8109 Nov, [place] [id number] [place] [address] 05265- 0191 Nov, Moderate episode of recurrent major depressive disorder F33.1 ; Essential hypertension I10 and BMI 50.0-59.9, adult Z68.43 [place] [id number] [place] [address] 50818- 1330 Oct, [facility] [id number] [place] [address] 44071- 0975 Oct, [facility] [id number] [place] [address] 59740 -6064 Sep, Acute non-recurrent maxillary sinusitis J01.00 and BMI 50.0 -59.9, adult Z68.43 [facility] [address] 21395 -2885 Sep, Acute non-recurrent maxillary sinusitis J01.00 and BMI 50.0 -59.9, adult Z68.43 [place] [address] 60539- 0873 Jun, Acute suppurative otitis media of right ear without spontaneous rupture of tympanic membrane, recurrence not specified H66.001 ; BMI 50.0-59.9, adult Z68.43 and BMI 60.0-69.9, adult Z68.44 [place] [id number] [place] [address] 48337- 1618 Jun, [place] [address] 88870- 3739 May, [place] [id number] [place] [address] 46182- 7875 Apr, Benign essential tremor G25.0 [place] [id number] [place] [address] 52087- 3133 Apr, [facility] [address] [address]42- 1973 Apr, Benign paroxysmal vertigo of both ears H81.13 [facility] [id number] [place] [address] 02886- 9458 Mar, [place] [address] 87677- 3751 19 Ricardo, 2017 Sciatica, right side M54.31 ; Essential hypertension I10 ; Iron deficiency anemia secondary to inadequate dietary iron intake D50.8 and Benign essential tremor G25.0 [facility] [id number] [address]- 8489 Feb, Benign essential tremor G25.0 and Essential hypertension I10 [facility] [address] [facility] [id number] [address]- 5162 Feb, Benign essential tremor G25.0 and Essential hypertension I10 IMMUNIZATIONS No Known Immunizations SOCIAL HISTORY Never Assessed REASON FOR VISIT Refill request PLAN OF CARE VITAL SIGNS MEDICATIONS Medication Instructions Dosage Frequency Start Date End Date Duration Status Propranolol HCl 10 mg Orally Twice a day 1 tablet 12h Active RESULTS No Results PROCEDURES No Known procedures INSTRUCTIONS MEDICATIONS ADMINISTERED No Known Medications MEDICAL (GENERAL) HISTORY Type Description Date Medical History asthma Medical History chronic obstructive pulmonary disease (COPD) Surgical History section x3 Surgical History exploratory laparoscopy Surgical History tubal ligation
--- OUTSIDE RECORDS SUMMARY | 2018-07-28 15:42 | XMS REPORT ---
Author Author JERRICA CAIN Organization [facility] Address [address] [place] [address] Care Team Providers Care Endoscopic Technician Name Role Phone JERRICA CAIN Unavailable PROBLEMS Type Condition ICD9-CM Code YVA83-ND Code Onset Dates Condition Status SNOMED Code Problem Benign essential tremor G25.0 Active 286097777 Problem Sciatica, right side M54.31 Active 10401307 Problem Essential hypertension I10 Active 92181525 Problem PTSD (post-traumatic stress disorder) F43.10 Active 77386497 Problem Mild intermittent asthma J45.20 Active 108521848 Problem Moderate episode of recurrent major depressive disorder F33.1 Active 603006184 Problem Iron deficiency anemia secondary to inadequate dietary iron intake D50.8 Active 472764185 Problem Mild intermittent asthma with (acute) exacerbation J45.21 Active 762351377 Problem Unspecified mood [affective] disorder F39 Active 20524753 ALLERGIES No Information ENCOUNTERS Encounter Location Date Diagnosis [facility] [address] [place] [address] 45041- 1608 25 Apr, 2018 [facility] [id number] [place] [address] 81886- 0924 Apr, [facility] [id number] [place] [address] 39913- 4403 28 Mar, 2018 Unspecified mood [affective] disorder F39 and PTSD (post- traumatic stress disorder) F43.10 [facility] [id number] [place] [address] 76852- 4168 13 Mar, 2018 Unspecified mood [affective] disorder F39 and Mild intermittent asthma J45.20 [facility] [address] [place] [address] 32399- 8262 07 Mar, 2018 Unspecified mood [affective] disorder F39 and Posttraumatic stress disorder F43.10 [facility] [address] [place] [address] 12411- 4363 Feb, Mild intermittent asthma with (acute) exacerbation J45.21 [facility] [id number] [place] [address] 52868- 9776 Feb, Essential hypertension I10 and Moderate episode of recurrent major depressive disorder F33.1 [place] [id number] [place] [address] 18253- 3896 Feb, Unspecified mood [affective] disorder F39 and Posttraumatic stress disorder F43.10 [place] [id number] [place] [address] 28939- 8556 Feb, [place] [id number] [place] [address] 98354- 3735 Jan, Unspecified mood [affective] disorder F39 and Posttraumatic stress disorder F43.10 [place] [id number] [place] [address] 21528- 6397 Jan, Sciatica, right side M54.31 ; Moderate episode of recurrent major depressive disorder F33.1 ; Non-seasonal allergic rhinitis, unspecified trigger J30.89 ; Mild intermittent asthma with (acute) exacerbation J45.21 and BMI 50.0-59.9, adult Z68.43 [place] [address] [place] [address] 74004- 2409 Jan, Unspecified mood [affective] disorder F39 [facility] [address] [place] [address] 99394- 7647 December, Unspecified mood [affective] disorder F39 [place] [id number] [place] [address] 10306- 2652 December, [facility] [id number] [place] [address] 89560- 4485 Nov, Essential hypertension I10 [facility] [address] [place] [address] [id number] 26 Apr, 2018 Dental examination Z01.20 and Dental caries K02.9 [facility] [id number] [place] [address] 71734- 6752 Nov, [facility] [id number] [place] [address] 89272- 5652 Nov, Moderate episode of recurrent major depressive disorder F33.1 ; Essential hypertension I10 and BMI 50.0-59.9, adult Z68.43 [place] [address] 84880- 3146 Oct, [facility] [address] 08396- 4745 Oct, [facility] [place] [address] 91478 -3633 Sep, Acute non-recurrent maxillary sinusitis J01.00 and BMI 50.0 -59.9, adult Z68.43 [facility] [id number] [place] [address] 75879 -1993 Sep, Acute non-recurrent maxillary sinusitis J01.00 and BMI 50.0 -59.9, adult Z68.43 [place] [id number] [place] [address] 98202- 0987 Jun, Acute suppurative otitis media of right ear without spontaneous rupture of tympanic membrane, recurrence not specified H66.001 ; BMI 50.0-59.9, adult Z68.43 and BMI 60.0-69.9, adult Z68.44 [place] [id number] [place] [address] 05824- 7078 Jun, [place] [address] 10713- 9955 May, [place] [address] 66199- 7704 Apr, Benign essential tremor G25.0 [place] [address] 81712- 7701 Apr, [facility] [id number] [address]- 2051 Apr, Benign paroxysmal vertigo of both ears H81.13 [place] [address], [place] [address]- 7712 Mar, [place] [address] [address]- 5098 Feb, Sciatica, right side M54.31 ; Essential hypertension I10 ; Iron deficiency anemia secondary to inadequate dietary iron intake D50.8 and Benign essential tremor G25.0 [place] [address], [place] [address]- 0021 Feb, Benign essential tremor G25.0 and Essential hypertension I10 [place] [id number] [address]- 0472 Feb, Benign essential tremor G25.0 and Essential hypertension I10 IMMUNIZATIONS No Known Immunizations SOCIAL HISTORY Never Assessed REASON FOR VISIT f/u PLAN OF CARE Activity Details Follow Up Next available Reason:mood VITAL SIGNS MEDICATIONS Unknown Medications RESULTS No Results PROCEDURES Procedure Date Ordered Result Body Site Psychotherapy, patient &/family, 45 minutes, established patient January 29, 2018 INSTRUCTIONS MEDICATIONS ADMINISTERED No Known Medications MEDICAL (GENERAL) HISTORY Type Description Date Medical History asthma Medical History chronic obstructive pulmonary disease (COPD) Medical History HTN Medical History sciatic pain Surgical History section x3 Surgical History exploratory laparoscopy Surgical History tubal ligation
--- OUTSIDE RECORDS SUMMARY | 2018-07-28 15:42 | XMS REPORT ---
Author Author JERRICA CAIN Organization [facility] Address [address] [place] [address] Care Team Providers Care Sales Enablement Consultant Name Role Phone JERRICA CAIN Unavailable PROBLEMS Type Condition ICD9-CM Code NIO44-BI Code Onset Dates Condition Status SNOMED Code Problem Benign essential tremor G25.0 Active 489970951 Problem Sciatica, right side M54.31 Active 96592303 Problem Essential hypertension I10 Active 38991528 Problem Mild intermittent asthma J45.20 Active 180342333 Problem Mild intermittent asthma with (acute) exacerbation J45.21 Active 224442285 Problem Moderate episode of recurrent major depressive disorder F33.1 Active 536188540 Problem Iron deficiency anemia secondary to inadequate dietary iron intake D50.8 Active 543558870 Problem Posttraumatic stress disorder F43.10 Active 79027898 Problem Unspecified mood [affective] disorder F39 Active 24444613 ALLERGIES No Information ENCOUNTERS Encounter Location Date Diagnosis [facility] [address] [address] Apr, [facility] [id number] [place] [address] 95722- 1540 Mar, [facility] [id number] [place] [address] 21351- 6384 13 Mar, 2018 Unspecified mood [affective] disorder F39 and Mild intermittent asthma J45.20 [facility] [id number] [place] [address] 67385- 7107 07 Mar, 2018 Unspecified mood [affective] disorder F39 and Posttraumatic stress disorder F43.10 [facility] [id number] [place] [address] 60526- 7373 Feb, Mild intermittent asthma with (acute) exacerbation J45.21 [facility] [address] [place] [address] Feb, Essential hypertension I10 and Moderate episode of recurrent major depressive disorder F33.1 [facility] [id number] [place] [address] 65833- 5574 Feb, Unspecified mood [affective] disorder F39 and Posttraumatic stress disorder F43.10 [facility] [id number] [place] [address] 04266- 0140 Feb, [facility] [id number] [place] [address] 04935- 4180 Jan, Unspecified mood [affective] disorder F39 and Posttraumatic stress disorder F43.10 [place] [id number] [place] [address] 49538- 7432 Jan, Sciatica, right side M54.31 ; Moderate episode of recurrent major depressive disorder F33.1 ; Non-seasonal allergic rhinitis, unspecified trigger J30.89 ; Mild intermittent asthma with (acute) exacerbation J45.21 and BMI 50.0-59.9, adult Z68.43 [facility] [id number] [place] [address] 95699- 6673 Jan, Unspecified mood [affective] disorder F39 [facility] [id number] [place] [address] 57762- 7192 December, Unspecified mood [affective] disorder F39 [facility] [id number] [place] [address] 48528- 8687 December, [facility] [id number] [place] [address] 12807- 8982 Nov, Essential hypertension I10 [facility] [address] [id number] Nov, Dental examination Z01.20 and Dental caries K02.9 [facility] [id number] [place] [address] 33067- 7595 Nov, [facility] [id number] [place] [address] 22336- 2523 Nov, Moderate episode of recurrent major depressive disorder F33.1 ; Essential hypertension I10 and BMI 50.0-59.9, adult Z68.43 [place] [id number] [place] [address] 37290- 1987 Oct, [place] [address] [address]- [address]69 Oct, [facility] [address] [address] Sep, Acute non-recurrent maxillary sinusitis J01.00 and BMI 50.0 -59.9, adult Z68.43 [facility] [place] [id number] [place] [address] 04086 -3580 Sep, Acute non-recurrent maxillary sinusitis J01.00 and BMI 50.0 -59.9, adult Z68.43 [place] [address] [address]2668- 7315 Jun, Acute suppurative otitis media of right ear without spontaneous rupture of tympanic membrane, recurrence not specified H66.001 ; BMI 50.0-59.9, adult Z68.43 and BMI 60.0-69.9, adult Z68.44 [place] [id number] [place] [address] 32125- 5313 Jun, [facility] [id number] [place] [address] 01563- 7756 May, [facility] [address] 6[address]- 2088 Apr, Benign essential tremor G25.0 [place] [id number] [place] [address] 69929- 6677 Apr, [facility] [id number] [place] [address] 67361- 5528 Apr, Benign paroxysmal vertigo of both ears H81.13 [place] [address] [place] [id number] [address] Mar, [facility] [address] [address] Feb, Sciatica, right side M54.31 ; Essential hypertension I10 ; Iron deficiency anemia secondary to inadequate dietary iron intake D50.8 and Benign essential tremor G25.0 [place] [address] [address] 1046 Feb, Benign essential tremor G25.0 and Essential hypertension I10 [facility] [place] [address] [place] [address] [id number] [address] 134[address] Feb, Benign essential tremor G25.0 and Essential hypertension I10 IMMUNIZATIONS No Known Immunizations SOCIAL HISTORY Never Assessed REASON FOR VISIT f/u PLAN OF CARE Activity Details Follow Up Next available Reason:mood VITAL SIGNS MEDICATIONS Unknown Medications RESULTS No Results PROCEDURES Procedure Date Ordered Result Body Site Psychotherapy, patient &/family, 30 minutes, established patient January 08, 2018 INSTRUCTIONS MEDICATIONS ADMINISTERED No Known Medications MEDICAL (GENERAL) HISTORY Type Description Date Medical History asthma Medical History chronic obstructive pulmonary disease (COPD) Surgical History section x3 Surgical History exploratory laparoscopy Surgical History tubal ligation
--- OUTSIDE RECORDS SUMMARY | 2018-07-28 15:42 | XMS REPORT ---
Author Author JERRICA CAIN Organization [facility] Address [address] [place] [address] Care Team Providers Care Hand Cigar Maker Name Role Phone JERRICA CAIN Unavailable PROBLEMS Type Condition ICD9-CM Code [id number] Code Onset Dates Condition Status SNOMED Code Problem Benign essential tremor G25.0 Active 629180888 Problem Sciatica, right side M54.31 Active 70317751 Problem Essential hypertension I10 Active 01348569 Problem Mild intermittent asthma J45.20 Active 055599522 Problem Mild intermittent asthma with (acute) exacerbation J45.21 Active 193593576 Problem Moderate episode of recurrent major depressive disorder F33.1 Active 710450313 Problem Iron deficiency anemia secondary to inadequate dietary iron intake D50.8 Active 150537867 Problem Posttraumatic stress disorder F43.10 Active 02638487 Problem Unspecified mood [affective] disorder F39 Active 92044159 ALLERGIES No Information ENCOUNTERS Encounter Location Date Diagnosis [facility] [address] [address] Apr, [facility] [id number] [place] [address] 50291- 8795 Mar, [facility] [id number] [place] [address] 71949- 2744 13 Mar, 2018 Unspecified mood [affective] disorder F39 and Mild intermittent asthma J45.20 [facility] [id number] [place] [address] 81677- 5613 07 Mar, 2018 Unspecified mood [affective] disorder F39 and Posttraumatic stress disorder F43.10 [facility] [id number] [place] [address] 98973- 4624 Feb, Mild intermittent asthma with (acute) exacerbation J45.21 [facility] [address] [place] [address]- 5320 Feb, Essential hypertension I10 and Moderate episode of recurrent major depressive disorder F33.1 [facility] [id number] [place] [address] 24465- 2989 Feb, Unspecified mood [affective] disorder F39 and Posttraumatic stress disorder F43.10 [facility] [id number] [place] [address] 53009- 4502 Feb, [facility] [id number] [place] [address] 88986- 2530 Jan, Unspecified mood [affective] disorder F39 and Posttraumatic stress disorder F43.10 [place] [id number] [place] [address] 47218- 0843 Jan, Sciatica, right side M54.31 ; Moderate episode of recurrent major depressive disorder F33.1 ; Non-seasonal allergic rhinitis, unspecified trigger J30.89 ; Mild intermittent asthma with (acute) exacerbation J45.21 and BMI 50.0-59.9, adult Z68.43 [place] [id number] [place] [address] 61334- 7962 Jan, Unspecified mood [affective] disorder F39 [facility] [id number] [place] [address] 04451- 1418 December, Unspecified mood [affective] disorder F39 [facility] [id number] [place] [address] 47928- 8078 December, [facility] [id number] [place] [address] 05367- 6345 Nov, Essential hypertension I10 [facility] [address] [id number] Nov, Dental examination Z01.20 and Dental caries K02.9 [facility] [id number] [place] [address] 14767- 8370 Nov, [facility] [id number] [place] [address] 17736- 7517 Nov, Moderate episode of recurrent major depressive disorder F33.1 ; Essential hypertension I10 and BMI 50.0-59.9, adult Z68.43 [place] [id number] [place] [address] 00405- 8323 Oct, [place] [address] 56007- 8313 Oct, [facility] WALK IN [facility] [address] [address] Sep, Acute non-recurrent maxillary sinusitis J01.00 and BMI 50.0 -59.9, adult Z68.43 [facility]ALK IN [place] [id number] [place] [address] 61498 -8689 Sep, Acute non-recurrent maxillary sinusitis J01.00 and BMI 50.0 -59.9, adult Z68.43 [place] [address] 49424- 7450 Jun, Acute suppurative otitis media of right ear without spontaneous rupture of tympanic membrane, recurrence not specified H66.001 ; BMI 50.0-59.9, adult Z68.43 and BMI 60.0-69.9, adult Z68.44 [place] [id number] [place] [address] 03360- 5438 Jun, [place] [id number] [place] [address] 48258- 9111 May, [place] [address] 17855- 1504 Apr, Benign essential tremor G25.0 [place] [id number] [place] [address] 49127- 8177 Apr, [place] [id number] [place] [address] 61284- 4574 Apr, Benign paroxysmal vertigo of both ears H81.13 [place] [address] [facility] [id number] [address] Mar, [place] [address] [place] [id number] [address]- 6103 Feb, Sciatica, right side M54.31 ; Essential hypertension I10 ; Iron deficiency anemia secondary to inadequate dietary iron intake D50.8 and Benign essential tremor G25.0 [place] [address] [address]- 0402 Feb, Benign essential tremor G25.0 and Essential hypertension I10 [place] [address] [id number] [address]- 7842 Feb, Benign essential tremor G25.0 and Essential hypertension I10 IMMUNIZATIONS No Known Immunizations SOCIAL HISTORY Never Assessed REASON FOR VISIT intake PLAN OF CARE Activity Details Follow Up next available Reason:depression VITAL SIGNS MEDICATIONS Medication Instructions Dosage Frequency Start Date End Date Duration Status Gabapentin 300 MG Orally Three times a day 1 capsule 8h Feb, 30 day(s) Active Ferrous Sulfate 325 (65 Fe) MG Orally Once a day 1 tablet 24h Feb, 30 day(s) Active ProAir HFA 108 (90 Base) MCG/ACT Inhalation every 4 hrs 2 puffs as needed 4h Active Abilify 5 mg Orally Once a day 1 tablet 24h Nov, 30 day(s) Active Aspirin 325 MG Orally twice a day as needed 1 tablet Unknown Naproxen 500 mg Orally every 12 hrs 1 tablet as needed 12h Feb, Active Claritin 10 MG Orally Once a day 1 tablet 24h Active Flonase 50 MCG/ACT Nasally Once a day 1 spray in each nostril 24h 30 day(s) Active SudoGest 60 mg Orally every 6 hrs 1 tablet as needed 6h Jun, 05 days Unknown Propranolol HCl 10 mg Orally Twice a day 1 tablet 12h Active Hydrochlorothiazide 25 MG Orally Once a day 1 tablet in the morning 24h Feb, 90 days Active RESULTS No Results PROCEDURES Procedure Date Ordered Result Body Site Psych diagnostic evaluation, established patient December 17, 2017 INSTRUCTIONS MEDICATIONS ADMINISTERED No Known Medications MEDICAL (GENERAL) HISTORY Type Description Date Medical History asthma Medical History chronic obstructive pulmonary disease (COPD) Surgical History section x3 Surgical History exploratory laparoscopy Surgical History tubal ligation
--- OUTSIDE RECORDS SUMMARY | 2018-07-28 15:42 | XMS REPORT ---
Author Author ROBI GONZALEZ Organization [facility] Address [address] [place] [address] Care Team Providers Care Development Planner Name Role Phone ROBI GONZALEZ Unavailable PROBLEMS Type Condition ICD9-CM Code WHU15-SC Code Onset Dates Condition Status SNOMED Code Problem Benign essential tremor G25.0 Active 292751952 Problem Sciatica, right side M54.31 Active 25116863 Problem Essential hypertension I10 Active 10621215 Problem Mild intermittent asthma J45.20 Active 465960771 Problem Mild intermittent asthma with (acute) exacerbation J45.21 Active 200990196 Problem Moderate episode of recurrent major depressive disorder F33.1 Active 573583204 Problem Iron deficiency anemia secondary to inadequate dietary iron intake D50.8 Active 888350030 Problem Posttraumatic stress disorder F43.10 Active 85034942 Problem Unspecified mood [affective] disorder F39 Active 96020450 ALLERGIES Substance Reaction Event Type Date Status Percocet itching Drug Allergy Nov, Active ENCOUNTERS Encounter Location Date Diagnosis [facility] [id number] [place] [address] 46847- 7277 Apr, [facility] [id number] [place] [address] 28637- 1771 Mar, [facility] [id number] [place] [address] 37546- 9816 13 Mar, 2018 Unspecified mood [affective] disorder F39 and Mild intermittent asthma J45.20 [facility] [id number] [place] [address] 09276- 5824 07 Mar, 2018 Unspecified mood [affective] disorder F39 and Posttraumatic stress disorder F43.10 [facility] [address] [address]- 84[address] Feb, Mild intermittent asthma with (acute) exacerbation J45.21 [facility] [address] [place] [address] 25929- 6424 20 Feb, 2018 Essential hypertension I10 and Moderate episode of recurrent major depressive disorder F33.1 [facility] [id number] [place] [address] 33736- 5766 Feb, Unspecified mood [affective] disorder F39 and Posttraumatic stress disorder F43.10 [facility] [id number] [place] [address] 73784- 8931 Feb, [facility] [id number] [place] [address] 55780- 5031 Jan, Unspecified mood [affective] disorder F39 and Posttraumatic stress disorder F43.10 [facility] [address] [place] [address] 98198- 7658 18 Jan, 2018 Sciatica, right side M54.31 ; Moderate episode of recurrent major depressive disorder F33.1 ; Non-seasonal allergic rhinitis, unspecified trigger J30.89 ; Mild intermittent asthma with (acute) exacerbation J45.21 and BMI 50.0-59.9, adult Z68.43 [facility] [address] [place] [address] 77542- 9737 05 Jan, 2018 Unspecified mood [affective] disorder F39 [facility] [address] [place] [address] 19867- 5446 December, Unspecified mood [affective] disorder F39 [facility] [id number] [place] [address] 91860- 6688 December, [facility] [id number] [place] [address] 31654- 8755 Nov, Essential hypertension I10 [facility] [address] [place] [address] [id number] Nov, Dental examination Z01.20 and Dental caries K02.9 [facility] [id number] [place] [address] 71348- 3418 Nov, [facility] [address] [place] [address] 28160- 1189 Nov, Moderate episode of recurrent major depressive disorder F33.1 ; Essential hypertension I10 and BMI 50.0-59.9, adult Z68.43 [facility] [address] [place] [address] 42122- 4049 Oct, [facility] [address] 367[address]- 8222 Oct, [facility] [address] [place] [address] 81573 -6177 Sep, Acute non-recurrent maxillary sinusitis J01.00 and BMI 50.0 -59.9, adult Z68.43 [facility] [address] [place] [address] 56710 -4831 Sep, Acute non-recurrent maxillary sinusitis J01.00 and BMI 50.0 -59.9, adult Z68.43 [place] [address] [place] [address] 49826- 5176 Jun, Acute suppurative otitis media of right ear without spontaneous rupture of tympanic membrane, recurrence not specified H66.001 ; BMI 50.0-59.9, adult Z68.43 and BMI 60.0-69.9, adult Z68.44 [place] [address] [place] [address] 98799- 2467 Jun, [place] [address] [place] [address] 66144- 0723 May, [place] [address] [place] [address] 78679- 8655 Apr, Benign essential tremor G25.0 [facility] [address] [place] [address] 70974- 3541 Apr, [place] [address] [place] [address] 31494- 2136 Apr, Benign paroxysmal vertigo of both ears H81.13 [place] [address] [place] [id number] [address]- 46[address] Mar, [place] [address] [address]- 2985 Feb, Sciatica, right side M54.31 ; Essential hypertension I10 ; Iron deficiency anemia secondary to inadequate dietary iron intake D50.8 and Benign essential tremor G25.0 [place] [address] [place] [address] 76584- 3434 Feb, Benign essential tremor G25.0 and Essential hypertension I10 [place] [address] [place] [address] 67432- 1622 Feb, Benign essential tremor G25.0 and Essential hypertension I10 IMMUNIZATIONS No Known Immunizations SOCIAL HISTORY Never Assessed REASON FOR VISIT HTN----Jean Carlos PLAN OF CARE Activity Details Follow Up 4 Weeks Reason:depression and new med (abilify) VITAL SIGNS Height 63 in 2017-11-26 Weight 295 lbs 2017-11-26 Temperature 98.0 degrees Fahrenheit 2017-11-26 Heart Rate 70 bpm 2017-11-26 Respiratory Rate 20 2017-11-26 BMI 52.25 kg/m2 2017-11-26 Blood pressure systolic 142 mmHg 2017-11-26 Blood pressure diastolic 90 mmHg 2017-11-26 MEDICATIONS Medication Instructions Dosage Frequency Start Date End Date Duration Status Hydrochlorothiazide 25 MG Orally Once a day 1 tablet in the morning 24h Feb, 90 days Active Naproxen 500 mg Orally every 12 hrs 1 tablet as needed 12h Feb, Active ProAir HFA 108 (90 Base) MCG/ACT Inhalation every 4 hrs 2 puffs as needed 4h Not-Taking SudoGest 60 mg Orally every 6 hrs 1 tablet as needed 6h Jun, 05 days Not-Taking Claritin 10 MG Orally Once a day 1 tablet 24h Active Aspirin 325 MG Orally twice a day as needed 1 tablet Not-Taking Flonase 50 MCG/ACT Nasally Once a day 1 spray in each nostril 24h 30 day(s) Active Propranolol HCl 10 mg Orally Twice a day 1 tablet 12h 30 Active Abilify 5 mg Orally Once a day 1 tablet 24h 23 Apr, 2018 30 day(s) Active Gabapentin 300 MG Orally Three times a day 1 capsule 8h Feb, 30 day(s) Active Ferrous Sulfate 325 (65 Fe) MG Orally Once a day 1 tablet 24h Feb, 30 day(s) Active RESULTS No Results PROCEDURES No Known procedures INSTRUCTIONS MEDICATIONS ADMINISTERED No Known Medications MEDICAL (GENERAL) HISTORY Type Description Date Medical History asthma Medical History chronic obstructive pulmonary disease (COPD) Surgical History section x3 Surgical History exploratory laparoscopy Surgical History tubal ligation
--- OUTSIDE RECORDS SUMMARY | 2018-07-28 15:43 | XMS REPORT ---
Author Author TIFFANY FOREMAN [facility] Address Unknown Care Team Providers Care Gravity Prospecting Observer Helper Name Role Phone TIFFANY FOREMAN Unavailable PROBLEMS Type Condition ICD9-CM Code [id number] Code Onset Dates Condition Status SNOMED Code Problem Essential hypertension I10 Active 32210703 Problem Benign essential tremor G25.0 Active 926834886 Problem Mild intermittent asthma with (acute) exacerbation J45.21 Active 548873925 Problem Posttraumatic stress disorder F43.10 Active 20653780 Problem Iron deficiency anemia secondary to inadequate dietary iron intake D50.8 Active 958769218 Problem Sciatica, right side M54.31 Active 42249110 Problem Unspecified mood [affective] disorder F39 Active 34941418 Problem Moderate episode of recurrent major depressive disorder F33.1 Active 744863522 ALLERGIES Substance Reaction Event Type Date Status Percocet itching Drug Allergy Nov, Active ENCOUNTERS Encounter Location Date Diagnosis [facility] [address] [address] Mar, [facility] [address] [address]- 1474 Feb, Mild intermittent asthma with (acute) exacerbation J45.21 [facility] [id number] [place] [address] 89018- 0760 Feb, Essential hypertension I10 and Moderate episode of recurrent major depressive disorder F33.1 [facility] [id number] [place] [address] 14957- 2755 Feb, Unspecified mood [affective] disorder F39 and Posttraumatic stress disorder F43.10 [facility] [id number] [place] [address] 99903- 8372 Feb, [facility] [address] 01882- 3376 Jan, Unspecified mood [affective] disorder F39 and Posttraumatic stress disorder F43.10 [facility] [id number] [place] [address] 01730- 8052 Jan, Sciatica, right side M54.31 ; Moderate episode of recurrent major depressive disorder F33.1 ; Non-seasonal allergic rhinitis, unspecified trigger J30.89 ; Mild intermittent asthma with (acute) exacerbation J45.21 and BMI 50.0-59.9, adult Z68.43 [facility] [id number] [place] [address] 76722- 8051 Jan, Unspecified mood [affective] disorder F39 [facility] [address] 8[address]- 3353 December, Unspecified mood [affective] disorder F39 [facility] [id number] [place] [address] 90628- 0554 December, [facility] [address] 18138- 4517 Nov, Essential hypertension I10 [facility] [address] [id number] Nov, Dental examination Z01.20 and Dental caries K02.9 [facility] [id number] [place] [address] 63491- 4136 Nov, [facility] [id number] [place] [address] 17231- 8214 Nov, Moderate episode of recurrent major depressive disorder F33.1 ; Essential hypertension I10 and BMI 50.0-59.9, adult Z68.43 [facility] [address] 32200- 7958 Oct, [facility] [id number] [place] [address] 27519- 1713 Oct, [facility] WALK IN [facility] [address] 07[address] -[address] Sep, Acute non-recurrent maxillary sinusitis J01.00 and BMI 50.0 -59.9, adult Z68.43 [facility] [id number] [place] [address] 04819 -2455 26 Sep, 2017 Acute non-recurrent maxillary sinusitis J01.00 and BMI 50.0 -59.9, adult Z68.43 [facility] [address] [address]- 2853 Jun, Acute suppurative otitis media of right ear without spontaneous rupture of tympanic membrane, recurrence not specified H66.001 ; BMI 50.0-59.9, adult Z68.43 and BMI 60.0-69.9, adult Z68.44 [facility] [id number] [place] [address] 24329- 1052 Jun, [facility] [address] 41842- 8169 May, [facility] [address] 20661- 8539 Apr, Benign essential tremor G25.0 [place] [address] 29374- 2691 Apr, [facility] [id number] [place] [address] 91747- 2390 Apr, Benign paroxysmal vertigo of both ears H81.13 [facility] [address] 03573- 8900 Mar, [place] [address] 24123- 4162 Feb, Sciatica, right side M54.31 ; Essential hypertension I10 ; Iron deficiency anemia secondary to inadequate dietary iron intake D50.8 and Benign essential tremor G25.0 [facility] [id number] [place] [address] 36578- 5427 Feb, Benign essential tremor G25.0 and Essential hypertension I10 [facility] [address] [facility] [id number] [place] [address]- [address] Feb, Benign essential tremor G25.0 and Essential hypertension I10 IMMUNIZATIONS No Known Immunizations SOCIAL HISTORY Never Assessed REASON FOR VISIT priyanka PLAN OF CARE Activity Details Follow Up prn Reason:Cleaning VITAL SIGNS MEDICATIONS Medication Instructions Dosage Frequency Start Date End Date Duration Status Naproxen 500 mg Orally every 12 hrs 1 tablet as needed 12h Feb, Active Gabapentin 300 MG Orally Three times a day 1 capsule 8h Feb, 30 day(s) Active Hydrochlorothiazide 25 MG Orally Once a day 1 tablet in the morning 24h Feb, 90 days Active Flonase 50 MCG/ACT Nasally Once a day 1 spray in each nostril 24h 30 day(s) Active Aspirin 325 MG Orally twice a day as needed 1 tablet Not-Taking ProAir HFA 108 (90 Base) MCG/ACT Inhalation every 4 hrs 2 puffs as needed 4h Active Abilify 5 mg Orally Once a day 1 tablet 24h Nov, 30 day(s) Active Propranolol HCl 10 mg Orally Twice a day 1 tablet 12h 30 Active SudoGest 60 mg Orally every 6 hrs 1 tablet as needed 6h Jun, 05 days Not-Taking Claritin 10 MG Orally Once a day 1 tablet 24h Active Ferrous Sulfate 325 (65 Fe) MG Orally Once a day 1 tablet 24h Feb, 30 day(s) Active RESULTS No Results PROCEDURES Procedure Date Ordered Result Body Site LTD ORAL EVALUATION - PROBLEM FOCUS November 29, 2017 INTRAORL-PERIAPICAL 1 FILM 84049 November 29, 2017 EXTRAC ERUPTED TOOTH/EXPOSED ROOT November 29, 2017 BITEWING - SINGLE FILM November 29, 2017 INSTRUCTIONS MEDICATIONS ADMINISTERED No Known Medications MEDICAL (GENERAL) HISTORY Type Description Date Medical History asthma Medical History chronic obstructive pulmonary disease (COPD) Surgical History section x3 Surgical History exploratory laparoscopy Surgical History tubal ligation
--- OUTSIDE RECORDS SUMMARY | 2018-07-28 15:43 | XMS REPORT ---
Author Author ROBI GONZALEZ Organization [facility] Address [address] [place] [address] Care Team Providers Care User Experience Designer Name Role Phone ROBI GONZALEZ Unavailable PROBLEMS Type Condition ICD9-CM Code PCM13-ZK Code Onset Dates Condition Status SNOMED Code Problem Essential hypertension I10 Active 74212388 Problem Benign essential tremor G25.0 Active 286380313 Problem Mild intermittent asthma with (acute) exacerbation J45.21 Active 341133778 Problem Posttraumatic stress disorder F43.10 Active 23380942 Problem Iron deficiency anemia secondary to inadequate dietary iron intake D50.8 Active 617988082 Problem Sciatica, right side M54.31 Active 71932798 Problem Unspecified mood [affective] disorder F39 Active 79498726 Problem Moderate episode of recurrent major depressive disorder F33.1 Active 763852857 ALLERGIES No Information ENCOUNTERS Encounter Location Date Diagnosis [facility] [address] [place] [address] 65686- 7934 Mar, [facility] [id number] [place] [address] 26209- 5169 Mar, [facility] [address] [place] [address] 67419- 8061 Feb, Mild intermittent asthma with (acute) exacerbation J45.21 [facility] [address] [place] [address] 18124- 5970 Feb, Essential hypertension I10 and Moderate episode of recurrent major depressive disorder F33.1 [facility] [id number] [place] [address] 25803- 9147 Feb, Unspecified mood [affective] disorder F39 and Posttraumatic stress disorder F43.10 [facility] [id number] [place] [address] 95364- 4227 Feb, [facility] [address] [place] [address] 40338- 1016 Jan, Unspecified mood [affective] disorder F39 and Posttraumatic stress disorder F43.10 [facility] [id number] [place] [address] 51988- 0461 Jan, Sciatica, right side M54.31 ; Moderate episode of recurrent major depressive disorder F33.1 ; Non-seasonal allergic rhinitis, unspecified trigger J30.89 ; Mild intermittent asthma with (acute) exacerbation J45.21 and BMI 50.0-59.9, adult Z68.43 [place] [id number] [place] [address] 90693- 3840 Jan, Unspecified mood [affective] disorder F39 [place] [id number] [place] [address] 66867- 8447 December, Unspecified mood [affective] disorder F39 [facility] [id number] [place] [address] 91558- 8201 December, [facility] [id number] [place] [address] 51134- 4754 Nov, Essential hypertension I10 [facility] [id number] [place] [address] [id number] Nov, Dental examination Z01.20 and Dental caries K02.9 [facility] [id number] [place] [address] 89654- 2014 Nov, [facility] [id number] [place] [address] 47210- 0414 Nov, Moderate episode of recurrent major depressive disorder F33.1 ; Essential hypertension I10 and BMI 50.0-59.9, adult Z68.43 [facility] [id number] [place] [address] 30423- 5460 Oct, [facility] [id number] [place] [address] 97858- 0659 Oct, [facility] [address] [place] [address] 26671 -9357 Sep, Acute non-recurrent maxillary sinusitis J01.00 and BMI 50.0 -59.9, adult Z68.43 [facility] IN [facility] [id number] [place] [address] 49993 -7789 Sep, Acute non-recurrent maxillary sinusitis J01.00 and BMI 50.0 -59.9, adult Z68.43 [facility] [id number] [place] [address] 11150- 4978 Jun, Acute suppurative otitis media of right ear without spontaneous rupture of tympanic membrane, recurrence not specified H66.001 ; BMI 50.0-59.9, adult Z68.43 and BMI 60.0-69.9, adult Z68.44 [place] [id number] [place] [address] 09897- 2525 Jun, [place] [address] 22833- 0484 May, [place] [address] 07809- 2916 Apr, Benign essential tremor G25.0 [place] [id number] [place] [address] 00939- 0279 Apr, [place] [id number] [place] [address] 37401- 4371 Apr, Benign paroxysmal vertigo of both ears H81.13 [place] [id number] [place] [address] 15917- 9431 Mar, [place] [address] 47551- 5606 Feb, Sciatica, right side M54.31 ; Essential hypertension I10 ; Iron deficiency anemia secondary to inadequate dietary iron intake D50.8 and Benign essential tremor G25.0 [place] [address] 66166- 2546 Feb, Benign essential tremor G25.0 and Essential hypertension I10 [facility] [address] [facility] [id number] [place] [address]- 9636 Feb, Benign essential tremor G25.0 and Essential hypertension I10 IMMUNIZATIONS No Known Immunizations SOCIAL HISTORY Never Assessed REASON FOR VISIT med refill PLAN OF CARE VITAL SIGNS MEDICATIONS Medication [...]
--- OUTSIDE RECORDS SUMMARY | 2018-07-28 15:43 | XMS REPORT ---
Author Author ROBI GONZALEZ Organization [facility] [place] Address [address] [place] [address] Care Team Providers Care Director Of Marketing [employer] Performance Ads Name Role Phone ROBI GONZALEZ Unavailable PROBLEMS Type Condition ICD9-CM Code FGR20-BR Code Onset Dates Condition Status SNOMED Code Problem Essential hypertension I10 Active 56128564 Problem Benign essential tremor G25.0 Active 558562133 Problem Mild intermittent asthma with (acute) exacerbation J45.21 Active 191010368 Problem Posttraumatic stress disorder F43.10 Active 85794965 Problem Iron deficiency anemia secondary to inadequate dietary iron intake D50.8 Active 726144670 Problem Sciatica, right side M54.31 Active 78600322 Problem Unspecified mood [affective] disorder F39 Active 14664633 Problem Moderate episode of recurrent major depressive disorder F33.1 Active 067460155 ALLERGIES No Information ENCOUNTERS Encounter Location Date Diagnosis [facility] [place] [address] [place] [address] 55163- 7866 Mar, [facility] [place] [id number] [place] [address] 08487- 9063 Mar, [facility] [place] [address] [place] [address] 00652- 3464 Feb, Mild intermittent asthma with (acute) exacerbation J45.21 [facility] [place] [address] [place] [address] 27778- 6161 Feb, Essential hypertension I10 and Moderate episode of recurrent major depressive disorder F33.1 [facility] [place] [id number] [place] [address] 57462- 3246 Feb, Unspecified mood [affective] disorder F39 and Posttraumatic stress disorder F43.10 [facility] [place] [id number] [place] [address] 23057- 5757 Feb, [facility] [place] [address] [place] [address] 92196- 7678 Jan, Unspecified mood [affective] disorder F39 and Posttraumatic stress disorder F43.10 [facility] [place] [id number] [place] [address] 61109- 9044 Jan, Sciatica, right side M54.31 ; Moderate episode of recurrent major depressive disorder F33.1 ; Non-seasonal allergic rhinitis, unspecified trigger J30.89 ; Mild intermittent asthma with (acute) exacerbation J45.21 and BMI 50.0-59.9, adult Z68.43 [place] [id number] [place] [address] 86653- 2708 Jan, Unspecified mood [affective] disorder F39 [place] [id number] [place] [address] 42542- 9977 December, Unspecified mood [affective] disorder F39 [facility] [place] [id number] [place] [address] 36503- 1941 December, [facility] [place] [id number] [place] [address] 44751- 2862 Nov, Essential hypertension I10 [facility] [id number] [place] [address] [id number] Nov, Dental examination Z01.20 and Dental caries K02.9 [facility] [place] [id number] [place] [address] 46711- 3276 Nov, [facility] [place] [id number] [place] [address] 63155- 8222 Nov, Moderate episode of recurrent major depressive disorder F33.1 ; Essential hypertension I10 and BMI 50.0-59.9, adult Z68.43 [facility] [place] [id number] [place] [address] 74548- 9154 Oct, [facility] [place] [id number] [place] [address] 75341- 7517 Oct, [facility] [address] [place] [address] 73792 -8763 Sep, Acute non-recurrent maxillary sinusitis J01.00 and BMI 50.0 -59.9, adult Z68.43 [facility] [id number] [place] [address] 03838 -5267 Sep, Acute non-recurrent maxillary sinusitis J01.00 and BMI 50.0 -59.9, adult Z68.43 [facility] [place] [id number] [place] [address] 52667- 9018 Jun, Acute suppurative otitis media of right ear without spontaneous rupture of tympanic membrane, recurrence not specified H66.001 ; BMI 50.0-59.9, adult Z68.43 and BMI 60.0-69.9, adult Z68.44 [place] [id number] [place] [address] 00338- 4651 Jun, [place] [address] 40493- 4738 May, [place] [address] 76615- 8574 Apr, Benign essential tremor G25.0 [place] [id number] [place] [address] 43391- 4797 Apr, [place] [id number] [place] [address] 91577- 5766 Apr, Benign paroxysmal vertigo of both ears H81.13 [place] [id number] [place] [address] 15756- 4875 Mar, [place] [address] 61142- 1502 Feb, Sciatica, right side M54.31 ; Essential hypertension I10 ; Iron deficiency anemia secondary to inadequate dietary iron intake D50.8 and Benign essential tremor G25.0 [place] [address] 63348- 9881 Feb, Benign essential tremor G25.0 and Essential hypertension I10 [facility] [place] [address] [facility] [id number] [place] [address]- 0916 Feb, Benign essential tremor G25.0 and Essential hypertension I10 IMMUNIZATIONS No Known Immunizations SOCIAL HISTORY Never Assessed REASON FOR VISIT make an apt PLAN OF CARE VITAL SIGNS MEDICATIONS Unknown Medications RESULTS No Results PROCEDURES No Known procedures INSTRUCTIONS MEDICATIONS ADMINISTERED No Known Medications MEDICAL (GENERAL) HISTORY Type Description Date Medical History asthma Medical History chronic obstructive pulmonary disease (COPD) Surgical History section x3 Surgical History exploratory laparoscopy Surgical History tubal ligation
--- OUTSIDE RECORDS SUMMARY | 2018-07-28 15:43 | XMS REPORT ---
Author Author ROBI GONZALEZ Organization [facility] Address [address] [place] [address] Care Team Providers Care Tipple Boss Name Role Phone ROBI GONZALEZ Unavailable PROBLEMS Type Condition ICD9-CM Code DNO91-QZ Code Onset Dates Condition Status SNOMED Code Problem Unspecified mood [affective] disorder F39 Active 45815760 Problem Moderate episode of recurrent major depressive disorder F33.1 Active 011180294 Problem Essential hypertension I10 Active 98106544 Problem Benign essential tremor G25.0 Active 313781012 Problem Iron deficiency anemia secondary to inadequate dietary iron intake D50.8 Active 251429242 Problem Sciatica, right side M54.31 Active 27881971 ALLERGIES No Information ENCOUNTERS Encounter Location Date Diagnosis [facility] [id number] [place] [address] 45607- 4077 Jan, [facility] [address] 14501- 1484 December, [facility] [id number] [place] [address] 61979- 6628 December, Unspecified mood [affective] disorder F39 [facility] [id number] [place] [address] 64342- 4339 December, [facility] [id number] [place] [address] 29290- 5101 Nov, Essential hypertension I10 [facility] [address] [id number] Nov, Dental examination Z01.20 and Dental caries K02.9 [facility] [id number] [place] [address] 02317- 6582 Nov, [facility] [address] [place] [address]- 0588 Nov, Moderate episode of recurrent major depressive disorder F33.1 [facility] [id number] [place] [address] 99834- 7488 Oct, [facility] [id number] [place] [address] 34745- 6518 Oct, [facility] WALK IN [facility] [address] 78874 -1191 Sep, Acute non-recurrent maxillary sinusitis J01.00 and BMI 50.0 -59.9, adult Z68.43 [facility] [address] 04331 -8178 Sep, Acute non-recurrent maxillary sinusitis J01.00 and BMI 50.0 -59.9, adult Z68.43 [place] [address] 69705- 3031 Jun, Acute suppurative otitis media of right ear without spontaneous rupture of tympanic membrane, recurrence not specified H66.001 ; BMI 50.0-59.9, adult Z68.43 and BMI 60.0-69.9, adult Z68.44 [place] [id number] [place] [address] 68566- 9054 Jun, [place] [id number] [place] [address] 41539- 4234 May, [place] [address] 61466- 8470 Apr, Benign essential tremor G25.0 [place] [id number] [place] [address] 70865- 6244 Apr, [place] [address] 07767- 4921 Apr, Benign paroxysmal vertigo of both ears H81.13 [place] [address] 95465- 4448 Mar, [facility] [address] [facility] [id number] [place] [address]- 4478 Feb, Sciatica, right side M54.31 ; Essential hypertension I10 ; Iron deficiency anemia secondary to inadequate dietary iron intake D50.8 and Benign essential tremor G25.0 [place] [address] [place] [id number] [address]- 3976 Feb, Benign essential tremor G25.0 and Essential hypertension I10 [place] [address] [place] [id number] [address]- 0847 Feb, Benign essential tremor G25.0 and Essential hypertension I10 IMMUNIZATIONS No Known Immunizations SOCIAL HISTORY Never Assessed REASON FOR VISIT Repository refills PLAN OF CARE VITAL SIGNS MEDICATIONS Unknown Medications RESULTS No Results PROCEDURES No Known procedures INSTRUCTIONS MEDICATIONS ADMINISTERED No Known Medications MEDICAL (GENERAL) HISTORY Type Description Date Medical History asthma Medical History chronic obstructive pulmonary disease (COPD) Surgical History section x3 Surgical History exploratory laparoscopy Surgical History tubal ligation
--- OUTSIDE RECORDS SUMMARY | 2018-07-28 15:43 | XMS REPORT ---
Author Author ROBI GONZALEZ Organization [facility] Address [address] [place] [address] Care Team Providers Care Director Advertising Name Role Phone ROBI GONZALEZ Unavailable PROBLEMS Type Condition ICD9-CM Code VAD40-CY Code Onset Dates Condition Status SNOMED Code Problem Essential hypertension I10 Active 21489967 Problem Benign essential tremor G25.0 Active 150243123 Problem Mild intermittent asthma with (acute) exacerbation J45.21 Active 428825477 Problem Posttraumatic stress disorder F43.10 Active 70708936 Problem Iron deficiency anemia secondary to inadequate dietary iron intake D50.8 Active 360263801 Problem Sciatica, right side M54.31 Active 12254240 Problem Unspecified mood [affective] disorder F39 Active 70775021 Problem Moderate episode of recurrent major depressive disorder F33.1 Active 216605524 ALLERGIES No Information ENCOUNTERS Encounter Location Date Diagnosis [facility] [id number] [place] [address] 73726- 8505 Mar, [facility] [id number] [place] [address] 60952- 2475 Mar, [facility] [id number] [place] [address] 81521- 9856 Feb, Mild intermittent asthma with (acute) exacerbation J45.21 [facility] [id number] [place] [address] 81585- 0460 Feb, Essential hypertension I10 and Moderate episode of recurrent major depressive disorder F33.1 [facility] [id number] [place] [address] 50401- 0135 Feb, Unspecified mood [affective] disorder F39 and Posttraumatic stress disorder F43.10 [facility] [id number] [place] [address] 29773- 7237 Feb, [facility] [id number] [place] [address] 61868- 4274 Jan, Unspecified mood [affective] disorder F39 and Posttraumatic stress disorder F43.10 [facility] [id number] [place] [address] 09784- 9274 Jan, Sciatica, right side M54.31 ; Moderate episode of recurrent major depressive disorder F33.1 ; Non-seasonal allergic rhinitis, unspecified trigger J30.89 ; Mild intermittent asthma with (acute) exacerbation J45.21 and BMI 50.0-59.9, adult Z68.43 [place] [id number] [place] [address] 96055- 7199 Jan, Unspecified mood [affective] disorder F39 [place] [facility] [id number] [place] [address] 38497- 1671 December, Unspecified mood [affective] disorder F39 [facility] [id number] [place] [address] 47877- 1712 December, [facility] [id number] [place] [address] 65341- 3674 Nov, Essential hypertension I10 [facility] [id number] [place] [address] [id number] Nov, Dental examination Z01.20 and Dental caries K02.9 [facility] [id number] [place] [address] 70237- 5475 Nov, [facility] [id number] [place] [address] 68029- 3773 Nov, Moderate episode of recurrent major depressive disorder F33.1 ; Essential hypertension I10 and BMI 50.0-59.9, adult Z68.43 [facility] [id number] [place] [address] 87212- 0286 Oct, [facility] [id number] [place] [address] 76283- 8371 Oct, [facility] [id number] [place] [address] 96066 -2459 Sep, Acute non-recurrent maxillary sinusitis J01.00 and BMI 50.0 -59.9, adult Z68.43 [facility] [id number] [place] [address] 92764 -6993 Sep, Acute non-recurrent maxillary sinusitis J01.00 and BMI 50.0 -59.9, adult Z68.43 [facility] [id number] [place] [address] 73439- 6069 Jun, Acute suppurative otitis media of right ear without spontaneous rupture of tympanic membrane, recurrence not specified H66.001 ; BMI 50.0-59.9, adult Z68.43 and BMI 60.0-69.9, adult Z68.44 [place] [id number] [place] [address] 54853- 2887 Jun, [place] [address] 50470- 0731 May, [facility] [facility] [address] 71206- 6176 Apr, Benign essential tremor G25.0 [facility] [id number] [place] [address] 73967- 7776 Apr, [facility] [id number] [place] [address] 99632- 5729 Apr, Benign paroxysmal vertigo of both ears H81.13 [facility] [id number] [place] [address] 09418- 7032 Mar, [facility] [facility] [address] 17393- 1217 Feb, Sciatica, right side M54.31 ; Essential hypertension I10 ; Iron deficiency anemia secondary to inadequate dietary iron intake D50.8 and Benign essential tremor G25.0 [place] [address] 82827- 5067 Feb, Benign essential tremor G25.0 and Essential hypertension I10 [facility] [address] [facility] [id number] [place] [address] 6[address] Feb, Benign essential tremor G25.0 and Essential hypertension I10 IMMUNIZATIONS No Known Immunizations SOCIAL HISTORY Never Assessed REASON FOR VISIT BH/AT phone response PLAN OF CARE VITAL SIGNS MEDICATIONS Unknown Medications RESULTS No Results PROCEDURES No Known procedures INSTRUCTIONS MEDICATIONS ADMINISTERED No Known Medications MEDICAL (GENERAL) HISTORY Type Description Date Medical History asthma Medical History chronic obstructive pulmonary disease (COPD) Surgical History section x3 Surgical History exploratory laparoscopy Surgical History tubal ligation
--- OUTSIDE RECORDS SUMMARY | 2018-07-28 15:43 | XMS REPORT ---
Author Author ROBI GONZALEZ Organization [facility] Address [address] [place] [address] Care Team Providers Care Wic Site Coordinator Name Role Phone ROBI GONZALEZ Unavailable PROBLEMS Type Condition ICD9-CM Code OHN90-PI Code Onset Dates Condition Status SNOMED Code Problem Essential hypertension I10 Active 52308429 Problem Benign essential tremor G25.0 Active 664032977 Problem Mild intermittent asthma with (acute) exacerbation J45.21 Active 234198607 Problem Posttraumatic stress disorder F43.10 Active 14687877 Problem Iron deficiency anemia secondary to inadequate dietary iron intake D50.8 Active 717613691 Problem Sciatica, right side M54.31 Active 26551372 Problem Unspecified mood [affective] disorder F39 Active 50889747 Problem Moderate episode of recurrent major depressive disorder F33.1 Active 750116571 ALLERGIES No Information ENCOUNTERS Encounter Location Date Diagnosis [facility] [address] [place] [address] 45832- 2941 Mar, [facility] [address] [place] [address] 20611- 2677 Feb, [facility] [address] [place] [address] 82222- 3154 Feb, Unspecified mood [affective] disorder F39 and Posttraumatic stress disorder F43.10 [facility] [address] [address] 5598 Feb, [facility] [id number] [place] [address] 47140- 8186 Jan, Unspecified mood [affective] disorder F39 and Posttraumatic stress disorder F43.10 [facility] [address] [address]- 6863 Jan, Sciatica, right side M54.31 ; Moderate episode of recurrent major depressive disorder F33.1 ; Non-seasonal allergic rhinitis, unspecified trigger J30.89 ; Mild intermittent asthma with (acute) exacerbation J45.21 and BMI 50.0-59.9, adult Z68.43 [facility] [id number] [place] [address] 39660- 0825 05 Jan, 2018 Unspecified mood [affective] disorder F39 [facility] [address] 74273- 0054 December, Unspecified mood [affective] disorder F39 [place] [address] 25467- 3714 December, [facility] [id number] [place] [address] 50104- 0150 Nov, Essential hypertension I10 [facility] [address] [id number] Nov, Dental examination Z01.20 and Dental caries K02.9 [facility] [id number] [place] [address] 08660- 3415 Nov, [facility] [facility] [address] 51118- 2746 Nov, Moderate episode of recurrent major depressive disorder F33.1 ; Essential hypertension I10 and BMI 50.0-59.9, adult Z68.43 [facility] [id number] [place] [address] 25895- 2167 Oct, [facility] [id number] [place] [address] 17176- 2807 Oct, [facility] [address] 06935 -9364 Sep, Acute non-recurrent maxillary sinusitis J01.00 and BMI 50.0 -59.9, adult Z68.43 [facility] [id number] [place] [address] 70297 -1633 Sep, Acute non-recurrent maxillary sinusitis J01.00 and BMI 50.0 -59.9, adult Z68.43 [place] [address] 03678- 1469 Jun, Acute suppurative otitis media of right ear without spontaneous rupture of tympanic membrane, recurrence not specified H66.001 ; BMI 50.0-59.9, adult Z68.43 and BMI 60.0-69.9, adult Z68.44 [facility] [facility] [address] 65007- 0067 Jun, [place] [address] 17809- 1536 May, [facility] [facility] [address] 04495- 4835 Apr, Benign essential tremor G25.0 [facility] [address] 24591- 5479 Apr, [facility] [id number] [place] [address] 57768- 5614 Apr, Benign paroxysmal vertigo of both ears H81.13 [facility] [id number] [place] [address] 13442- 6342 Mar, [facility] [id number] [place] [address] 76884- 4504 Feb, Sciatica, right side M54.31 ; Essential hypertension I10 ; Iron deficiency anemia secondary to inadequate dietary iron intake D50.8 and Benign essential tremor G25.0 [facility] [id number] [place] [address] 67577- 7123 Feb, Benign essential tremor G25.0 and Essential hypertension I10 [facility] [id number] [place] [address] 80965- 2754 Feb, Benign essential tremor G25.0 and Essential hypertension I10 IMMUNIZATIONS No Known Immunizations SOCIAL HISTORY Never Assessed REASON FOR VISIT refill request PLAN OF CARE VITAL SIGNS MEDICATIONS Medication Instructions Dosage Frequency Start Date End Date Duration Status Propranolol HCl 10 mg Orally Twice a day 1 tablet 12h 30 Active RESULTS No Results PROCEDURES No Known procedures INSTRUCTIONS MEDICATIONS ADMINISTERED No Known Medications MEDICAL (GENERAL) HISTORY Type Description Date Medical History asthma Medical History chronic obstructive pulmonary disease (COPD) Surgical History section x3 Surgical History exploratory laparoscopy Surgical History tubal ligation
--- OUTSIDE RECORDS SUMMARY | 2018-07-28 15:43 | XMS REPORT ---
Author Author ROBI GONZALEZ Organization [facility] Address [address] [place] [address] Care Team Providers Care Delivery Associate Name Role Phone ROBI GONZALEZ Unavailable PROBLEMS Type Condition ICD9-CM Code IUZ88-TH Code Onset Dates Condition Status SNOMED Code Problem Sciatica, right side M54.31 Active 73034764 Problem Iron deficiency anemia secondary to inadequate dietary iron intake D50.8 Active 976057828 Problem Essential hypertension I10 Active 69355159 Problem Benign essential tremor G25.0 Active 241669531 ALLERGIES No Information ENCOUNTERS Encounter Location Date Diagnosis [facility] [id number] [place] [address] 27301- 8719 Oct, [facility] [id number] [place] [address] 71525- 0054 Oct, [facility] [id number] [place] [address] 17669 -5889 Sep, Acute non-recurrent maxillary sinusitis J01.00 and BMI 50.0 -59.9, adult Z68.43 [facility] [id number] [place] [address] 41033 -6428 26 Sep, 2017 Acute non-recurrent maxillary sinusitis J01.00 and BMI 50.0 -59.9, adult Z68.43 [facility] [id number] [place] [address] 70072- 3469 Jun, Acute suppurative otitis media of right ear without spontaneous rupture of tympanic membrane, recurrence not specified H66.001 ; BMI 50.0-59.9, adult Z68.43 and BMI 60.0-69.9, adult Z68.44 [facility] [id number] [place] [address] 42988- 1016 Jun, [place] [address] [place] [address] 15861- 4259 May, [place] [id number] [place] [address] 06452- 8801 Apr, Benign essential tremor G25.0 [facility] [facility] [id number] [place] [address] 49496- 6961 Apr, [facility] [facility] [id number] [place] [address] 72075- 6834 Apr, Benign paroxysmal vertigo of both ears H81.13 [facility] [id number] [place] [address] 54806- 4642 Mar, [facility] [id number] [place] [address] 53631- 7077 Feb, Sciatica, right side M54.31 ; Essential hypertension I10 ; Iron deficiency anemia secondary to inadequate dietary iron intake D50.8 and Benign essential tremor G25.0 [place] [id number] [place] [address] 55083- 4776 Feb, Benign essential tremor G25.0 and Essential hypertension I10 [facility] [id number] [place] [address] 18709- 6280 Feb, Benign essential tremor G25.0 and Essential hypertension I10 IMMUNIZATIONS No Known Immunizations SOCIAL HISTORY Never Assessed REASON FOR VISIT Lab (walk-in) PLAN OF CARE VITAL SIGNS MEDICATIONS Unknown Medications RESULTS Name Result Date Reference Range TSH 2017-02-08 TSH 2.020 0.450-4.500 CBC 2017-02-08 WBC 4.8 3.4-10.8 RBC 4.12 3.77-5.28 Hemoglobin 10.9 11.1-15.9 Hematocrit 35.3 34.0-46.6 MCV 86 79-97 MCH 26.5 26.6-33.0 MCHC 30.9 31.5-35.7 RDW 14.5 12.3-15.4 Platelets 327 150-379 Neutrophils 73 Lymphs 16 Monocytes 10 Eos 1 Basos 0 Neutrophils (Absolute) 3.4 1.4-7.0 Lymphs (Absolute) 0.8 0.7-3.1 Monocytes(Absolute) 0.5 0.1-0.9 Eos (Absolute) 0.1 0.0-0.4 Baso (Absolute) 0.0 0.0-0.2 Immature Granulocytes 0 Immature Grans (Abs) 0.0 0.0-0.1 LIPID PANEL 2017-02-08 Cholesterol, Total 164 100-199 Triglycerides 100 0-149 HDL Cholesterol 68 >39 VLDL Cholesterol Chase 20 5-40 LDL Cholesterol Calc 76 0-99 CMP 2017-02-08 Glucose, Serum 93 65-99 BUN 16 6-24 Creatinine, Serum 0.82 0.57-1.00 eGFR If NonAfricn Am 90 >59 eGFR If Africn Am 104 >59 BUN/Creatinine Ratio 20 9-23 Sodium, Serum 139 134-144 Potassium, Serum 5.1 3.5-5.2 Chloride, Serum 103 96-106 Carbon Dioxide, Total 23 18-29 Calcium, Serum 8.9 8.7-10.2 Protein, Total, Serum 6.0 6.0-8.5 Albumin, Serum 3.6 3.5-5.5 Globulin, Total 2.4 1.5-4.5 A/G Ratio 1.5 1.2-2.2 Bilirubin, Total 0.3 0.0-1.2 Alkaline Phosphatase, S 109 39-117 AST (SGOT) 19 0-40 ALT (SGPT) 26 0-32 PROCEDURES Procedure Date Ordered Result Body Site ASSAY THYROID STIM HORMONE February 08, 2017 COMPLETE CBC W/AUTO DIFF WBC February 08, 2017 LIPID PANEL February 08, 2017 COMPREHEN METABOLIC PANEL February 08, 2017 VENIPUNCT, ROUTINE* February 08, 2017 INSTRUCTIONS MEDICATIONS ADMINISTERED No Known Medications MEDICAL (GENERAL) HISTORY Type Description Date Medical History asthma Medical History chronic obstructive pulmonary disease (COPD) Surgical History section x3 Surgical History exploratory laparoscopy Surgical History tubal ligation
--- OUTSIDE RECORDS SUMMARY | 2018-07-28 15:44 | XMS REPORT ---
Author Author ROBI GONZALEZ Organization [facility] Address [address] [place] [address] Care Team Providers Care Mortgage Or Loan Underwriter Name Role Phone ROBI GONZALEZ Unavailable PROBLEMS Type Condition ICD9-CM Code CWU76-OE Code Onset Dates Condition Status SNOMED Code Problem Unspecified mood [affective] disorder F39 Active 54501162 Problem Moderate episode of recurrent major depressive disorder F33.1 Active 360460827 Problem Essential hypertension I10 Active 69838884 Problem Benign essential tremor G25.0 Active 322923939 Problem Iron deficiency anemia secondary to inadequate dietary iron intake D50.8 Active 605571029 Problem Sciatica, right side M54.31 Active 45080166 ALLERGIES No Information ENCOUNTERS Encounter Location Date Diagnosis [facility] [id number] [place] [address] 50829- 3384 Jan, [facility] [address] 24024- 1251 December, Unspecified mood [affective] disorder F39 [facility] [id number] [place] [address] 25699- 7994 December, [facility] [id number] [place] [address] 05959- 8281 Nov, Essential hypertension I10 [facility] [id number] [place] [address] [id number] Nov, Dental examination Z01.20 and Dental caries K02.9 [facility] [id number] [place] [address] 00944- 1963 Nov, [facility] [id number] [place] [address] 71415- 4471 Nov, Moderate episode of recurrent major depressive disorder F33.1 ; Essential hypertension I10 and BMI 50.0-59.9, adult Z68.43 [facility] [id number] [place] [address] 40651- 7425 Oct, [place] [address] 75093- 6410 Oct, [facility] [id number] [place] [address] 27075 -3400 Sep, Acute non-recurrent maxillary sinusitis J01.00 and BMI 50.0 -59.9, adult Z68.[address] [facility] [id number] [place] [address] 47308 -3399 Sep, Acute non-recurrent maxillary sinusitis J01.00 and BMI 50.0 -59.9, adult Z68.43 [place] [id number] [place] [address] 77861- 3895 Jun, Acute suppurative otitis media of right ear without spontaneous rupture of tympanic membrane, recurrence not specified H66.001 ; BMI 50.0-59.9, adult Z68.43 and BMI 60.0-69.9, adult Z68.44 [place] [id number] [place] [address] 79137- 4070 Jun, [place] [id number] [place] [address] 37973- 0817 May, [place] [id number] [place] [address] 58522- 7023 Apr, Benign essential tremor G25.0 [place] [id number] [place] [address] 55145- 2517 Apr, [place] [address] 40358- 9553 Apr, Benign paroxysmal vertigo of both ears H81.13 [facility] [id number] [place] [address] 02458- 6023 Mar, [place] [address] [facility] [id number] [address]- 3805 Feb, Sciatica, right side M54.31 ; Essential hypertension I10 ; Iron deficiency anemia secondary to inadequate dietary iron intake D50.8 and Benign essential tremor G25.0 [place] [facility] [id number] [address]- 0143 Feb, Benign essential tremor G25.0 and Essential hypertension I10 [place] [facility] [id number] [address]- 9640 Feb, Benign essential tremor G25.0 and Essential hypertension I10 IMMUNIZATIONS No Known Immunizations SOCIAL HISTORY Never Assessed REASON FOR VISIT Medication refill request PLAN OF CARE VITAL SIGNS MEDICATIONS Unknown Medications RESULTS No Results PROCEDURES No Known procedures INSTRUCTIONS MEDICATIONS ADMINISTERED No Known Medications MEDICAL (GENERAL) HISTORY Type Description Date Medical History asthma Medical History chronic obstructive pulmonary disease (COPD) Surgical History section x3 Surgical History exploratory laparoscopy Surgical History tubal ligation
--- OUTSIDE RECORDS SUMMARY | 2018-07-28 15:44 | XMS REPORT ---
Author Author ROBI GONZALEZ Organization [facility] Address [address] [place] [address] Care Team Providers Care Project Scheduler Name Role Phone ROBI GONZALEZ Unavailable PROBLEMS Type Condition ICD9-CM Code NYA52-BH Code Onset Dates Condition Status SNOMED Code Problem Sciatica, right side M54.31 Active 02970866 Problem Iron deficiency anemia secondary to inadequate dietary iron intake D50.8 Active 322971808 Problem Essential hypertension I10 Active 70014892 Problem Benign essential tremor G25.0 Active 923921835 ALLERGIES Substance Reaction Event Type Date Status Percocet itching Drug Allergy Feb, Active ENCOUNTERS Encounter Location Date Diagnosis [facility] [id number] [place] [address] 14901- 7399 Oct, [facility] [id number] [place] [address] 16890- 0698 Oct, [facility] [id number] [place] [address] 02634 -0923 Sep, Acute non-recurrent maxillary sinusitis J01.00 and BMI 50.0 -59.9, adult Z68.43 [facility] IN [facility] [id number] [place] [address] 09882 -1890 Sep, Acute non-recurrent maxillary sinusitis J01.00 and BMI 50.0 -59.9, adult Z68.43 [facility] [address] [address]- [address] Jun, Acute suppurative otitis media of right ear without spontaneous rupture of tympanic membrane, recurrence not specified H66.001 ; BMI 50.0-59.9, adult Z68.43 and BMI 60.0-69.9, adult Z68.44 [facility] [address] [address] Jun, [place] [id number] [place] [address] 77751- 0116 May, [facility] [id number] [place] [address] 65227- 1573 Apr, Benign essential tremor G25.0 [place] [id number] [place] [address] 15802- 1369 Apr, [place] [id number] [place] [address] 72434- 8694 Apr, Benign paroxysmal vertigo of both ears H81.13 [place] [id number] [place] [address] 26644- 0809 Mar, [place] [id number] [place] [address] 61547- 7813 Feb, Sciatica, right side M54.31 ; Essential hypertension I10 ; Iron deficiency anemia secondary to inadequate dietary iron intake D50.8 and Benign essential tremor G25.0 [place] [id number] [place] [address] 68856- 4688 Feb, Benign essential tremor G25.0 and Essential hypertension I10 [place] [address] [place] [address] 71211- 3920 Feb, Benign essential tremor G25.0 and Essential hypertension I10 IMMUNIZATIONS No Known Immunizations SOCIAL HISTORY Never Assessed REASON FOR VISIT sciatic nerve pain--DBennettRN, tingling in right 2nd toe, constant x2 weeks, left neck pain x1 week PLAN OF CARE Activity Details Follow Up 3 Months Reason: VITAL SIGNS Height 63 in 2017-02-21 Weight 303 lbs 2017-02-21 Temperature 98.4 degrees Fahrenheit 2017-02-21 Heart Rate 80 bpm 2017-02-21 Respiratory Rate 20 2017-02-21 BMI 53.67 kg/m2 2017-02-21 Blood pressure systolic 136 mmHg 2017-02-21 Blood pressure diastolic 90 mmHg 2017-02-21 MEDICATIONS Medication Instructions Dosage Frequency Start Date End Date Duration Status Aspirin 325 MG Orally twice a day as needed 1 tablet Active Naproxen 500 mg Orally every 12 hrs 1 tablet as needed 12h Feb, Active Propranolol HCl 10 mg Orally Twice a day 1 tablet 12h Feb, 30 day(s) Active ProAir HFA 108 (90 Base) MCG/ACT Inhalation every 4 hrs 2 puffs as needed 4h Active Hydrochlorothiazide 25 MG Orally Once a day 1 tablet in the morning 24h Feb, 90 days Active Ferrous Sulfate 325 (65 Fe) MG Orally Once a day 1 tablet 24h Feb, 30 day(s) Active Gabapentin 300 MG Orally Three times a day 1 capsule 8h Feb, 30 day(s) Active RESULTS No Results PROCEDURES No Known procedures INSTRUCTIONS MEDICATIONS ADMINISTERED No Known Medications MEDICAL (GENERAL) HISTORY Type Description Date Medical History asthma Medical History chronic obstructive pulmonary disease (COPD) Surgical History section x3 Surgical History exploratory laparoscopy Surgical History tubal ligation
--- OUTSIDE RECORDS SUMMARY | 2018-07-28 15:44 | XMS REPORT ---
Author Author BREANNE AIKEN Organization [facility] Address [address] [place] [address] Care Team Providers Care Stencil Inspector Name Role Phone BREANNE AIKEN Unavailable PROBLEMS Type Condition ICD9-CM Code UNR05-IE Code Onset Dates Condition Status SNOMED Code Problem Unspecified mood [affective] disorder F39 Active 43770105 Problem Moderate episode of recurrent major depressive disorder F33.1 Active 708340048 Problem Essential hypertension I10 Active 74919803 Problem Benign essential tremor G25.0 Active 964706816 Problem Iron deficiency anemia secondary to inadequate dietary iron intake D50.8 Active 890104648 Problem Sciatica, right side M54.31 Active 09499488 ALLERGIES Substance Reaction Event Type Date Status Percocet itching Drug Allergy Jun, Active ENCOUNTERS Encounter Location Date Diagnosis [facility] [id number] [place] [address] 48219- 3988 Jan, [facility] [id number] [place] [address] 05722- 8974 December, Unspecified mood [affective] disorder F39 [facility] [id number] [place] [address] 92122- 5740 December, [facility] [id number] [place] [address] 39924- 7490 Nov, Essential hypertension I10 [facility] [address] [place] [address] [id number] Nov, Dental examination Z01.20 and Dental caries K02.9 [facility] [id number] [place] [address] 92626- 1032 Nov, [facility] [address] 42112- 9312 Nov, Moderate episode of recurrent major depressive disorder F33.1 ; Essential hypertension I10 and BMI 50.0-59.9, adult Z68.43 [place] [id number] [place] [address] 03065- 9925 Oct, [place] [id number] [place] [address] 94890- 0598 Oct, [facility] [place] [address] 31253 [address]6979 Sep, Acute non-recurrent maxillary sinusitis J01.00 and BMI 50.0 -59.9, adult Z68.43 [facility] [place] [id number] [place] [address] 96749 -3825 26 Sep, 2017 Acute non-recurrent maxillary sinusitis J01.00 and BMI 50.0 -59.9, adult Z68.43 [place] [id number] [place] [address] 75006- 7166 Jun, Acute suppurative otitis media of right ear without spontaneous rupture of tympanic membrane, recurrence not specified H66.001 ; BMI 50.0-59.9, adult Z68.43 and BMI 60.0-69.9, adult Z68.44 [place] [id number] [place] [address] 47029- 6193 Jun, [place] [id number] [place] [address] 78038- 8169 May, [place] [id number] [place] [address] 75622- 9142 Apr, Benign essential tremor G25.0 [place] [address] 90195- 2038 Apr, [place] [id number] [place] [address] 41183- 0090 Apr, Benign paroxysmal vertigo of both ears H81.13 [place] [address] 346033- 3512 Mar, [facility] [address] [facility] [id number] [address] Feb, Sciatica, right side M54.31 ; Essential hypertension I10 ; Iron deficiency anemia secondary to inadequate dietary iron intake D50.8 and Benign essential tremor G25.0 [place] [address] [facility] [id number] [address] Feb, Benign essential tremor G25.0 and Essential hypertension I10 [place] [address] [facility] [id number], [place] [address] 5[address] Feb, Benign essential tremor G25.0 and Essential hypertension I10 IMMUNIZATIONS No Known Immunizations SOCIAL HISTORY Never Assessed REASON FOR VISIT Cold symptoms, head and chest congestion with ear ringing-[place] MA PLAN OF CARE Activity Details Follow Up prn Reason: VITAL SIGNS Height 63 in 2017-06-26 Weight 294.6 lbs 2017-06-26 Temperature 98.4 degrees Fahrenheit 2017-06-26 Heart Rate 84 bpm 2017-06-26 Respiratory Rate 20 2017-06-26 BMI 52.18 kg/m2 2017-06-26 Blood pressure systolic 128 mmHg 2017-06-26 Blood pressure diastolic 82 mmHg 2017-06-26 MEDICATIONS Medication Instructions Dosage Frequency Start Date End Date Duration Status Aspirin 325 MG Orally twice a day as needed 1 tablet Not-Taking Naproxen 500 mg Orally every 12 hrs 1 tablet as needed 12h Feb, Active Hydrochlorothiazide 25 MG Orally Once a day 1 tablet in the morning 24h Feb, 90 days Active Amoxicillin 500 mg Orally 3 times a day 1 capsule 8h Jun, Jun, 07 days Active Gabapentin 300 MG Orally Three times a day 1 capsule 8h Feb, 30 day(s) Active SudoGest 60 mg Orally every 6 hrs 1 tablet as needed 6h Jun, 05 days Active Ferrous Sulfate 325 (65 Fe) MG Orally Once a day 1 tablet 24h Feb, 30 day(s) Active Propranolol HCl 10 mg Orally Twice a day 1 tablet 12h 30 Active ProAir HFA 108 (90 Base) MCG/ACT Inhalation every 4 hrs 2 puffs as needed 4h Not-Taking RESULTS No Results PROCEDURES No Known procedures INSTRUCTIONS MEDICATIONS ADMINISTERED No Known Medications MEDICAL (GENERAL) HISTORY Type Description Date Medical History asthma Medical History chronic obstructive pulmonary disease (COPD) Surgical History section x3 Surgical History exploratory laparoscopy Surgical History tubal ligation
--- OUTSIDE RECORDS SUMMARY | 2018-07-28 15:44 | XMS REPORT ---
Author Author ROBI GONZALEZ Organization [facility] Address [address] [place] [address] Care Team Providers Care Corrections Corporal Name Role Phone ROBI GONZALEZ Unavailable PROBLEMS Type Condition ICD9-CM Code SVE30-PE Code Onset Dates Condition Status SNOMED Code Problem Sciatica, right side M54.31 Active 46703802 Problem Iron deficiency anemia secondary to inadequate dietary iron intake D50.8 Active 069057998 Problem Essential hypertension I10 Active 20115659 Problem Benign essential tremor G25.0 Active 578575710 ALLERGIES No Information ENCOUNTERS Encounter Location Date Diagnosis [facility] [id number] [place] [address] 82790- 0674 Oct, [facility] [id number] [place] [address] 64885- 0051 Oct, [facility] [id number] [place] [address] 04412 -0590 Sep, Acute non-recurrent maxillary sinusitis J01.00 and BMI 50.0 -59.9, adult Z68.43 [facility] [id number] [place] [address] 54286 -8112 26 Sep, 2017 Acute non-recurrent maxillary sinusitis J01.00 and BMI 50.0 -59.9, adult Z68.43 [facility] [id number] [place] [address] 57966- 2739 Jun, Acute suppurative otitis media of right ear without spontaneous rupture of tympanic membrane, recurrence not specified H66.001 ; BMI 50.0-59.9, adult Z68.43 and BMI 60.0-69.9, adult Z68.44 [facility] [id number] [place] [address] 28438- 0133 Jun, [facility] [address] [address] 86[address] May, [place] [id number] [place] [address] 69736- 8411 Apr, Benign essential tremor G25.0 [place] [id number] [place] [address] 93538- 3647 Apr, [place] [id number] [place] [address] 62148- 5022 Apr, Benign paroxysmal vertigo of both ears H81.13 [place] [id number] [place] [address] 54188- 7889 Mar, [place] [id number] [place] [address] 94331- 1635 Feb, Sciatica, right side M54.31 ; Essential hypertension I10 ; Iron deficiency anemia secondary to inadequate dietary iron intake D50.8 and Benign essential tremor G25.0 [place] [id number] [place] [address] 34858- 4103 Feb, Benign essential tremor G25.0 and Essential hypertension I10 [place] [address] [address] 6696 Feb, Benign essential tremor G25.0 and Essential hypertension I10 IMMUNIZATIONS No Known Immunizations SOCIAL HISTORY Never Assessed REASON FOR VISIT Repository Medication PLAN OF CARE VITAL SIGNS MEDICATIONS Unknown Medications RESULTS No Results PROCEDURES No Known procedures INSTRUCTIONS MEDICATIONS ADMINISTERED No Known Medications MEDICAL (GENERAL) HISTORY Type Description Date Medical History asthma Medical History chronic obstructive pulmonary disease (COPD) Surgical History section x3 Surgical History exploratory laparoscopy Surgical History tubal ligation
--- OUTSIDE RECORDS SUMMARY | 2018-07-28 15:44 | XMS REPORT ---
Author Author ROBI GONZALEZ Organization [facility] Address [address] [place] [address] Care Team Providers Care Admissions Recruiter Name Role Phone ROBI GONZALEZ Unavailable PROBLEMS Type Condition ICD9-CM Code LLQ30-AX Code Onset Dates Condition Status SNOMED Code Problem Moderate episode of recurrent major depressive disorder F33.1 Active 646610200 Problem Iron deficiency anemia secondary to inadequate dietary iron intake D50.8 Active 196582427 Problem Benign essential tremor G25.0 Active 144280110 Problem Sciatica, right side M54.31 Active 81765084 Problem Essential hypertension I10 Active 23846461 ALLERGIES No Information ENCOUNTERS Encounter Location Date Diagnosis [facility] [id number] [place] [address] 81849- 6043 December, [facility] [id number] [place] [address] [id number] Nov, [facility] [id number] [place] [address] 93775- 9501 Nov, Moderate episode of recurrent major depressive disorder F33.1 [facility] [id number] [place] [address] 62103- 5968 Oct, [facility] [id number] [place] [address] 25344- 7855 Oct, [facility] [id number] [place] [address] 96598 -2435 Sep, Acute non-recurrent maxillary sinusitis J01.00 and BMI 50.0 -59.9, adult Z68.43 [facility] [id number] [place] [address] 48578 -3774 Sep, Acute non-recurrent maxillary sinusitis J01.00 and BMI 50.0 -59.9, adult Z68.43 [place] [id number] [place] [address] 96533- 4539 Jun, Acute suppurative otitis media of right ear without spontaneous rupture of tympanic membrane, recurrence not specified H66.001 ; BMI 50.0-59.9, adult Z68.43 and BMI 60.0-69.9, adult Z68.44 [place] [id number] [place] [address] 28568- 0357 Jun, [place] [id number] [place] [address] 28205- 9163 May, [place] [address] 63870- 8744 Apr, Benign essential tremor G25.0 [place] [id number] [place] [address] 54831- 3267 Apr, [place] [id number] [place] [address] 47164- 0879 Apr, Benign paroxysmal vertigo of both ears H81.13 [place] [id number] [place] [address] 77386- 7755 Mar, [place] [id number] [place] [address] 11157- 3451 Feb, Sciatica, right side M54.31 ; Essential hypertension I10 ; Iron deficiency anemia secondary to inadequate dietary iron intake D50.8 and Benign essential tremor G25.0 [place] [id number] [place] [address] 70159- 3458 Feb, Benign essential tremor G25.0 and Essential hypertension I10 [place] [id number] [place] [address] 54203- 7039 Feb, Benign essential tremor G25.0 and Essential hypertension I10 IMMUNIZATIONS No Known Immunizations SOCIAL HISTORY Never Assessed REASON FOR VISIT Propranolol refill PLAN OF CARE VITAL SIGNS MEDICATIONS Medication Instructions Dosage Frequency Start Date End Date Duration Status Propranolol HCl 10 mg Orally Twice a day 1 tablet 12h 05 Feb, 2017 30 day(s) Active RESULTS No Results PROCEDURES No Known procedures INSTRUCTIONS MEDICATIONS ADMINISTERED No Known Medications MEDICAL (GENERAL) HISTORY Type Description Date Medical History asthma Medical History chronic obstructive pulmonary disease (COPD) Surgical History section x3 Surgical History exploratory laparoscopy Surgical History tubal ligation
--- OUTSIDE RECORDS SUMMARY | 2018-07-28 15:44 | XMS REPORT ---
Author Author ROBI GONZALEZ Organization [facility] Address [address] [place] [address] Care Team Providers Care Application Security Engineer Name Role Phone ROBI GONZALEZ Unavailable PROBLEMS Type Condition ICD9-CM Code VWK98-IF Code Onset Dates Condition Status SNOMED Code Problem Sciatica, right side M54.31 Active 04534525 Problem Iron deficiency anemia secondary to inadequate dietary iron intake D50.8 Active 482545483 Problem Essential hypertension I10 Active 35308692 Problem Benign essential tremor G25.0 Active 379599339 ALLERGIES No Information ENCOUNTERS Encounter Location Date Diagnosis [place] [address] 46877- 3583 Nov, [facility] [address] 85735- 1898 Oct, [facility] [address] 58848- 7439 Oct, [facility] [address] 44559 -1464 Sep, Acute non-recurrent maxillary sinusitis J01.00 and BMI 50.0 -59.9, adult Z68.43 [facility] IN [facility] [address] 32339 -[address]97 26 Sep, 2017 Acute non-recurrent maxillary sinusitis J01.00 and BMI 50.0 -59.9, adult Z68.43 [facility] [address] 42617- 6150 Jun, Acute suppurative otitis media of right ear without spontaneous rupture of tympanic membrane, recurrence not specified H66.001 ; BMI 50.0-59.9, adult Z68.43 and BMI 60.0-69.9, adult Z68.44 [place] [address] [place] [address] 82661- 6555 Jun, [place] [address] [place] [id number] [place] [address] 25290- 1907 May, [place] [address] [place] [id number] [place] [address] 63727- 8837 Apr, Benign essential tremor G25.0 [place] [address] [place] [id number] [place] [address] 86710- 4435 Apr, [place] [address] [place] [id number] [place] [address] 67373- 1586 Apr, Benign paroxysmal vertigo of both ears H81.13 [place] [address] [place] [id number] [place] [address] 91075- 8350 Mar, [place] [address] [place] [id number] [place] [address] 82181- 2455 Feb, Sciatica, right side M54.31 ; Essential hypertension I10 ; Iron deficiency anemia secondary to inadequate dietary iron intake D50.8 and Benign essential tremor G25.0 [place] [address] [place] [address] [id number] [place] [address] 00166- 4842 Feb, Benign essential tremor G25.0 and Essential hypertension I10 [place] [address] [place] [id number] [place] [address] 14112- 1158 Feb, Benign essential tremor G25.0 and Essential hypertension I10 IMMUNIZATIONS No Known Immunizations SOCIAL HISTORY Never Assessed REASON FOR VISIT Medication question PLAN OF CARE VITAL SIGNS MEDICATIONS Unknown Medications RESULTS No Results PROCEDURES No Known procedures INSTRUCTIONS MEDICATIONS ADMINISTERED No Known Medications MEDICAL (GENERAL) HISTORY Type Description Date Medical History asthma Medical History chronic obstructive pulmonary disease (COPD) Surgical History section x3 Surgical History exploratory laparoscopy Surgical History tubal ligation
--- NOTE | 2018-07-28 15:53 | ED Lower Extremity ---
General Stated Complaint: R FOOT INJ Source: patient Exam Limitations: no limitations History of Present Illness Date Seen by Provider: Jul 28, 2018 Time Seen by Provider: 15:52 Initial Comments Patient is a 43-year-old female who presents to the emergency room with complaints of right foot and ankle pain after a fall 2 nights ago. She reports that she was walking down 2 stairs when her house shoes became tangled up and she fell stubbing her right toe and twisting her ankle. She denies other injuries from the fall. She reports that today she was favoring the right ankle when she fell again twisting injury more. Denies other injuries from this fall. Onset: yesterday Pain/Injury Location: right ankle, right 1st toe Method of Injury: fell, twisted Modifying Factors: Worse With Movement Allergies and Home Medications Allergies Coded Allergies: acetaminophen (Verified Allergy, Intermediate, ITCHING, 04/27/17) oxycodone (Verified Allergy, Intermediate, ITCHING, 04/27/17) Home Medications Benzonatate 100 Mg Capsule, 1-2 TAB PO TID Prescribed by: MAGGIE RAJPUT on 04/27/17237 Guaifenesin/Dextromethorphan 1 Each Tbmp.12hr, 1 EACH PO BID Prescribed by: MAGGIE RAJPUT on 04/27/17237 Levofloxacin 500 Mg Tablet, 500 MG PO DAILY Prescribed by: MAGGIE RAJPUT on 04/27/17237 Methylprednisolone 4 Mg Tab.ds.pk, 4 MG PO UD Prescribed by: MAGGIE RAJPUT on 04/27/17237 Patient Home Medication List Home Medication List Reviewed: Yes Review of Systems Constitutional: see HPI; No chills, No fever Musculoskeletal: see HPI, joint pain (right foot and ankle) All Other Systems Reviewed Negative Unless Noted: Yes Past Ngrlwnm-Kbwgad-Tivafo Hx Past Med/Social Hx: Reviewed Nursing Past Med/Soc Hx Patient Social History Type Used: Cigarettes Recent Foreign Travel: No Contact w/Someone Who Travel: No Recent Hopitalizations: No Seasonal Allergies Seasonal Allergies: No Past Medical History Surgeries: Yes ( X 3; EXPLORATORY LAPAROSCOPY) Abdominal, Section, Tubal Ligation Respiratory: Yes Asthma, COPD Cardiac: Yes Hypertension Neurological: No Vertigo 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 oz. 131.090598dk; BMI Method:Stated General Appearance: WD/WN, no apparent distress Cardiovascular: normal peripheral pulses, regular rate, rhythm, no edema, no gallop, no JVD, no murmur Respiratory: chest non-tender, lungs clear, normal breath sounds, no respiratory distress, no accessory muscle use Ankles: right ankle pain, right ankle soft tissue tenderness, right ankle swelling Feet: right foot pain, right foot soft tissue tenderness, right foot swelling Neurologic/Psychiatric: alert, normal mood/affect, oriented x 3 Skin: normal color, warm/dry Progress/Results/Core Measures Results/Orders My Orders Orders - ABELARDO NOBLES Ankle, Right, 3 Views (07/28/18 15:50) Foot, Right, 3 View (07/28/18 15:50) Hydrocodone/Apap 5/325 Tablet (Lortab 5 (07/28/18 16:30) Medications Given in ED Vital Signs/I&O 07/28/18 07/28/18 15:34 17:36 Temp 96.9 96.9 Pulse 83 83 Resp 12 12 B/P (MAP) 155/83 (107) 155/83 (107) Pulse Ox 99 99 Diagnostic Imaging Diagonstic Imaging: Xray Plain Films/CT/US/NM/MRI: ankle, other (foot) Comments [facility], [place] NAME: CASSIE SCOTT MED REC#: [id number] PT STATUS: REG ER : 1975 PHYSICIAN: ABELARDO NOBLES ADMIT DATE: 07/28/18/ER Draft Date of Exam:07/28/18 ANKLE, RIGHT, 3 VIEWS INDICATION: Ankle pain. Fall downstairs. FINDINGS: Ankle alignment appears normal. The distal tibia and fibula demonstrate no evidence of an acute fracture. There is no widening of the mortise. The talar dome is normal in morphology. The visualized bones of hindfoot demonstrate a plantar calcaneal spur and are otherwise unremarkable. IMPRESSION: 1. No ankle fracture or dislocation. Dictated on workstation # [id number] Dict: 07/28/18 1621 Trans: 07/28/18 1622 [facility] [id number] Interpreted by: KAMERON ESCOBAR MD Electronically signed by: Reviewed: Reviewed by Me Departure Impression Primary Impression: Ankle sprain Disposition: HOME, SELF-CARE Condition: Stable/Unchanged Departure-Patient Inst. Decision time for Depature: 16:25 Referrals: ROBI GONZALEZ MD (PCP/Family) Primary Care Physician Patient Instructions: Ankle Sprain (DC) Add. Discharge Instructions: You may use ibuprofen and Tylenol as directed by the bottle for pain relief. Wear the Tano bandage and air stirrup as needed for comfort. Ice to the sore areas at 20 minute intervals. Elevation as much as possible. Follow-up with her primary care provider within 1 week for recheck. Return back to the emergency room for any worsening symptoms or concerns as needed. Work/School Note: Work Release Form Date Seen in the Emergency Department: Jul 28, 2018 Return to Work: Jul 29, 2018 Restrictions: No Restrictions ABELARDO NOBLES Jul 28, 2018 15:53
--- NOTE | 2018-07-28 16:23 | Diagnostic Imaging Report ---
INDICATION: Ankle pain. Fall downstairs. FINDINGS: Ankle alignment appears normal. The distal tibia and fibula demonstrate no evidence of an acute fracture. There is no widening of the mortise. The talar dome is normal in morphology. The visualized bones of hindfoot demonstrate a plantar calcaneal spur and are otherwise unremarkable. IMPRESSION: 1. No ankle fracture or dislocation. Dictated by: Dictated on workstation # [id number]
[2018-07-28] MEDS ORDERED: HYDROcodone/APAP 5 MG/325 MG (LORTAB) TAB PO ONE (16:30)
--- NOTE | 2018-07-28 17:16 | Diagnostic Imaging Report ---
INDICATION: Fall pain at the first ray. EXAMINATION: Three views of the right foot. FINDINGS: The first ray appears normal. No fracture, dislocation or articular incongruity. No foreign body. No abnormal parosteal reaction. Chronic plantar calcaneal spurring noted. Sesamoids are unremarkable. IMPRESSION: Unremarkable radiographs of the right foot. Dictated by: Dictated on workstation # [id number]
[2018-07-28 17:36] VITALS: BP 155/83
== END 2018-07-28 17:36 | disposition home or self-care (01) ==
LOC: EDUNIT# 15:30 → ER 15:31
DX: S93.401A Sprain of unspecified ligament of right ankle, initial encounter (principal); J44.9 Chronic obstructive pulmonary disease, unspecified; I10 Essential (primary) hypertension; Z88.5 Allergy status to narcotic agent; Z88.8 Allergy status to other drugs, medicaments and biological substances; Z79.52 Long term (current) use of systemic steroids; Z98.890 Other specified postprocedural states; Z98.51 Tubal ligation status; W10.8XXA Fall (on) (from) other stairs and steps, initial encounter; X50.1XXA Overexertion from prolonged static or awkward postures, initial encounter
CPT/HCPCS: 73610; 73630

== ENCOUNTER 2020-12-24 06:12 | Outpatient (RCR) | payer OTHER ==
[~2020-12-24] VITALS: Ht 162.6 cm; Wt 112.6 kg
[~2020-12-24 06:12] MED LIST changes: +BUPR100T15 PO; +CETI10TA17 PO; +GABA-490 PO; +HYDR25TA4 PO; +LURA120T PO; +MECO10005 PO; +NAPR-1067 PO; +PROP10TA8 PO; +TERB250T16 PO
== END 2020-12-24 12:37 | disposition home or self-care (01) ==
LOC: PREOP 06:12
PROVIDERS: ATTEND Surgery
DX: Z01.812 Encounter for preprocedural laboratory examination (principal); R13.10 Dysphagia, unspecified; Z20.822 Contact with and (suspected) exposure to COVID-19
CPT/HCPCS: 87635

== ENCOUNTER 2020-12-27 09:53 | Day surgery (SDC) | payer OTHER ==
[~2020-12-27] VITALS: Ht 162.6 cm; Wt 112.6 kg
[2020-12-27] MEDS ORDERED: LACTATED RINGERS 1,000 ML IV ONE (10:10)
[2020-12-27] MEDS ORDERED: LACTATED RINGERS 1,000 ML IV STA (10:12)
[2020-12-27 10:20] VITALS: BP 143/82
[2020-12-27] MEDS ORDERED: HURRICAINE EXT TUBE (BENZOCAINE) XX PRN (10:45)
--- NOTE | 2020-12-27 10:50 | Progress Note-Pre Operative ---
Pre-Operative Progress Note H&P Reviewed The H&P was reviewed, patient examined and no changes noted. Time Seen by Provider: 10:49 Date H&P Reviewed: December 27, 2020 Time H&P Reviewed: 10:49 Pre-Operative Diagnosis: dysphagia PHI ISABEL DO December 27, 2020 10:50
[2020-12-27] MEDS ORDERED: proPOfol 200 MG/20 ML (DIPRIVAN) VIAL IV ONE (10:55)
[2020-12-27] MEDS ORDERED: HURRICAINE EXT TUBE (BENZOCAINE) ONE (11:36)
[2020-12-27] MEDS ORDERED: MIDAZOLAM 2 MG/2 ML (VERSED) VIAL ONE (11:38)
[2020-12-27 12:00] VITALS: BP 136/64
--- NOTE | 2020-12-27 12:00 | Progress Note-Post Operative ---
Post-Operative Progess Note Surgeon (s)/Dry Dip Worker (s) Surgeon PHI ISABEL DO Dry Dip Worker: none Pre-Operative Diagnosis dysphagia Post-Operative Diagnosis Marinelli's esophagus Gastritis hiatal hernia Procedure & Operative Findings Date of Procedure 12/27/20 Procedure Performed/Findings PROCEDURE NOTE: After informed consent was obtained, the patient was brought to the endoscopy suite, placed in bed in left lateral decubitus position. She was administered IV sedation by the LINEMAN A CLASS who then monitored her vitals the entire time, heart rate, blood pressure and pulse ox and the scope was inserted down the mouth through the esophagus into the stomach. On the way down, noted some moderate to severe esophagitis; probable Marinelli's, took a picture and then pushed into the stomach, pushed past the antrum into the duodenum. Duodenum looked good. Pulled back and did a biopsy of antrum, then retroflexed the scope, saw hiatal hernia, took a picture of this and then pulled the scope into the GE junction, then did three biopsies of the GE junction. Pushed the scope back into the stomach, suctioned all the air out of the stomach and then pulled the scope up the esophagus and at this point pulled the scope up the esophagus and out the mouth. The patient tolerated the procedure, and she was recovered in endoscopy suite. Anesthesia Type IV sedation by LINEMAN A CLASS Estimated Blood Loss Estimated blood loss (mL): scant Specimens/Packing Specimens Removed antral bx GE jxn x 3 PHI ISABEL DO December 27, 2020 12:00
--- NOTE | 2020-12-27 12:01 | Endoscopy Discharge Instruct ---
Endo Procedure/Findings Findings 1.: Marinelli's Esophagus 2.: Hiatal Hernia 3.: Gastritis Discharge Instructions - Activity: You might feel a little sleepy until tomorrow. This is due to the medicine you received to relax you. Until tomorrow, you should: NOT drive a car, operate machinery or power tools. NOT drink any alcoholic beverages. NOT make any important decisions or sign importortant papers. Do not return to work until tomorrow, unless otherwise instructed. Resume previous activities tomorrow. Diet: Start by taking liquids. If you tolerate liquids, advance to solid food. 1.: EGD in 6-8 weeks Notify Physician - If you experience excessive bleeding, unusual abdominal pain, fever, or chest pain, contact your doctor immediately. PHI ISABEL DO December 27, 2020 12:01
[2020-12-27 12:05] VITALS: BP 136/67
[2020-12-27 12:25] VITALS: BP 128/86
--- NOTE | 2020-12-27 12:36 | Anesthesia-General Post-Op ---
MAC Patient Condition Mental Status/LOC: Same as Preop Cardiovascular: Satisfactory Nausea/Vomiting: Absent Respiratory: Satisfactory Pain: Controlled Complications: Absent Post Op Complications Complications None Follow Up Care/Instructions Patient Instructions None needed. Anesthesiology Discharge Order Discharge Order Patient is doing well, no complaints, stable vital signs, no apparent adverse anesthesia problems. No complications reported per nursing. ABBY SANDERS CRNA December 27, 2020 12:35
[2020-12-27 13:20] VITALS: BP 128/86
== END 2020-12-27 13:20 | disposition home or self-care (01) ==
LOC: ENDO 09:53
PROVIDERS: ATTEND Surgery
DX: K20.90 Esophagitis, unspecified without bleeding (principal); K29.70 Gastritis, unspecified, without bleeding; K31.9 Disease of stomach and duodenum, unspecified; K44.9 Diaphragmatic hernia without obstruction or gangrene; I10 Essential (primary) hypertension; J45.909 Unspecified asthma, uncomplicated; E66.01 Morbid (severe) obesity due to excess calories; Z80.7 Family history of other malignant neoplasms of lymphoid, hematopoietic and related tissues; Z88.5 Allergy status to narcotic agent; Z88.8 Allergy status to other drugs, medicaments and biological substances; Z79.1 Long term (current) use of non-steroidal anti-inflammatories (NSAID); Z79.899 Other long term (current) drug therapy; Z87.891 Personal history of nicotine dependence; Z68.41 Body mass index [BMI] 40.0-44.9, adult; Z98.890 Other specified postprocedural states
CPT/HCPCS: 84703; 88305

== ENCOUNTER 2021-02-02 05:40 | Outpatient (CLI) | payer OTHER ==
[~2021-02-02] VITALS: Ht 162.5 cm; Wt 118.6 kg
[2021-02-02] MEDS ORDERED: NAPR-429 PO (14:33)
[2021-02-02] MEDS ORDERED: CYCL10TA9 PO (14:33)
[2021-02-02] MEDS ORDERED: LURA80TA3 PO (14:33)
[2021-02-02] MEDS ORDERED: PANT40TA2 PO (14:33)
[2021-02-02] MEDS ORDERED: GABA300C PO (14:33)
[2021-02-02] MEDS ORDERED: BUSP10TA95 PO (14:33)
[2021-02-09] MEDS ORDERED: ACHYD1T PO (08:22)
[2021-02-09] MEDS ORDERED: DOCU-143 PO (08:22)
== END 2021-02-02 15:15 | disposition home or self-care (01) ==
LOC: PREOP 05:40
PROVIDERS: ATTEND Obstetrics & Gynecology
DX: Z01.818 Encounter for other preprocedural examination (principal)

== ENCOUNTER 2021-02-09 11:09 | Day surgery (SDC) | payer OTHER ==
[2021-02-09] VITALS (12 sets, daily range): BP systolic 128–141; BP diastolic 63–88
[~2021-02-09] VITALS: Ht 162.5 cm; Wt 118.6 kg
--- NOTE | 2021-02-09 08:17 | Progress Note-Pre Operative ---
Pre-Operative Progress Note H&P Reviewed The H&P was reviewed, patient examined and no changes noted. Date Seen by Provider: Feb 09, 2021 Time Seen by Provider: 12:20 Date H&P Reviewed: Feb 09, 2021 Time H&P Reviewed: 12:20 Pre-Operative Diagnosis: Menometrorrhagia/dysmenorrhea SASHA RAMON MD Feb 09, 2021 08:17
--- NOTE | 2021-02-09 08:17 | Progress Note-Post Operative ---
Post-Operative Progess Note Surgeon (s)/Patient Financial Rep (s) Surgeon SASHA RAMON MD Patient Financial Rep: Kelly Pre-Operative Diagnosis Menometrorrhagia/dysmenorrhea Post-Operative Diagnosis Same Procedure & Operative Findings Date of Procedure 02/09/21 Procedure Performed/Findings TLH with bilateral salpingectomy Anesthesia Type GETA Estimated Blood Loss Estimated blood loss (mL): Minimal Specimens/Packing Specimens Removed Uterus and fallopian tubes Packing: None SASHA RAMON MD Feb 09, 2021 08:17
--- NOTE | 2021-02-09 08:24 | Discharge Inst-Surgical ---
Discharge Inst-Surgical Depart Medication/Instructions New, Converted or Re-Newed RX: Transmitted to Pharmacy Consults/Follow Up Patient Instructions: As directed Orders & Referrals Follow Up Appt: Return to clinic on Sunday, February 11, 2021 at 9:30 AM for staple removal Call to make follow up appt. for patient in 4 weeks. Activity: Rest for 24 hours, than as tolerated. Wound Care: May remove Band-Aid tomorrow. Replace as desired. Keep incisions clean and dry. Wash daily with soap and water. Prescription for Lorcet and Colace have been transmitted to this patient's pharmacy Patient is continue all of her home medications as previously prescribed Diet: As tolerated-Clear Liquids only if nauseated. Tomorrow, may shower or tub bathe as desired. No driving for 24 hours, no alcoholic beverages for 24 hours, and nothing per vagina (no tampons, douching, or intercourse) for 8 weeks. Patient to return to the clinic as soon as possible for: Temperature greater than 101F, Severe Pain, Foul discharge from incision or vagina, Excessive Bleeding (more than a period). Activity Activity as Tolerated: No Diet Discharge Diet: No Restrictions SASHA RAMON MD Feb 09, 2021 08:24
[~2021-02-09 11:09] MED LIST changes: +ACHYD1T PO; +BUSP10TA95 PO; +CYCL10TA9 PO; +DOCU-143 PO; +GABA300C PO; +KETOROLAC 30 MG/ML VIAL IVP SCH; +LURA80TA3 PO; +NAPR-429 PO; +ONDANSETRON 4 MG/2 ML (SDV) Z0FRAN IVP PRN; +PANT40TA2 PO; +fentaNYL INJ 100 MCG/2 ML AMP IVP PRN
[2021-02-09] MEDS ORDERED: LACTATED RINGERS 1,000 ML IV PRN (11:15)
[2021-02-09] MEDS ORDERED: ceFAZolin INJECTION 1,000 MG in WATER (STERILE) FOR INJECTION 10 ML IV ONE (11:15)
[2021-02-09] MEDS ORDERED: LIDOCAINE/EPI 1%-1:100,000 (XYLOCAINE) 20ML ONE (11:36)
[2021-02-09] MEDS ORDERED: ROCURONIUM 10 MG/ML 5 ML SYRINGE IV ONE (11:59)
[2021-02-09] MEDS ORDERED: fentaNYL INJ 100 MCG/2 ML AMP ONE (11:59)
[2021-02-09] MEDS ORDERED: SEVOFLURANE (ULTANE) 15 ML INHAL SOLN ONE ×2 (11:59→14:25)
[2021-02-09] MEDS ORDERED: ONDANSETRON 4 MG/2 ML (SDV) Z0FRAN ONE (11:59)
[2021-02-09] MEDS ORDERED: proPOfol 200 MG/20 ML (DIPRIVAN) VIAL IV ONE (11:59)
[2021-02-09] MEDS ORDERED: MIDAZOLAM 2 MG/2 ML (VERSED) VIAL ONE (11:59)
[2021-02-09] MEDS ORDERED: LIDOCAINE PF 2% 5 ML (XYLOCAINE) VIAL ONE (11:59)
[2021-02-09 12:38] LABS: BASOPHILS % (AUTO) 1 % (0-10); EOSINOPHILS # (AUTO) 0.2 10^3/uL (0.0-0.3); EOSINOPHILS % (AUTO) 4 % (0-10); HEMATOCRIT 42 % (35-52); HEMOGLOBIN 13.7 g/dL (11.5-16.0); LYMPHOCYTES # (AUTO) 0.6 10^3/uL (1.0-4.0); LYMPHOCYTES % (AUTO) 17 % (12-44); MEAN CORPUSCULAR HEMOGLOBIN 32 pg (25-34); MEAN CORPUSCULAR HGB CONC 33 g/dL (32-36); MEAN CORPUSCULAR VOLUME 97 fL (80-99); MEAN PLATELET VOLUME 10.6 fL (9.0-12.2); MONOCYTES # (AUTO) 0.5 10^3/uL (0.0-1.0); MONOCYTES % (AUTO) 12 % (0-12); NEUTROPHILS # (AUTO) 2.5 10^3/uL (1.8-7.8); NEUTROPHILS % (AUTO) 66 % (42-75); PLATELET COUNT 260 10^3/uL (130-400); WHITE BLOOD COUNT 3.8 10^3/uL (4.3-11.0)
[2021-02-09] MEDS ORDERED: HYDROmorphone 2 MG/ML VIAL (DILAUDID) ONE (13:31)
[2021-02-09] MEDS ORDERED: GLYCOPYRROLATE 0.2 MG/ML (ROBINUL) 2 ML VIAL ONE ×2 (14:16→14:20)
[2021-02-09] MEDS ORDERED: NEOSTIGMINE 3 MG/3 ML VIAL ONE (14:16)
[2021-02-09] MEDS ORDERED: KETOROLAC 30 MG/ML VIAL ONE (14:18)
[2021-02-09] MEDS ORDERED: ONDANSETRON 4 MG/2 ML (SDV) Z0FRAN IVP PRN (14:45)
[2021-02-09] MEDS ORDERED: HYDROmorphone 2 MG/ML VIAL (DILAUDID) IV ONE (14:45)
[2021-02-09] MEDS: D5 LR IV SOLUTION 1,000 ML IV SCH (17:39)
--- NOTE | 2021-02-09 19:47 | OPERATIVE REPORT ---
DATE OF SERVICE: 02/09/2021 SURGEON: Quinn Romero MD PREOPERATIVE DIAGNOSES: Menorrhagia, menometrorrhagia and dysmenorrhea. POSTOPERATIVE DIAGNOSES: Menorrhagia, menometrorrhagia and dysmenorrhea. OPERATIVE PROCEDURE: Total laparoscopic hysterectomy with bilateral salpingectomy. OPERATIVE DESCRIPTION: With the patient in supine position under satisfactory general anesthesia, she was repositioned in dorsal lithotomy position in the [facility] and then prepped and draped in the usual fashion for abdominal and vaginal surgery. Weighted speculum placed in posterior fornix of vagina, cervix exposed and grasped anteriorly with single tooth tenaculum. Uterus was sounded to 11 cm with uterine sound. The cervix was then serially dilated with Chris dilators to accommodate a Diana II manipulator was placed in the usual manner using a 6 mm x 8 cm uterine probe and a 25 mm colpotomy ring. Sutures of #1 Vicryl placed at 3 and 9 o'clock position of cervix to affix the uterus to the manipulator. Davila catheter was placed in the urinary bladder. Tenaculum and speculum were removed. The patient was brought in low dorsal lithotomy position. A 12 mm incision was made 10 cm superior to the umbilicus. Veress needle was placed through that incision, correct placement confirmed with water drop test. The abdomen was insufflated with 2.4 liters of carbon dioxide and the Veress needle was removed and a 12 mm Optiview laparoscopic port placed. Abdominal wall was transilluminated. Ports of 8 mm were placed 9 cm to the right of the umbilicus and 8 cm to the left of the umbilicus approximately 3 cm above the level of the umbilicus across the abdomen. These were placed under direct vision. All in all port sites were infiltrated with 1% lidocaine with epinephrine prior to incision. The patient was now placed in Trendelenburg allowing the bowel spill out of the pelvis. The da Nona column was advanced on the patient, docked and operative instrument placed in right and left lateral ports and I retired to the da Nona console. At the console using the vessel sealer on the right and a bipolar fenestrated grasper on the left, the pelvis was first examined. Both fallopian tubes showed evidence of remote tubal sterilization. The uterus was large and boggy and mottled in appearance consistent with adenomyosis. The appendix was identified. It was a normal vermiform appendix. Both ovaries appeared relatively normal. There were some follicular cysts on both. This would be normal. Decision was made to proceed with the intended procedure TLH with BS. The right fallopian tube was grasped, elevated and the mesosalpinx was clamped, cauterized and divided with the vessel sealer over to the uteroovarian pedicle, which was clamped, cauterized and divided also with the same instruments. Dissection was carried down across the round ligament, across the broad ligament and down onto the cardinal ligament. Same procedure performed on the left, allowing for removal of both fallopian tubes and conservation of both ovaries. Anterior lower uterine segment peritoneum was divided. The bladder was carefully dissected down off the lower uterine segment and then using the vessel sealer on the right placed in the vessel sealer using the monopolar shear in place of the vessel sealer on the right. The anterior colpotomy incision was started at 12 o'clock position onto the colpotomy ring. That incision was continued circumferentially until the entire colpotomy ring was exposed. The uterus was then extracted through the vagina with the tubes still attached. The left instrument was replaced with the Cobra grasper. The right instrument was replaced with a needle services delivery driver. Using a single suture of V-Loc barbed suture, the vaginal cuff was closed with running suture starting at the right angle and continuing all the way across the cuff. The left angle taking care to include the pedicles of the uterine vessels bilaterally. Hemostasis was complete. Good reapproximation was evident. The pelvis was examined for hemostasis that was complete with no abnormal pathology, the procedure was terminated. The operative instruments removed under direct vision as were the ports. The abdomen was evacuated of insufflating gas in the process of removing the ports. The skin incisions were stapled. The fascia at the supraumbilical incision was closed with [id number] suture of 2-0 Vicryl. Speculum was placed in the vagina. The vaginal cuff was examined. It was completely hemostatic and completely intact. Sponge and needle counts were correct. Blood loss was minimal. The patient tolerated the procedure well and was uneventfully awakened from her general anesthesia and transferred to the recovery room in stable condition. Job ID: [id number] DocumentID: [id number] Dictated Date: 02/09/2021 14:25:00 Merchandise Flow Team Member Date: 02/09/2021 19:47:20 Dictated By: QUINN ROMERO MD MTDD
[2021-02-09] MEDS ORDERED: DOCUSATE SODIUM 100 MG (COLACE) CAP PO ONE (21:23)
[2021-02-09] MEDS: KETOROLAC 30 MG/ML VIAL IVP SCH (21:26)
[2021-02-10 00:20] VITALS: BP 129/67
[2021-02-10] MEDS: D5 LR IV SOLUTION 1,000 ML IV SCH (00:20)
[2021-02-10 04:02] VITALS: BP 120/57
[2021-02-10] MEDS: KETOROLAC 30 MG/ML VIAL IVP SCH ×2 (04:02→06:41)
[2021-02-10 07:50] VITALS: BP_SYST 131; BP_DIAS 7; BP_DIAS 79
--- NOTE | 2021-02-10 08:01 | Progress Note ---
Standard Progress Note Progress Notes/Assess & Plan Date Seen by a Provider: Feb 10, 2021 Time Seen by a Provider: 08:00 Progress/Assessment & Plan This patient is without complaint. She is ambulating, voiding, tolerating oral intake well and has good pain control. Patient is requesting discharge home. Vital Signs Date Time Temp Pulse Resp B/P (MAP) Pulse Ox O2 Delivery O2 Flow Rate FiO2 02/10/21 04:02 36.5 60 16 120/57 (78) 99 Room Air 02/10/21 00:20 36.6 78 16 129/67 (87) 99 Room Air 02/09/21 21:26 36.8 72 16 141/72 (95) 99 Room Air 02/09/21 17:10 36.6 76 16 133/75 (94) 99 Room Air 02/09/21 16:25 36.6 71 16 128/76 (93) 98 Nasal Cannula 1.50 02/09/21 15:35 36.6 62 16 130/63 (85) 100 Nasal Cannula 2.00 02/09/21 15:35 100 Nasal Cannula 2.00 02/09/21 15:25 Nasal Cannula 2 02/09/21 15:25 36.4 14 139/81 (100) 100 Nasal Cannula 2 02/09/21 15:20 36.4 14 139/81 (100) 100 Nasal Cannula 2 02/09/21 15:15 Nasal Cannula 2 02/09/21 15:10 12 137/80 (99) 99 Nasal Cannula 2 02/09/21 15:00 14 139/80 (99) 100 OxyMask 3 02/09/21 15:00 OxyMask 3 02/09/21 14:50 14 141/80 (100) 99 OxyMask 3 02/09/21 14:45 OxyMask 3 02/09/21 14:40 16 137/82 (100) 100 OxyMask 3 02/09/21 14:32 OxyMask 8 02/09/21 14:32 36.3 16 138/78 (98) 99 OxyMask 8 02/09/21 11:24 37.5 74 18 138/88 (105) 98 Room Air I & O 02/10/21 07:00 Intake Total 1960 ml Output Total 1825 ml Balance 135 ml Vital signs are stable. Patient is afebrile. The abdomen is benign. The surgical incision dressings are clean dry and intact Extremities show no clubbing or cyanosis. There is no Homans' sign. Assessment and plan Postoperative day #1 doing well. Plan is for discharge home with follow-up in clinic Final Diagnosis Menorrhagia and dysmenorrhea SASHA RAMON MD Feb 10, 2021 08:01
[2021-02-10] MEDS ORDERED: DOCUSATE SODIUM 100 MG (COLACE) CAP PO SCH (09:00)
[2021-02-10] MEDS ORDERED: IBUPROFEN 800 MG (MOTRIN) TAB PO SCH (14:00)
--- NOTE | 2021-02-11 06:50 | Anesthesia-General Post-Op ---
General Patient Condition Mental Status/LOC: Same as Preop Cardiovascular: Satisfactory Nausea/Vomiting: Absent Respiratory: Satisfactory Pain: Controlled Complications: Absent Post Op Complications Complications None Follow Up Care/Instructions Patient Instructions None needed. Anesthesia/Patient Condition Patient Condition Patient is doing well, no complaints, stable vital signs, no apparent adverse anesthesia problems. No complications reported per nursing. D/C home per [facility] Criteria: Yes GENA COLLAZO CRNA Feb 11, 2021 06:50
== END 2021-02-10 09:04 | disposition home or self-care (01) ==
LOC: SDC 11:09 → EDSTATUS 13:00 → WS 15:25 → SDC 02-10 09:04
PROVIDERS: ATTEND Obstetrics & Gynecology
DX: N80.0 Endometriosis of uterus (principal); N83.02 Follicular cyst of left ovary; N83.01 Follicular cyst of right ovary; N94.89 Other specified conditions associated with female genital organs and menstrual cycle; N83.8 Other noninflammatory disorders of ovary, fallopian tube and broad ligament; I10 Essential (primary) hypertension; J45.909 Unspecified asthma, uncomplicated; E66.01 Morbid (severe) obesity due to excess calories; F31.9 Bipolar disorder, unspecified; D50.0 Iron deficiency anemia secondary to blood loss (chronic); Z79.899 Other long term (current) drug therapy; Z87.891 Personal history of nicotine dependence; Z68.41 Body mass index [BMI] 40.0-44.9, adult; Z80.7 Family history of other malignant neoplasms of lymphoid, hematopoietic and related tissues
CPT/HCPCS: 36415; 84703; 85025; 86850; 86900; 86901; 87081; 94664

== ENCOUNTER 2021-10-07 08:14 | Emergency (ER) | payer OTHER ==
[~2021-10-07] VITALS: Ht 162.6 cm; Wt 127.1 kg
[~2021-10-07 08:14] MED LIST changes: +CYCL10TA25 PO; -CYCL10TA9 PO; -KETOROLAC 30 MG/ML VIAL IVP SCH; -ONDANSETRON 4 MG/2 ML (SDV) Z0FRAN IVP PRN; -TERB250T16 PO; +TERB250T88 PO; -fentaNYL INJ 100 MCG/2 ML AMP IVP PRN
[2021-10-07] MEDS ORDERED: RABIES VACCINE HUMAN DIPL CELL 1 ML/2.5 UNITS SYR IM ONE (08:30)
[2021-10-07] MEDS ORDERED: RABIES IMMUNE GLOBULIN (KEDRAB) 1,500 UNITS/10 ML IM ONE (08:30)
[2021-10-07 08:34] VITALS: BP 158/79
--- NOTE | 2021-10-07 08:37 | ED General ---
General Stated Complaint: CAT BITE Source of Information: Patient Exam Limitations: No Limitations History of Present Illness Date Seen by Provider: Oct 07, 2021 Time Seen by Provider: 08:17 Initial Comments Patient to the ER by private conveyance chief complaint that while she was putting down her domestic cat at the vets office yesterday for a brain tumor it became provoked and scratched her forearm and bit her on her left dorsum of the interphalangeal joint and her right forearm. She is having a little bit of whitish discharge from the wound on her thumb. Full range of motion of her joints and no swelling of the joint. She was put on Augmentin and given a tetanus vaccine and instructed to come to the ER for rabies prophylaxis because her cat has not had rabies vaccine for the least the last 3 years. The vet did send off tissue samples to be tested for rabies. Patient has no immunocompromise and has been tolerating the antibiotics okay. No diabetes. Allergies and Home Medications Allergies Coded Allergies: oxycodone (Verified Allergy, Intermediate, ITCHING, 12/27/20) Patient Home Medication List Home Medication List Reviewed: Yes Ascorbate Calcium (Vitamin C) 500 Mg Tablet, (Reported) Entered as Reported by: JOSEPH LYLE on 04/27/17 0233 Bupropion HCl (Bupropion HCl) 100 Mg Tablet, 300 MG PO DAILY, (Reported) Entered as Reported by: ROBI MALDONADO on 12/20/20 1424 Buspirone HCl (Buspirone HCl) 10 Mg Tablet, 10 MG PO BID, (Reported) Entered as Reported by: MICHELE GREGORY on 02/02/21 143 Cetirizine HCl (Cetirizine HCl) 10 Mg Tablet, 10 MG PO DAILY, (Reported) Entered as Reported by: ROBI MALDONADO on 12/20/20 1424 Cyclobenzaprine HCl (Cyclobenzaprine HCl) 10 Mg Tablet, 10 MG PO TID, (Reported) Entered as Reported by: MICHELE GREGORY on 02/02/21 1433 Docusate Sodium (Colace) 100 Mg Capsule, 100 MG PO BID Prescribed by: SASHA FUCHS on 02/09/21 0822 Ferrous Sulfate (Ferosul) 325 Mg Tablet, (Reported) Entered as Reported by: JOSEPH LYLE on 04/27/17 0232 Gabapentin (Gabapentin) 400 Mg Capsule, 300 MG PO TID, (Reported) Entered as Reported by: ROBI MALDONADO on 12/20/20 142 Gabapentin (Neurontin) 300 Mg Capsule, 300 MG PO TID, (Reported) Entered as Reported by: MICHELE GREGORY on 02/02/21 143 Hydrochlorothiazide (Hydrochlorothiazide) 25 Mg Tablet, 25 MG PO DAILY, (Reported) Entered as Reported by: ROBI MALDONADO on 12/20/20 142 Hydrocodone Bit/Acetaminophen (HYDROcodone/APAP 10/325 TABLET) 1 Ea Tab, 1 TAB PO Q4H PRN for PAIN-MODERATE Prescribed by: SASHA FUCHS on 02/09/21 0823 Lurasidone HCl (Latuda) 80 Mg Tablet, 80 MG PO DAILY, (Reported) Entered as Reported by: MICHELE GREGORY on 02/02/21 143 Mecobalamin (B12 Active) 1,000 Mcg Tab.chew, 1,000 MCG PO DAILY, (Reported) Entered as Reported by: ROBI MALDONADO on 12/20/20 142 Naproxen Sodium (Naproxen Sodium ER) 500 Mg Tbmp.24hr, 500 MG PO BID, (Reported) Entered as Reported by: MICHELE GREGORY on 02/02/21 143 Pantoprazole Sodium (Protonix) 40 Mg Tablet.dr, 40 MG PO DAILY, (Reported) Entered as Reported by: MICHELE GREGORY on 02/02/21 143 Propranolol HCl (Propranolol HCl) 10 Mg Tablet, 10 MG PO BID, (Reported) Entered as Reported by: ROBI MALDONADO on 12/20/20 142 Terbinafine HCl (Terbinafine HCl) 250 Mg Tablet, 250 MG PO DAILY, (Reported) Entered as Reported by: ROBI MALDONADO on 12/20/20 142 Review of Systems Review of Systems Constitutional: No chills, No diaphoresis EENTM: No ear discharge, No ear pain, No blurred vision Respiratory: No cough, No dyspnea on exertion Cardiovascular: No chest pain, No palpitations Gastrointestinal: No abdominal pain, No nausea, No vomiting Genitourinary: No discharge, No dysuria Musculoskeletal: No back pain, No joint pain Skin: see HPI All Other Systems Reviewed Negative Unless Noted: Yes Past Eunjaig-Vvlaet-Ktbuta Hx Patient Social History Tobacco Use?: No Use of E-Cig and/or Vaping dev: No Seasonal Allergies Seasonal Allergies: No Past Medical History Surgeries: Yes ( X 3; EXPLORATORY LAPAROSCOPY) Abdominal, Section, Tubal Ligation Respiratory: Yes Asthma, Chronic Bronchitis Cardiac: Yes Hypertension Neurological: No Vertigo Reproductive Disorders: No 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 oz. 121.671945zr; 44.91 BMI Method:Stated General Appearance: No Apparent Distress, Obese Eyes: Left Eye Normal Inspection, Left Eye PERRL Respiratory: No Accessory Muscle Use, No Respiratory Distress Cardiovascular: Regular Rate, Rhythm, Normal Peripheral Pulses Extremity: Normal Capillary Refill, Other (Small puncture wounds over the right forearm and the left thumb dorsal side. There is no purulence or drainage. No significant induration or erythema.) Neurologic/Psychiatric: Alert, Oriented x3, No Motor/Sensory Deficits Skin: Other (No induration fluctuance or significant erythema around the puncture wounds.) Procedures/Interventions Progress EnteredProphylactic rabies immunoglobulin injection 2 cc in the left thumb and 3 cc in the right forearm. We then put 3 cc each and bilateral lateral quadriceps and 3 cc each in the bilateral hips. Patient tolerated the procedure. Skin was cleaned with alcohol and allowed to dry naturally. We then used a track method and aspiration and did not aspirate any blood before injecting. All injections were done using 25-gauge 1-1/2 inch needles. Progress/Results/Core Measures Suspected Sepsis SIRS Temperature: Pulse: Respiratory Rate: Blood Pressure / Mean: Results/Orders My Orders Orders - LORI YAO Rabies Vaccine Human Dipl Cell (Rabavert (10/07/21 08:30) Rabies Immune Globulin/Pf 10ml (Kedrab 1 (10/07/21 08:30) Wrist, Right, 3 Views Or More (10/07/21 08:39) Hand, Left, 3 Views (10/07/21 08:39) Medications Given in ED Current Medications Medications Dose Ordered Sig/Jenny Route Start Time Stop Time Status Last Admin Dose Admin Rabies Immune Globulin 2,542 units ONCE ONCE IM 10/07/21 08:30 10/07/21 08:32 DC 10/07/21 09:13 2,542 UNITS Rabies Vaccine Human Diploid Cell 1 ml ONCE ONCE IM 10/07/21 08:30 10/07/21 08:32 DC 10/07/21 09:14 1 ML Vital Signs/I&O 10/07/21 08:34 Temp 36.4 Pulse 98 Resp 17 B/P (MAP) 158/79 (105) O2 Delivery Room Air Capillary Refill : Progress Note : Time: 08:38 Progress Note The wounds appear to be responding favorably to antibiotics. There is nothing to be drained. Rabies prophylaxis with Ig and vaccine are indicated at this time. We will get a vaccine and try and infiltrate around the wounds with some immunoglobulin. Plain films bilateral hands to rule out retained foreign object. Diagnostic Imaging Diagonstic Imaging: Xray Plain Films/CT/US/NM/MRI: hand (left) Comments No acute osseous abnormality or foreign object noted. [facility] [place] [place] NAME: [facility] REC#: [id number] PT STATUS: REG ER : 1975 PHYSICIAN: LORI YAO MD ADMIT DATE: 10/07/21/ER Draft Date of Exam:10/07/21 HAND, LEFT, 3 VIEWS Hand pain EXAMINATION: Left hand 10/07/2021 FINDINGS: Examination of the left hand fails to reveal evidence of fracture, dislocation or other bony abnormality. IMPRESSION: Negative hand. Dictated on workstation # [id number] Dict: 10/07/21 0859 Trans: 10/07/21 0903 [facility] [id number] Interpreted by: GIO PACE MD Electronically signed by: Reviewed: Reviewed by Me Diagonstic Imaging: Xray Plain Films/CT/US/NM/MRI: forearm (r wrist) Comments No acute osseous abnormality or foreign object noted. [facility] [place] [place] NAME: CASSIE [facility] REC#: [id number] PT STATUS: REG ER : 1975 PHYSICIAN: LORI YAO MD ADMIT DATE: 10/07/21/ER Draft Date of Exam:10/07/21 WRIST, RIGHT, 3 VIEWS OR MORE INDICATION: Right wrist pain. AP, oblique, lateral views of the right wrist are obtained. FINDINGS: No fracture or acute bony abnormality is seen. Joint spaces are unremarkable. IMPRESSION: Negative right wrist. Dictated on workstation # [id number] Dict: 10/07/21 0856 Trans: 10/07/21 0858 [id number] Interpreted by: EVANGELINA LEAL MD Electronically signed by: Reviewed: Reviewed by Me Departure Impression Primary Impression: Cat bite Qualified Codes: W55.01XA - Bitten by cat, initial encounter Additional Impression: Rabies, need for prophylactic vaccination against Disposition: HOME, SELF-CARE Condition: Stable Departure-Patient Inst. Decision time for Depature: 08:52 Referrals: [facility] [place] (PCP) Primary Care Physician BREANNE BOYCE (Family) Primary Care Physician Patient Instructions: Rabies (DC) Add. Discharge Instructions: The rabies immunoglobulin injected in your hand should significantly reduce any risk of developing rabies. The vaccine administered today will need to be repeated on day 3, 7 and 14. Return to the ER to have the rabies vaccine given in your arm on the following days: 10/10/2021 10/14/2021 10/21/2021 If you receive negative test results for rabies on the feline tissue samples sent to the lab then you do not need to complete the series any further. Return to your doctor or the ER if you have signs of increased infection, incre ased warmth, redness going up your arm, increased drainage from the wounds, fever, vomiting etc. LORI YAO Oct 07, 2021 08:37
--- NOTE | 2021-10-07 08:58 | Diagnostic Imaging Report ---
INDICATION: Right wrist pain. AP, oblique, lateral views of the right wrist are obtained. FINDINGS: No fracture or acute bony abnormality is seen. Joint spaces are unremarkable. IMPRESSION: Negative right wrist. Dictated by: Dictated on workstation # [id number]
--- NOTE | 2021-10-07 09:03 | Diagnostic Imaging Report ---
Hand pain EXAMINATION: Left hand 10/07/2021 FINDINGS: Examination of the left hand fails to reveal evidence of fracture, dislocation or other bony abnormality. IMPRESSION: Negative hand. Dictated by: Dictated on workstation # [id number]
== END 2021-10-07 09:35 | disposition home or self-care (01) ==
LOC: EDUNIT# 08:14 → ER 08:15
DX: S51.851A Open bite of right forearm, initial encounter (principal); S61.052A Open bite of left thumb without damage to nail, initial encounter; E66.9 Obesity, unspecified; Z68.41 Body mass index [BMI] 40.0-44.9, adult; Z23 Encounter for immunization; W55.01XA Bitten by cat, initial encounter
CPT/HCPCS: 73110; 73130; 90675; 90676; 99281

== ENCOUNTER 2021-10-10 12:25 | Outpatient (RCR) | payer OTHER ==
[2021-10-10 13:10] VITALS: BP 138/98
[2021-10-10] MEDS ORDERED: RABIES VACCINE HUMAN DIPL CELL 1 ML/2.5 UNITS SYR INJ ONE (13:15)
[2021-10-14] MEDS ORDERED: RABIES VACCINE HUMAN DIPL CELL 1 ML/2.5 UNITS SYR INJ ONE (13:15)
[2021-10-21] MEDS ORDERED: RABIES VACCINE HUMAN DIPL CELL 1 ML/2.5 UNITS SYR INJ ONE (13:15)
== END 2021-10-14 14:22 | disposition home or self-care (01) ==
LOC: SDC 12:25
PROVIDERS: ATTEND Nurse Practitioner Family
DX: Z23 Encounter for immunization (principal); W55.01XA Bitten by cat, initial encounter
CPT/HCPCS: 90471; 90675